=== PATIENT | male | born 1955 | race Caucasian/White ===

== ENCOUNTER → 2020-03-20 08:00 | Outpatient (BNVA) | payer BC, SELFPAY | PROVIDERS: PCP Internal Medicine; Visit Provider Physician Assistant | DX: Z76.89 Persons encountering health services in other specified circumstances (principal) ==

== ENCOUNTER 2020-03-25 07:49 | Outpatient (REF) | payer BC, SELFPAY ==
--- NOTE | 2020-03-25 | US_ITS ---
EXAMINATION: US RETROPERITONEAL LIMITED (RENAL ONLY) CLINICAL INFORMATION: Calculus of kidney COMPARISON: Renal ultrasounds 08/07/2019 and 01/22/2019. CT abdomen and pelvis 07/15/2017. X-ray abdomen KUB 12/31/2015. TECHNIQUE: Real-time imaging of the kidneys. FINDINGS: RIGHT KIDNEY: 13.1 x 5.3 x 7.0 cm (SAG x AP x TRV). The kidney is normal in size, contour, and echogenicity. Renal cortical thickness is normal. There is an anechoic cyst in the upper pole measuring 1.0 x 0.8 x 0.9 cm. There is an echogenic stone in the lower pole measuring 0.4 x 0.3 x 0.4 cm. There is no caliectasis or hydronephrosis. LEFT KIDNEY: 12.6 x 6.3 x 5.4 cm (SAG x AP x TRV). The kidney is normal in size, contour, and echogenicity. Renal cortical thickness is normal. No calculi or focal parenchymal lesions. No hydronephrosis. US/US renal BI IMPRESSION: 1. Small echogenic nonobstructive stone, lower pole right kidney. There is an anechoic cyst in the upper pole right kidney. 2. Unremarkable left kidney.
== END 2020-03-25 07:50 | disposition home or self-care (01) ==
LOC: HO.US 07:49
PROVIDERS: PCP Internal Medicine; Visit Provider Urology
DX: N20.0 Calculus of kidney (principal)
CPT/HCPCS: 76775

== ENCOUNTER 2020-05-29 11:31 | Day surgery (SDC) | payer BC, SELFPAY ==
[2020-05-23 15:10] VITALS: BMI 96.0
--- NOTE | 2020-05-28 08:39 | HO.ANESPROP2 ---
Documented by User: Morenita Ramires 05/28/20 08:47 HPI - Anesthesia Eval Consult details Narrative: 64yo M for Colonoscopy PMFSH Active Problems Active Problems: All Active Problems (Updated 05/23/20 @ 15:09 by Kathrine Maddox) HTN (hypertension) (Acute) Diabetes (Acute) Adenomatous colon polyp (Acute) Past Medical History Medical History Adenomatous colon polyp Diabetes HTN (hypertension) Hx of renal calculi Family History Family History Father CVD (cardiovascular disease) Mother Cancer Colon cancer Surgical History Surgical History H/O lithotripsy History of parotidectomy Hx of colonoscopy Hx of cystoscopy Tumor of parotid gland Social History Social History Household Members: Spouse Alcohol intake: current Alcohol intake frequency: holidays/special occasions only Smoking Status: Former smoker Smoking Quit Date: 2018 Use of substances other than those prescribed or required for medical reasons: No Advance Directives: No Advance Directives Information Provided: No Advance Directives on File: No Current occupational status: employed Current occupation: [employer] Meds Allergies Allergy/AdvReac Type Severity Reaction Status Date / Time mold Allergy Intermediate HAYFEVER Verified 01/24/20 09:03 metformin AdvReac Severe severe Verified 05/23/20 15:02 fatigue; exhaustion DUST Allergy Intermediate HAYFEVER Uncoded 01/03/20 14:39 Home Medications Medication Instructions Recorded Confirmed Last Taken Type glipizide 5 mg tablet 5 mg PO DAILY 01/25/20 05/23/20 Unknown History hydrochlorothiazide 25 mg tablet 25 mg PO DAILY 01/25/20 05/23/20 Unknown History lisinopril 40 mg tablet 40 mg PO DAILY 01/25/20 05/23/20 Unknown History sitagliptin 100 mg tablet 100 mg PO DAILY 01/25/20 05/23/20 Unknown History aspirin [Aspir-81] 81 mg PO DAILY 05/23/20 05/23/20 Unknown History Exam Exam Date and Time: May 28, 2020 0839 Height,Weight and Vital Signs: Height 5 ft 6 in Weight 270 kg Assessment and Plan Assessment Anesthesia Assessment: Chart Reviewed Documented by User: John Knox 05/29/20 12:09 PMFSH Past Medical History Medical History Adenomatous colon polyp Diabetes HTN (hypertension) Hx of renal calculi Family History Family History Father CVD (cardiovascular disease) Mother Cancer Colon cancer Surgical History Surgical History H/O lithotripsy History of parotidectomy Hx of colonoscopy Hx of cystoscopy Tumor of parotid gland Social History Social History Household Members: Spouse Alcohol intake: current Alcohol intake frequency: holidays/special occasions only Smoking Status: Former smoker Smoking Quit Date: 2018 Use of substances other than those prescribed or required for medical reasons: No Advance Directives: No Advance Directives Information Provided: No Advance Directives on File: No Current occupational status: employed Current occupation: [employer] Meds Allergies Allergy/AdvReac Type Severity Reaction Status Date / Time mold Allergy Intermediate HAYFEVER Verified 01/24/20 09:03 metformin AdvReac Severe severe Verified 05/23/20 15:02 fatigue; exhaustion DUST Allergy Intermediate HAYFEVER Uncoded 01/03/20 14:39 Home Medications Medication Instructions Recorded Confirmed Last Taken Type glipizide 5 mg tablet 5 mg PO DAILY 01/25/20 05/23/20 Unknown History hydrochlorothiazide 25 mg tablet 25 mg PO DAILY 01/25/20 05/23/20 Unknown History lisinopril 40 mg tablet 40 mg PO DAILY 01/25/20 05/23/20 Unknown History sitagliptin 100 mg tablet 100 mg PO DAILY 01/25/20 05/23/20 Unknown History aspirin [Aspir-81] 81 mg PO DAILY 05/23/20 05/23/20 Unknown History Exam Airway Mallampati Class: III TM Dist: >3cm Neck ROM: Full
[2020-05-29 12:02] VITALS: BP 151/94; PULSE 91; RESP 18; TEMP 36.8; O2SAT 97; BMI 43.6
[2020-05-29 12:03] LABS: Glucose, Whole Blood 189 mg/dL (60-115)
--- NOTE | 2020-05-29 12:15 | P.HPSUR_ITS ---
Pre-Procedural Eval Section B Chief Complaint: benign neoplasm of colon Relevant Family History (Specify if Yes): Yes Relevant Social History: None Present Medications: see Short Stay Collaborative assessment Medical History: Significant History (Adenomatous colon polyp Diabetes HTN (hypertension) Hx of renal calculi) History of Previous Operations: Relevant previous surgery/procedure and date(s) (H/O lithotripsy History of parotidectomy Hx of colonoscopy Hx of cystoscopy Tumor of parotid gland) Allergies: Allergies Allergy/AdvReac Type Severity Reaction Status Date / Time mold Allergy Intermediate HAYFEVER Verified 01/24/20 09:03 metformin AdvReac Severe severe Verified 05/23/20 15:02 fatigue; exhaustion DUST Allergy Intermediate HAYFEVER Uncoded 01/03/20 14:39 Review of Systems Sugical H&P ROS: Negative: Constitution, Cardiovascular, Respiratory, Neurologic al, Psychiatric, Hem-Onc, Allergic/Immunologic, Gastrointestinal, Genitourinary, Musculoskeletal, Integumentary, Endocrine and Eyes/Ears/Nose/Throat Exam Surgical H&P Exam: Normal: HEENT, Normal: Heart, Normal: Lungs, Normal: Extremities, Normal: Abdomen, Normal: Skin and Normal: Neurological Plan Diagnosis/Plan: Unchanged I have reviewed the history and physical and performed a pertinent physical examination on my patient. No changes have occurred unless specified.
[2020-05-29] MEDS: Lactated Ringers 1,000 ML 100 ML IVCONT (12:25)
--- NOTE | 2020-05-29 13:04 | P.OP_ITS ---
Operative Note Operative Note Date of Service: 05/29/20 Narrative: Operative Information Procedure Description: Colonoscopy COLONOSCOPY Instrument: Olympus variable stiffness pediatric scope 190L Colonoscopy Monitoring: Vital signs and clinical assessment, continuous EKG monitoring, Pulse oximetry, Carbon Dioxide monitoring and blood pressure monitoring were done throughout the procedure. Colon withdrawal time was 14 minutes. Procedure: The patient was placed in the left lateral decubitis position and pre-procedure medications were administered. After a digital rectal examination of the ano-rectum, the video colonoscope was inserted into the rectum and advanced through the colon to the cecum/TI. The colonoscope was slowly withdrawn in a retrograde panoramic fashion and the colon mucosa was carefully examined including a retroflexed view of the rectum. Findings and interventions are described below. Procedure Difficulty:easy Findings: Terminal Ileum-normal Cecum:normal Ascending Colon: x 3 sessile polyps removed, x2 removed with cold snare measured between 10-14 mm each and the third removed with forceps measured about 7 mm. One clip applied to the largest lesion defect, and retrieved polyp with net. Transverse Colon -normal Descending Colon: 7-8 mm sessile polyp removed with forceps Sigmoid Colon: moderate diverticulosis noted Rectum: Retroflexion with moderate sized internal hemorrhoids, grade I, prominent skin tag noted, small pinch biopsy taken due to slight irregularity at edge of it Anorectum - normal Colon preparation: [place] Bowel Preparation Scale Right colon; 2 Transverse colon: 3 Left colon; 3 (0 = Unprepared colon segment with mucosa not seen due to solid stool that cannot be cleared. 1 = Portion of mucosa of the colon segment seen, but other areas of the colon segment not well seen due to staining, residual stool and/or opaque liquid. 2 = Minor amount of residual staining, small fragments of stool and/or opaque liquid, but mucosa of colon segment seen well. 3 = Entire mucosa of colon segment seen well with no residual staining, small fragments of stool or opaque liquid) Impression and Post Procedure Diagnosis: polyps internal hemorrhoids diverticular disease Plan: High fiber diet leaflet Avoid straining at stool, epsom salts and sitz bath, anusol supps or cream prn Repeat Colonoscopy in 3 years or earlier if clinically indicated Above findings were reviewed with the patient and relevant handouts were provided if indicated.
--- NOTE | 2020-05-29 13:04 | PM.OP ---
Brief Operative Note Date of Service: 05/29/20 Pre-op diagnosis: hx of polyps Post-op diagnosis: same Procedure: see op note Surgeon: Valery Amor MD Anesthesia: MAC Estimated blood loss (mL): 0 Condition: stable Disposition: PACU
[2020-05-29 13:09] VITALS: BP 128/77; PULSE 81; RESP 20; TEMP 36.6; O2SAT 98
[2020-05-29 13:24] VITALS: BP 132/82; PULSE 78; RESP 20; TEMP 36.7; O2SAT 98
== END 2020-05-29 13:55 | disposition home or self-care (01) ==
PROVIDERS: PCP Internal Medicine; Visit Provider Internal Medicine Gastroenterology
PROC: 0DJD8ZZ Inspection of Lower Intestinal Tract, Via Natural or Artificial Opening Endoscopic (ICD-10-PCS; CPT 45378; principal; 2020-05-29 12:50)
DX: Z12.11 Encounter for screening for malignant neoplasm of colon (principal); D12.2 Benign neoplasm of ascending colon; D12.4 Benign neoplasm of descending colon; K57.30 Diverticulosis of large intestine without perforation or abscess without bleeding; K64.0 First degree hemorrhoids; K64.4 Residual hemorrhoidal skin tags; Z86.010 Personal history of colon polyps; I10 Essential (primary) hypertension; E11.9 Type 2 diabetes mellitus without complications; Z79.84 Long term (current) use of oral hypoglycemic drugs
CPT/HCPCS: 45380; 45385; 82947; 88305

== ENCOUNTER → 2020-08-07 08:45 | Outpatient (BNVA) | payer SELFPAY | PROVIDERS: PCP Internal Medicine; Visit Provider Physician Assistant Medical | DX: M47.892 Other spondylosis, cervical region (principal) ==

== ENCOUNTER 2020-11-10 07:44 | Outpatient (REF) | payer BC, SELFPAY ==
[2020-11-10 08:29] LABS: MANUAL DIFF FLAG NO
[2020-11-10 08:34] LABS: Basophils Absolute Auto 0.1 X10*3/uL (0.0-0.2); Basophils Percent Auto 0.8 % (0-2); Eosinophils Absolute Auto 0.3 X10*3/uL (0.0-0.4); Eosinophils Percent Auto 3.5 % (0-4); Hematocrit 44.5 % (42-52); Hemoglobin 15.7 g/dl (14.0-18.0); Imm Gran Abs Auto 0.05 X10*3/uL (0.00-0.03); Imm Gran Pct Auto 0.6 % (0.0-0.4); Lymphocytes Percent Auto 26.2 % (20-40); Mean Corpuscular HGB Conc 35.3 g/dl (31.0-36.0); Mean Corpuscular Hemoglobin 29.8 pg (27.0-33.0); Mean Corpuscular Volume 84.4 fL (80-98); Mean Platelet Volume 10.3 fL (9.4-12.4); Monocytes Absolute Auto 0.9 X10*3/uL (0.1-1.2); Monocytes Percent Auto 11.2 % (2-11); Neutrophils Absolute Auto 4.5 X10*3/uL (2.0-8.3); Neutrophils Percent Auto 57.7 % (45-73); Platelet Count 231 X10*3/uL (160-400); Red Blood Count 5.27 X10*6/uL (4.60-5.80); Red Cell Distribution Width 12.5 % (11.0-16.0); White Blood Count 7.8 X10*3/uL (4.8-10.8)
[2020-11-10 09:01] LABS: Alanine Aminotransferase 60 U/L (0-40); Alkaline Phosphatase 66 U/L (39-117); Anion Gap 14 (12-20); Aspartate Amino Transferase 50 U/L (5-37); Bilirubin Total 0.4 mg/dL (0.0-1.0); Blood Urea Nitrogen 12 mg/dL (9-16); Calcium 9.2 mg/dL (8.4-10.2); Carbon Dioxide 32 mmol/L (22-29); Chloride 97 mmol/L (96-108); Cholesterol 201 mg/dL; Estimated Glomerular Filt Rate > 60; Glucose Fasting 222 mg/dL (60-99); HDL Cholesterol 33 mg/dL; LDL Cholesterol Calculated 108 mg/dl; Sodium 140 mmol/L (135-145); Total Protein 7.1 g/dL (6.5-8.0); Triglycerides 304 mg/dL
[2020-11-10 09:03] LABS: Estimated Average Glucose 194 mg/dL; Hemoglobin A1c % 8.4 %
[2020-11-10 09:22] LABS: TSH reflex Free T4 2.26 uIU/mL (0.32-4.0)
[2020-11-10 10:35] LABS: Glucose Urine UA NEG (NEG); Leukocyte Esterase Urine NEG (NEG); Nitrite Urine NEG (NEG); PH 6.5 (5.0-8.0); Urine Blood NEG (NEG); Urine Ketones NEG (NEG); Urine Protein TRACE MG/DL (NEG-TRACE)
[2020-11-10 10:42] LABS: Appearance Urine CLEAR; Color Urine YELLOW
[2020-11-10 11:10] LABS: Creatinine Urine 268.92 mg/dL
== END 2020-11-10 07:45 | disposition home or self-care (01) ==
LOC: HO.LAB 07:44
PROVIDERS: Absent Provider Urology; PCP Internal Medicine; Visit Provider Internal Medicine
DX: Z01.83 Encounter for blood typing (principal); E66.01 Morbid (severe) obesity due to excess calories; Z68.41 Body mass index [BMI] 40.0-44.9, adult; E11.9 Type 2 diabetes mellitus without complications; E78.00 Pure hypercholesterolemia, unspecified; I10 Essential (primary) hypertension; N20.0 Calculus of kidney; G47.33 Obstructive sleep apnea (adult) (pediatric)
CPT/HCPCS: 36415; 80053; 80061; 81003; 82043; 83036; 84443; 85025; 86900; 86901

== ENCOUNTER → 2020-11-13 11:02 | Outpatient (BNVA) | payer BC, SELFPAY | PROVIDERS: PCP Internal Medicine; Visit Provider Urology ==

== ENCOUNTER 2021-07-29 07:13 | Outpatient (REF) | payer OTHER, SELFPAY ==
[2021-07-29 07:26] LABS: MANUAL DIFF FLAG NO
[2021-07-29 08:00] LABS: Basophils Absolute Auto 0.1 X10*3/uL (0.0-0.2); Basophils Percent Auto 0.8 % (0-2); Eosinophils Absolute Auto 0.5 X10*3/uL (0.0-0.4); Eosinophils Percent Auto 5.1 % (0-4); Hematocrit 44.5 % (42.0-52.0); Hemoglobin 15.6 g/dl (14.0-18.0); Imm Gran Abs Auto 0.09 X10*3/uL (0.00-0.03); Imm Gran Pct Auto 0.9 % (0.0-0.4); Lymphocytes Absolute Auto 2.4 X10*3/uL (1.2-4.9); Lymphocytes Percent Auto 23.9 % (20-40); Mean Corpuscular HGB Conc 35.1 g/dl (31.0-36.0); Mean Corpuscular Hemoglobin 30.8 pg (27.0-33.0); Mean Corpuscular Volume 87.8 fL (80.0-98.0); Mean Platelet Volume 10.3 fL (9.4-12.4); Monocytes Percent Auto 9.5 % (2-11); Neutrophils Percent Auto 59.8 % (45-73); Platelet Count 266 X10*3/uL (160-400); Red Blood Count 5.07 X10*6/uL (4.60-5.80); Red Cell Distribution Width 12.9 % (11.0-16.0); White Blood Count 10.1 X10*3/uL (4.8-10.8)
[2021-07-29 08:25] LABS: Alanine Aminotransferase 45 U/L (0-40); Alkaline Phosphatase 66 U/L (39-117); Anion Gap 15 (12-20); Aspartate Amino Transferase 37 U/L (5-37); Bilirubin Total 0.7 mg/dL (0.0-1.0); Blood Urea Nitrogen 13 mg/dL (9-16); Calcium 9.5 mg/dL (8.4-10.2); Carbon Dioxide 28 mmol/L (22-29); Chloride 99 mmol/L (96-108); Cholesterol 192 mg/dL; Estimated Glomerular Filt Rate > 60; Glucose Fasting 173 mg/dL (60-99); HDL Cholesterol 36 mg/dL; LDL Cholesterol Calculated 111 mg/dl; Potassium 3.6 mmol/L (3.3-5.1); Sodium 138 mmol/L (135-145); Total Protein 7.1 g/dL (6.5-8.0); Triglycerides 227 mg/dL
[2021-07-29 08:28] LABS: Estimated Average Glucose 154 mg/dL
[2021-07-29 08:52] LABS: TSH reflex Free T4 1.76 uIU/mL (0.32-4.0); Vitamin D 25-OH Total 11.6 ng/mL (>30)
[2021-07-29 11:36] LABS: Appearance Urine CLEAR; Color Urine YELLOW; Glucose Urine UA NEG (NEG); Leukocyte Esterase Urine NEG (NEG); Nitrite Urine NEG (NEG); PH 6.5 (5.0-8.0); Urine Blood NEG (NEG); Urine Ketones NEG (NEG); Urine Protein NEG (NEG-TRACE)
[2021-07-29 12:51] LABS: Creatinine Urine 140.45 mg/dL; Microalbum/Creatinine Ratio Ur 6.4 ug/mg cr
== END 2021-07-29 07:14 | disposition home or self-care (01) ==
LOC: HO.LAB 07:13
PROVIDERS: PCP Internal Medicine; Visit Provider Internal Medicine
DX: E11.65 Type 2 diabetes mellitus with hyperglycemia (principal); I10 Essential (primary) hypertension; E78.00 Pure hypercholesterolemia, unspecified; E55.9 Vitamin D deficiency, unspecified; N20.0 Calculus of kidney
CPT/HCPCS: 36415; 80053; 80061; 81003; 82043; 82306; 83036; 84443; 85025

== ENCOUNTER → 2021-08-06 11:17 | Outpatient (BNVA) | payer SELFPAY | PROVIDERS: PCP Internal Medicine; Visit Provider Physician Assistant | DX: Z02.79 Encounter for issue of other medical certificate (principal) ==

== ENCOUNTER 2021-12-17 06:28 | Outpatient (REF) | payer OTHER, SELFPAY ==
[2021-12-17 06:52] LABS: MANUAL DIFF FLAG NO
[2021-12-17 07:21] LABS: Estimated Average Glucose 137 mg/dL; Hemoglobin A1c % 6.4 %
[2021-12-17 07:35] LABS: Appearance Urine Clear; Color Urine Yellow; Glucose Urine UA Negative (Negative); Leukocyte Esterase Urine Negative (Negative); Nitrite Urine Negative (Negative); Urine Blood Negative (Negative); Urine Ketones Negative (Negative); Urine Protein Negative (Neg-Trace)
[2021-12-17 07:37] LABS: Basophils Absolute Auto 0.1 X10*3/uL (0.0-0.2); Basophils Percent Auto 0.8 % (0-2); Eosinophils Absolute Auto 0.5 X10*3/uL (0.0-0.4); Eosinophils Percent Auto 5.9 % (0-4); Hematocrit 45.8 % (42.0-52.0); Hemoglobin 15.8 g/dl (14.0-18.0); Imm Gran Abs Auto 0.07 X10*3/uL (0.00-0.03); Imm Gran Pct Auto 0.8 % (0.0-0.4); Lymphocytes Absolute Auto 2.9 X10*3/uL (1.2-4.9); Lymphocytes Percent Auto 32.9 % (20-40); Mean Corpuscular HGB Conc 34.5 g/dl (31.0-36.0); Mean Corpuscular Hemoglobin 30.2 pg (27.0-33.0); Mean Corpuscular Volume 87.6 fL (80.0-98.0); Mean Platelet Volume 10.3 fL (9.4-12.4); Monocytes Absolute Auto 0.9 X10*3/uL (0.1-1.2); Monocytes Percent Auto 10.5 % (2-11); Neutrophils Absolute Auto 4.3 x10*3/uL (2.0-8.3); Neutrophils Percent Auto 49.1 % (45-73); Platelet Count 239 X10*3/uL (160-400); Red Blood Count 5.23 X10*6/uL (4.60-5.80); White Blood Count 8.7 X10*3/uL (4.8-10.8)
[2021-12-17 07:47] LABS: Alanine Aminotransferase 38 U/L (0-40); Albumin Level 3.9 g/dL (3.5-5.0); Alkaline Phosphatase 64 U/L (39-117); Anion Gap 16 (12-20); Aspartate Amino Transferase 31 U/L (5-37); Bilirubin Total 0.4 mg/dL (0.0-1.0); Blood Urea Nitrogen 19 mg/dL (9-16); Calcium 8.9 mg/dL (8.4-10.2); Carbon Dioxide 29 mmol/L (22-29); Chloride 100 mmol/L (96-108); Cholesterol 222 mg/dL; Estimated Glomerular Filt Rate > 60; Glucose Fasting 154 mg/dL (60-99); HDL Cholesterol 37 mg/dL; LDL Cholesterol Calculated 132 mg/dl; Potassium 3.8 mmol/L (3.3-5.1); Sodium 141 mmol/L (135-145); Total Protein 6.9 g/dL (6.5-8.0); Triglycerides 268 mg/dL
[2021-12-17 08:08] LABS: TSH reflex Free T4 2.73 uIU/mL (0.32-4.0); Vitamin D 25-OH Total 27.5 ng/mL (>30)
[2021-12-17 08:37] LABS: Creatinine Urine 129.08 mg/dL; Microalbum/Creatinine Ratio Ur 6.1 ug/mg cr
== END 2021-12-17 06:29 | disposition home or self-care (01) ==
LOC: HO.LAB 06:28
PROVIDERS: PCP Internal Medicine; Visit Provider Internal Medicine
DX: I10 Essential (primary) hypertension (principal); E11.9 Type 2 diabetes mellitus without complications; E78.00 Pure hypercholesterolemia, unspecified; E55.9 Vitamin D deficiency, unspecified
CPT/HCPCS: 36415; 80053; 80061; 81003; 82043; 82306; 83036; 84443; 85025

== ENCOUNTER 2021-12-18 13:31 | Outpatient (REF) | payer OTHER, SELFPAY ==
--- NOTE | ~2021-12-18 | US_ITS ---
EXAMINATION: US RETROPERITONEAL LIMITED (RENAL ONLY) CLINICAL INFORMATION: Calculus kidney. COMPARISON: Renal ultrasound 03/25/2020 and 08/07/2019. CT abdomen and pelvis 07/15/2017. X-ray KUB 12/31/2015. TECHNIQUE: Real-time imaging of the kidneys. FINDINGS: RIGHT KIDNEY: 10.7 x 5.5 x 6.2 cm (SAG x AP x TRV). The kidney is normal in size, contour, and echogenicity. Renal cortical thickness is normal. There is a 5 x 4 mm stone in the lower pole. There is a 1 cm cyst in the upper pole. No hydronephrosis. LEFT KIDNEY: 12.7 x 6.2 x 5.5 cm (SAG x AP x TRV). The kidney is normal in size, contour, and echogenicity. Renal cortical thickness is normal. No calculi or focal parenchymal lesions. No hydronephrosis. US/US renal BI IMPRESSION: Right renal stone. Small right renal cyst..
== END 2021-12-18 13:32 | disposition home or self-care (01) ==
LOC: HO.US 13:31
PROVIDERS: Visit Provider Urology
DX: N20.0 Calculus of kidney (principal)
CPT/HCPCS: 76775

== ENCOUNTER 2022-05-13 07:08 | Outpatient (REF) | payer OTHER, SELFPAY ==
[2022-05-13 07:19] LABS: MANUAL DIFF FLAG NO
[2022-05-13 07:33] LABS: Basophils Absolute Auto 0.1 X10*3/uL (0.0-0.2); Basophils Percent Auto 0.8 % (0-2); Eosinophils Absolute Auto 0.5 X10*3/uL (0.0-0.4); Eosinophils Percent Auto 5.3 % (0-4); Hematocrit 47.6 % (42.0-52.0); Hemoglobin 16.4 g/dl (14.0-18.0); Imm Gran Abs Auto 0.07 X10*3/uL (0.00-0.03); Imm Gran Pct Auto 0.7 % (0.0-0.4); Lymphocytes Absolute Auto 2.7 X10*3/uL (1.2-4.9); Lymphocytes Percent Auto 27.1 % (20-40); Mean Corpuscular HGB Conc 34.5 g/dl (31.0-36.0); Mean Corpuscular Hemoglobin 29.6 pg (27.0-33.0); Mean Corpuscular Volume 85.9 fL (80.0-98.0); Mean Platelet Volume 10.2 fL (9.4-12.4); Monocytes Absolute Auto 1.1 X10*3/uL (0.1-1.2); Monocytes Percent Auto 10.4 % (2-11); Neutrophils Absolute Auto 5.6 x10*3/uL (2.0-8.3); Neutrophils Percent Auto 55.7 % (45-73); Platelet Count 261 X10*3/uL (160-400); Red Blood Count 5.54 X10*6/uL (4.60-5.80); Red Cell Distribution Width 12.6 % (11.0-16.0); White Blood Count 10.1 X10*3/uL (4.8-10.8)
[2022-05-13 07:42] LABS: Estimated Average Glucose 169 mg/dL; Hemoglobin A1c % 7.5 %
[2022-05-13 08:01] LABS: Alanine Aminotransferase 42 U/L (0-40); Alkaline Phosphatase 79 U/L (39-117); Anion Gap 15 (12-20); Aspartate Amino Transferase 40 U/L (5-37); Bilirubin Total 0.7 mg/dL (0.0-1.0); Blood Urea Nitrogen 18 mg/dL (9-16); Calcium 9.2 mg/dL (8.4-10.2); Carbon Dioxide 30 mmol/L (22-29); Chloride 99 mmol/L (96-108); Cholesterol 160 mg/dL; Estimated Glomerular Filt Rate > 60; Glucose Fasting 172 mg/dL (60-99); HDL Cholesterol 30 mg/dL; LDL Cholesterol Calculated 70 mg/dl; Potassium 3.5 mmol/L (3.3-5.1); Sodium 140 mmol/L (135-145); Total Protein 6.9 g/dL (6.5-8.0); Triglycerides 304 mg/dL
[2022-05-13 08:18] LABS: TSH reflex Free T4 1.97 uIU/mL (0.32-4.0); Vitamin D 25-OH Total 29.3 ng/mL (>30)
[2022-05-13 08:19] LABS: Appearance Urine Clear; Color Urine Yellow; Glucose Urine UA Negative (Negative); Leukocyte Esterase Urine Negative (Negative); Nitrite Urine Negative (Negative); Urine Blood Negative (Negative); Urine Ketones Negative (Negative); Urine Protein Negative (Neg-Trace)
[2022-05-13 08:34] LABS: Creatinine Urine 144.14 mg/dL; Microalbum/Creatinine Ratio Ur 7.6 ug/mg cr
== END 2022-05-13 07:09 | disposition home or self-care (01) ==
LOC: HO.LAB 07:08
PROVIDERS: PCP Internal Medicine; Visit Provider Internal Medicine
DX: E11.9 Type 2 diabetes mellitus without complications (principal); I10 Essential (primary) hypertension; E55.9 Vitamin D deficiency, unspecified; E78.00 Pure hypercholesterolemia, unspecified
CPT/HCPCS: 36415; 80053; 80061; 81003; 82043; 82306; 83036; 84443; 85025

== ENCOUNTER → 2022-07-09 09:10 | Outpatient (BNVA) | payer BC, SELFPAY | PROVIDERS: PCP Internal Medicine; Visit Provider Urology | DX: Z13.89 Encounter for screening for other disorder (principal) ==

== ENCOUNTER → 2022-07-12 08:59 | Outpatient (BNVA) | payer SELFPAY | PROVIDERS: PCP Internal Medicine; Visit Provider Physician Assistant Medical | DX: Z02.79 Encounter for issue of other medical certificate (principal) ==

== ENCOUNTER 2022-09-04 06:59 | Outpatient (REF) | payer BC, SELFPAY ==
[2022-09-04 07:45] LABS: Estimated Average Glucose 171 mg/dL; Hemoglobin A1c % 7.6 %
[2022-09-04 08:01] LABS: Alanine Aminotransferase 36 U/L (0-40); Albumin Level 3.7 g/dL (3.5-5.0); Alkaline Phosphatase 76 U/L (39-117); Anion Gap 11 (12-20); Aspartate Amino Transferase 34 U/L (5-37); Bilirubin Total 0.7 mg/dL (0.0-1.0); Blood Urea Nitrogen 12 mg/dL (9-16); Calcium 8.9 mg/dL (8.4-10.2); Carbon Dioxide 29 mmol/L (22-29); Chloride 104 mmol/L (96-108); Cholesterol 142 mg/dL; Estimated Glomerular Filt Rate > 60; Glucose Fasting 192 mg/dL (60-99); HDL Cholesterol 28 mg/dL; LDL Cholesterol Calculated 62 mg/dl; Potassium 3.4 mmol/L (3.3-5.1); Sodium 141 mmol/L (135-145); Total Protein 6.3 g/dL (6.5-8.0); Triglycerides 264 mg/dL
[2022-09-04 08:20] LABS: Appearance Urine Clear; Color Urine Yellow; Glucose Urine UA Negative (Negative); Leukocyte Esterase Urine Negative (Negative); Nitrite Urine Negative (Negative); Specific Gravity - Urine 1.025 (1.005-1.025); Urine Blood Negative (Negative); Urine Ketones Negative (Negative); Urine Protein Negative (Neg-Trace)
[2022-09-04 08:55] LABS: Creatinine Urine 218.27 mg/dL; Microalbum/Creatinine Ratio Ur 6.4 ug/mg cr
== END 2022-09-04 07:00 | disposition home or self-care (01) ==
LOC: HO.LAB 06:59
PROVIDERS: PCP Internal Medicine; Visit Provider Internal Medicine
DX: E78.00 Pure hypercholesterolemia, unspecified (principal); E11.9 Type 2 diabetes mellitus without complications; R30.0 Dysuria
CPT/HCPCS: 36415; 80053; 80061; 81003; 82043; 83036

== ENCOUNTER 2023-01-06 07:43 | Outpatient (REF) | payer MEDICARE, SELFPAY ==
--- NOTE | ~2023-01-06 | US_ITS ---
EXAMINATION: US RETROPERITONEAL LIMITED (RENAL ONLY) CLINICAL INFORMATION: Calculus of kidney. COMPARISON: Renal ultrasound 12/18/2021. CT abdomen and pelvis 07/15/2017. TECHNIQUE: Real-time imaging of the kidneys. FINDINGS: RIGHT KIDNEY: 12.4 x 6.0 x 6.1 cm (SAG x AP x TRV). The kidney is normal in size, contour, and echogenicity. Renal cortical thickness is normal. No hydronephrosis. Subcentimeter benign-appearing renal cysts, no follow-up imaging recommended. Nonobstructing lower pole renal stones measuring 7 mm, previously 8 mm and a new 4 mm nonobstructing lower pole renal stone. LEFT KIDNEY: 12.7 x 6.1 x 4.7 cm (SAG x AP x TRV). The kidney is normal in size, contour, and echogenicity. Renal cortical thickness is normal. No focal parenchymal lesions. Pelviectasis without rudi hydronephrosis. 2 mm nonobstructing left lower pole renal stone new from prior. US/US renal BI IMPRESSION: 1. Bilateral nonobstructing renal stones measuring up to 7 mm on the right and 2 mm on the left with some new from prior. 2. Left renal pelviectasis without rudi hydronephrosis.
== END 2023-01-06 07:44 | disposition home or self-care (01) ==
LOC: HO.US 07:43
PROVIDERS: PCP Internal Medicine; Visit Provider Urology
DX: N20.0 Calculus of kidney (principal)
CPT/HCPCS: 76775

== ENCOUNTER 2023-01-11 09:20 | Outpatient (AMB) | payer MEDICARE, SELFPAY ==
[2023-01-11 09:26] VITALS: BP 104/62; PULSE 98; O2SAT 99; BMI 45.1
--- NOTE | 2023-01-11 09:26 | A.OFFPC_ITS ---
Vital Signs 01/11/23 09:26 Height 5 ft 5 in Weight 271 lb BMI 45.1 BP 104/62 Blood Pressure Location Lt brachial Position Sitting Pulse 98 Pulse Source Pulse Oximeter Pulse Oximetry (%) 99 Oxygen Delivery Method Room Air Intake Visit Reasons: DM, hyperlipidemia, HTN Jd Edwards Consultant Required: No Accompanied by: Self / Same As Patient Allergies mold Allergy (Intermediate, Verified 01/11/23 09:54) HAYFEVER metformin Adverse Reaction (Severe, Verified 01/11/23 09:54) severe fatigue; exhaustion DUST Allergy (Intermediate, Uncoded 01/11/23 09:54) HAYFEVER Medication List - Last Reconciled 01/11/23 by Misha Lynne MD amlodipine 5 mg PO DAILY 90 days aspirin 81 mg PO DAILY atorvastatin 10 mg PO BEDTIME 90 days cholecalciferol (vitamin D3) 50 mcg PO DAILY 90 days clotrimazole-betamethasone 1-0.05 % 1 appl topical BID 2 weeks [CPAP DEVICE RESMED full face MASK MEDIUM As directed start 4-16 cm H2O hu midified AIR] glipizide ER 5 mg PO QAM 90 days hydrochlorothiazide 25 mg PO DAILY 90 days Januvia (sitagliptin phosphate) 100 mg PO DAILY 90 days NS lisinopril 40 mg PO DAILY 90 days orlistat (Eloy) 60 mg PO TID 30 days potassium chloride ER 20 mEq PO DAILY 90 days Tobacco use date assessed: 01/11/23 Fall risk assessment: No Falls in past year Last assessed Fall Risk: 01/11/23 Dental Screening Dental Screen Date: 01/11/23 Did you have a dental visit in the last 12 months?: No Did you have a dental problem in the last 6 months where you did not have access to dental care?: No Was dental information given to patient?: No HPI DM, hyperlipidemia, HTN HPI Details Patient comes in today for his follow up visit States that he feels okay He denies any headaches or dizziness Denies any chest pains, no SOB No nausea/vomiting, no abdominal pain No change in bowel habits noted Was not able to get his follow up labs done prior to his visit today [facility] Medical History Vitamin D deficiency Localized swelling, mass and lump, right upper limb Morbid obesity with BMI of 40.0-44.9, adult Obstructive sleep apnea Renal calculi Pure hypercholesterolemia Diabetes mellitus Benign essential hypertension Hx of renal calculi HTN (hypertension) Diabetes Adenomatous colon polyp Surgical History Hx of cystoscopy H/O lithotripsy Hx of colonoscopy (~03/15/17) 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 Family History Father CVD (cardiovascular disease) Mother Cancer Colon cancer Social History Household Members: Spouse Housing: House Alcohol intake: current Alcohol intake frequency: holidays/special occasions only Patient Tobacco Use Status: Former Tobacco user e-Cigarette/Vaping Use: Never Used Second Hand Smoke Exposure: No service: No Current occupational status: employed Current occupation: [employer] Cognitive needs: No Hearing needs: No Vision needs: No Questionnaire PHQ-9 Over the last 2 weeks, how often have you been bothered by any of the following problems? 1. Little interest or pleasure in doing things: not at all 2. Feeling down, depressed, or hopeless: not at all 3. Trouble falling or staying asleep, or sleeping too much: not at all 4. Feeling tired or having little energy: not at all 5. Poor appetite or overeating: not at all 6. Feeling bad about yourself - or that you are a failure or have let yourself or your family down: not at all 7. Trouble concentrating on things, such as reading the newspaper or watching television: not at all 8. Moving or speaking so slowly that other people could have noticed. Or the opposite - being so fidgety or restless that you have been moving around a lot more than usual: not at all 9. Thoughts that you would be better off or of hurting yourself in some way: not at all Total score: 0 Depression Screening Interpretation: Negative 84163 - PHQ-9 Billing: Yes Source: Developed by Drs. Jarad Vee, Stephany Nino, Ebenezer Ramirez and colleagues, with an educational dinh from [employer]. Thrive Questionnaire Date Thrive assessed: 01/11/23 I am a: Patient What is your living situation today?: I have a steady place to live Within the past 12 months, did the food you bought not last and you didn't have the money to get more?: Never true Within the past 12 months, did you worry whether your food would run out before you got money to buy more?: Never true Do you have trouble paying for medicines?: No Do you have trouble getting transportation to medical appointments?: No Do you have trouble paying your heating and electricity bill?: No Do you have trouble taking care of your child, family member or friend?: No Do you have trouble with day-to-day activities such as bathing, preparing meals, shopping, managing finances, etc.?: No Are you currently unemployed and looking for a job?: No Are you interested in more education?: No Please select the resources that you would like help with: None Currently or been in a relationship where the following occur: no concerns reported AUDIT C Alcohol Use Questionnaire (AUDIT-C) 1. How often do you have a drink containing alcohol?: Monthly or less 2. How many drinks containing alcohol do you have on a typical day when you are drinking?: 1 or 2 3. How often do you have six or more drinks on one occasion?: Never Total Score: 1 Score Reviewed/Action Taken: Yes JASPREET-7 AMB Questionnaire JASPREET-7 Date JASPREET - 7 assessed: 01/11/23 Feeling nervous, anxious, or on edge: 0 = Not at all Not being able to stop or control worryin = Not at all Worrying too much about different things: 0 = Not at all Trouble relaxin = Not at all Being so restless that it is hard to sit still: 0 = Not at all Becoming easily annoyed or irritable: 0 = Not at all Feeling afraid as if something awful might happen: 0 = Not at all Total JASPREET-7 score (0-4 normal; 5-9 mild; 10-14 moderate; 15-21 severe): 0 Source: Developed by Drs. Jarad Vee, Stephany Nino, Ebenezer Ramirez and colleagues, with an educational dinh from [employer]. Review of Systems Const Denies chills, Denies fatigue, Denies fever(s) and Denies headache(s) ENT Denies dysphagia, Denies dizziness, Denies otalgia, Denies headache(s), Denies neck pain, Denies odynophagia and Denies sore throat Card Denies chest pain, Denies palpitations and Denies dyspnea Resp Denies cough and Denies dyspnea GI Denies abdominal pain, Denies constipation, Denies dysphagia, Denies heartburn, Denies diarrhea, Denies nausea, Denies odynophagia and Denies vomiting Denies dysuria, Denies nocturia and Denies urinary frequency Musc Denies neck pain Neuro Denies dizziness and Denies headache(s) Endo Denies fatigue and Denies palpitations Physical exam (Primary Care) Vital Signs: Last Vital Signs Pulse 98 01/11/23 09:26 BP 104/62 01/11/23 09:26 Pulse Ox 99 01/11/23 09:26 Oxygen Delivery Method Room Air 01/11/23 09:26 BMI result Body Mass Index 45.1 Tobacco/Smoking Status: Tobacco use Status Tobacco use date assessed 01/11/23 01/11/23 09:39 Patient Tobacco Use Status Former Tobacco user 01/11/23 09:39 e-Cigarette/Vaping Use Never Used 01/11/23 09:39 PHQ-9: PHQ-9 Score PHQ-9: Total score 0 01/11/23 09:39 Depression Screening Interpretation: Negative Thrive Assessment: Date of Thrive Assessment Date Thrive assessed 01/11/23 01/11/23 09:39 Currently or been in a relationship where the following occur: no concerns reported Const General: no acute distress and alert HENMT Ears: TM's normal bilaterally and EAC's normal Throat: Yes posterior oropharynx normal and Yes tonsils normal (no TP congestion noted) Neck Neck: Yes no lymphadenopathy and Yes supple Resp Auscultation: clear to auscultation bilaterally, no rales and no wheezes Cardio Rate: regular rate Rhythm: regular rhythm Heart sounds: no murmurs GI Palpation (GI): Soft to palpation and nontender Auscultation: normal bowel sounds Extrem General: Yes no clubbing, cyanosis or edema Results AMB Hemoglobin A1c AMB Hemoglobin A1c 8.7 % Last Edit by Everett Rao on 01/11/23 09:57 Assessment and Plan Assessment & Plan (1) Diabetes mellitus: Code(s): E11.9 - Type 2 diabetes mellitus without complications Qualifiers: Diabetes mellitus type: type 2 Diabetes mellitus terminal clerk insulin use: without half-way use Diabetes mellitus complication status: with hyperglycemia Qualified Code(s): E11.65 - Type 2 diabetes mellitus with hyperglycemia Plan: In-office HgbA1c done today is at 8.7% (HgbA1c was at 7.6% a few months ago) - goal is < 7.0% Reinforced diabetic diet States that he is still on his [place] diet, which has helped him a lot in the past Continue Glipizide ER 5 mg Q AM and Januvia 100 mg QD for now but discussed that we may need to make some changes to his medications if he is not able to get his diabetes control back to goal over the next few months (2) Benign essential hypertension: Code(s): I10 - Essential (primary) hypertension Plan: Reinforced low sodium diet - goal is systolic BP of at least 130 to 140 mm or less Continue Lisinopril 40 mg QD, HCTZ 25 mg QD in AM and Amlodipine 5 mg QD (3) Pure hypercholesterolemia: Code(s): E78.00 - Pure hypercholesterolemia, unspecified Plan: Was not able to get his follow up labs done prior to his appointment today Reinforced low cholesterol diet Continue [place]-3 capsules 340 mg QD and Atorvastatin 10 mg QD Will recheck his labs and fasting lipids in 4 months for follow up - lab orders are printed out and handed to patient to help remind him to get these done in a few months BEFORE his next appointment (4) Obstructive sleep apnea: Code(s): G47.33 - Obstructive sleep apnea (adult) (pediatric) Plan: Patient continues to use his CPAP device regularly/daily when sleeping at night - states that it is helping a lot (5) Vitamin D deficiency: Code(s): E55.9 - Vitamin D deficiency, unspecified Plan: Continue Vitamin D3 2000 units QD Will recheck his Vitamin D level in 4 months for follow up (6) Renal calculi: Code(s): N20.0 - Calculus of kidney Plan: Composition of his stones in the past were mostly calcium oxalate He has been asymptomatic lately; is encouraged to continue to increase his oral fluid intake Just had a repeat renal US done a few days ago that revealed (+) bilateral nonobstructing renal stones measuring up to 7 mm on the right and 2 mm on the left with some new from prior. Left renal pelviectasis without rudi hydronephrosis Follow up with urology (Dr. Mckenzie) as scheduled (7) Morbid obesity with BMI of 40.0-44.9, adult: Code(s): E66.01 - Morbid (severe) obesity due to excess calories; Z68.41 - Body mass index [BMI] 40.0-44.9, adult Plan: Reinforced diet/exercise as tolerated/lose weight Plan Follow up in 4 months Orders: Orders Complete Blood Count Auto Diff 4 Months I10 - Essential (primary) hypertension Comprehensive [place]. Panel Fast 4 Months E78.00 - Pure hypercholesterolemia, unspecified Lipid Panel 4 Months E78.00 - Pure hypercholesterolemia, unspecified TSH reflex Free T4 4 Months E78.00 - Pure hypercholesterolemia, unspecified UA CC w/rflx Micro + Cult 4 Months R30.0 - Dysuria Hemoglobin A1c 4 Months E11.9 - Type 2 diabetes mellitus without complications Microalbumin, Random (w Creat) 4 Months E11.9 - Type 2 diabetes mellitus without complications AMB Hemoglobin A1c Today Z13.9 - Encounter for screening, unspecified Vitamin D 25-OH Total 4 Months E55.9 - Vitamin D deficiency, unspecified Coding Level of Care Code Est Pt Level 4 (47101) Diagnoses Type 2 diabetes mellitus with hyperglycemia, without long-term current use of insulin E11.65 Diabetes mellitus type: type 2 Diabetes mellitus terminal clerk insulin use: without terminal clerk use Diabetes mellitus complication status: with hyperglycemia Benign essential hypertension I10 Pure hypercholesterolemia E78.00 Obstructive sleep apnea G47.33 Vitamin D deficiency E55.9 Renal calculi N20.0 Morbid obesity with BMI of 40.0-44.9, adult E66.01; Z68.41
== END 2023-01-11 10:10 | disposition home or self-care (01) ==
PROVIDERS: Visit Provider Internal Medicine
DX: E11.65 Type 2 diabetes mellitus with hyperglycemia (principal); I10 Essential (primary) hypertension; E66.01 Morbid (severe) obesity due to excess calories; Z68.41 Body mass index [BMI] 40.0-44.9, adult
CPT/HCPCS: 83036; 99214

== ENCOUNTER 2023-01-12 08:49 | Outpatient (AMB) | payer MEDICARE, SELFPAY ==
--- NOTE | 2023-01-12 09:20 | MHC.OFFVIS ---
Intake Intake Visit Reasons: 6m/US(set) Intake Note: Patient is Present for Follow Up US Urology Medication: None Antibiotic Allergies: None Blood Thinners: Aspirin Pharmacy: [facility] Allergies mold Allergy (Intermediate, Verified 01/11/23 09:54) HAYFEVER metformin Adverse Reaction (Severe, Verified 01/11/23 09:54) severe fatigue; exhaustion DUST Allergy (Intermediate, Uncoded 01/11/23 09:54) HAYFEVER HPI HPI Comments History of Present Illness Details Mr Palmer is a very pleasant male. He is a patient of Dr Lynne. He is seen for the following urologic conditions. - nephrolithiasis Renal ultrasound 2 small stones on the right Otherwise stable Remain on potassium citrate Continue surveillance imaging Recently started podcast and YouTube channel Nephrolithiasis/Urolithiasis:? No imaging done recently Will plan on repeating in 6 months Should remain on potassium citrate Concomitant diagnosis includes diabetes ?Oxalate in sodium high ?Imaging 4 mm right stone ?Continue to follow. ? They are here for?further evaluation of nephrolithiasis ?- stone staying stable ? Urolithiasis was diagnosed?10/2015.? The patient previously had kidney stones whose composition w?calcium oxalate - monohydrate, calcium phosphate - brushite ?06/07 CaOxMono 75%.? Laboratory investigations include?pending.? 24 Hour urine evaluation?01/31 - Low Urine volume < 2.0 liters, Hypercalciuria (> 200mg), High oxalate > 30mg ?09/01 , Good Volume > 2.00 L, High Sodium (> 100mEq), High oxalate > 30mg, Hypercalciuria (> 200mg) ?07/03 , Good Volume > 2.00 L, Hypercalciuria (> 200mg), High Sodium (> 100mEq), High oxalate > 30mg, High Citrate ?02/02 , Good Volume > 2.00 L, High Citrate, High oxalate > 30mg, High Sodium (> 100mEq), Hypercalciuria (> 200mg ?08/04 , Good Volume > 2.00 L, Hypercalciuria (> 200mg) 282 ?09/04 good volume, high oxalate high sodium ? Prior treatment(s) include?01/31 , right, ureteroscopy ?09/01 , medical management, with allopurinol, , with thiazides ?07/03 indapamide, sildenafil ?06/07 USR right side ? Prior imaging includes?a CT (computed tomography) scan of the abdomen/pelvis (stone protocol) multiple right renal stones. Largest is 9 x 21 mm. Smaller right lower pole renal stones largest is 4 x 5 mm. Mild right hydronephrosis. No stone seen in the ureter. Left kidney no stone seen. ?02/01 - , a renal ultrasound - residual 5mm fragments ?07/03 , a renal ultrasound, showing radiodense stone(s), bilaterally ?08/03 , a CT (computed tomography) scan of the abdomen/pelvis (stone protocol), showing radiodense stone(s) small bilateral ?02/02 , a renal ultrasound right 5mm x3, left punctate ?08/04 , a renal ultrasound right 5mm x 3, left small ?02/03 , a renal ultrasound right multiple stones ?08/05 , a renal ultrasound, 4 mm right, nothing left - 04/06 renal ultrasound no stones seen - 01/07 renal ultrasound 4 mm right, no stone on left ? UA today shows?specific gravity within normal range suggestive of adequate hydration today.? Current therapeutic plan will be?indapamide 2.5, keep up fluids.? Risk, benefits and alternatives to therapy were discussed regarding the use and timing of prescribed medications. Pertinent side effects and interactions for medications were highlighted and adherence emphasized. 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 Family History Father CVD (cardiovascular disease) Mother Cancer Colon cancer Social History Household Members: Spouse Housing: House Alcohol intake: current Alcohol intake frequency: holidays/special occasions only Patient Tobacco Use Status: Former Tobacco user e-Cigarette/Vaping Use: Never Used Second Hand Smoke Exposure: No service: No Current occupational status: employed 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 [employer] Cognitive needs: No Hearing needs: No Vision needs: No Review of Systems Const Denies chills and Denies fever(s) Card Reports no additional complaints and Denies syncope Resp Denies cough GI Denies abdominal pain and Denies heartburn Reports as per HPI and Denies change in libido Neuro Denies syncope Psych Denies change in libido Endo Denies change in libido Physical Exam Const General: cooperative, healthy appearing, comfortable and no acute distress Orientation/consciousness: patient oriented x3 HEENT Face and sinus: Yes normal facial exam Mouth: moist mucous membranes Neck Neck: Yes normal visual inspection, Yes full ROM and Yes trachea midline Chest Chest palpation & inspection: normal inspection of the chest Resp Effort & Inspection: normal respiratory effort, able to speak in complete sentences and no respiratory distress GI Inspection: Yes normal to inspection Back/Spine/Pelvis Cervical Spine: normal cervical lordosis Thoracic/Lumbar Spine: thoracic and lumbar spine normal to inspection Skin General skin exam: no rashes or lesions noted Neuro General: patient oriented x3, gait normal, tone normal and moves all extremities Extrem General: Yes normal to inspection and Yes capillary refill normal Assessment & Plan Assessment & Plan (1) Renal calculi: Code(s): N20.0 - Calculus of kidney Plan Six month follow-up Orders: Orders Prostate Specific Antigen 6 Months N20.0 - Calculus of kidney US renal BI 6 Months N20.0 - Calculus of kidney Patient Instructions: Imaging studies, laboratory and physical exam results were discussed and reviewed in detail. No major barriers to patient understanding were identified. An opportunity to ask questions regarding the treatment plan was provided. All questions were answered. The patient expressed understanding and agreement with the above treatment plan. The patient is aware they should contact our office by phone for worsening of their current condition or the appearance of new urologic symptoms. Compliance is encouraged with any medications and followup testing that is ordered. It is a privilege to participate in the urologic care of your patient. If you have any questions or concerns regarding treatment for the above conditions, or other urologic issues, please do not hesitate to contact me. The office telephone contact is [phone]. This note is constructed using voice recognition software. While every effort has been made to ensure accuracy red leader errors may have been included. Yours sincerely, Dr Magdi Mckenzie MD, [facility] - Urology Providers of Expert, Compassionate Care for the Genitourinary System Coding Level of Care Code Est Pt Level 3 (58638) Diagnoses Renal calculi N20.0
== END 2023-01-12 10:16 | disposition home or self-care (01) ==
PROVIDERS: PCP Internal Medicine; Visit Provider Urology
DX: N20.0 Calculus of kidney (principal)
CPT/HCPCS: 99213

== ENCOUNTER → 2023-01-12 08:49 | Outpatient (BNVA) | payer BC, SELFPAY | PROVIDERS: Visit Provider Urology | DX: N20.0 Calculus of kidney (principal) | CPT/HCPCS: 99212 ==

== ENCOUNTER 2023-01-31 13:28 | Outpatient (AMB) | payer MEDICARE, SELFPAY ==
[2023-01-31 13:29] VITALS: BP 110/78; PULSE 98; O2SAT 97; BMI 44.0
--- NOTE | 2023-01-31 13:29 | A.OFFPC_ITS ---
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 Accompanied by: Self / Same As Patient Allergies mold Allergy (Intermediate, Verified 01/31/23 13:41) HAYFEVER metformin Adverse Reaction (Severe, Verified 01/31/23 13:41) severe fatigue; exhaustion DUST Allergy (Intermediate, Uncoded 01/31/23 13:41) HAYFEVER Medication List - Last Reconciled 01/31/23 by Misha Lynne MD amlodipine 5 mg PO DAILY 90 days aspirin 81 mg PO DAILY atorvastatin 10 mg PO BEDTIME 90 days cholecalciferol (vitamin D3) 50 mcg PO DAILY 90 days clotrimazole-betamethasone 1-0.05 % 1 appl topical BID 2 weeks [CPAP DEVICE RESMED full face MASK MEDIUM As directed start 4-16 cm H2O humid ified AIR] glipizide ER 5 mg PO QAM 90 days hydrochlorothiazide 25 mg PO DAILY 90 days Januvia (sitagliptin phosphate) 100 mg PO DAILY 90 days NS lisinopril 40 mg PO DAILY 90 days orlistat (Eloy) 60 mg PO TID 30 days potassium chloride ER 20 mEq PO DAILY 90 days Tobacco use date assessed: 01/31/23 Fall risk assessment: No Falls in past year Last assessed Fall Risk: 01/31/23 Dental Screening Dental Screen Date: 01/31/23 Did you have a dental visit in the last 12 months?: Yes Did you have a dental problem in the last 6 months where you did not have access to dental care?: No Was dental information given to patient?: Patient has dentist HPI right knee pain HPI Details Patient comes in complaining of increased right knee pain lately, primarily over the anteromedial side of the knee States that he has been moving a lot of stuffs in and out of his car lately but does not recall any particular incident wherein he could have hurt his knee States that he's had knee problems for years as 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) and often hears/feels a lot of clicking in his knees but states that they have never hurt as much as his right knee is now States that he has also noticed some swelling in his right knee lately No other acute complaints or symptoms are noted [facility] Medical History Vitamin D deficiency Localized swelling, mass and lump, right upper limb Morbid obesity with BMI of 40.0-44.9, adult Obstructive sleep apnea Renal calculi Pure hypercholesterolemia Diabetes mellitus Benign essential hypertension Hx of renal calculi HTN (hypertension) Diabetes Adenomatous colon polyp Surgical History Hx of cystoscopy H/O lithotripsy Hx of colonoscopy (~03/15/17) 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 1. Little interest or pleasure in doing things: not at all 2. Feeling down, depressed, or hopeless: not at all 3. Trouble falling or staying asleep, or sleeping too much: not at all 4. Feeling tired or having little energy: not at all 5. Poor appetite or overeating: not at all 6. Feeling bad about yourself - or that you are a failure or have let yourself or your family down: not at all 7. Trouble concentrating on things, such as reading the newspaper or watching television: not at all 8. Moving or speaking so slowly that other people could have noticed. Or the opposite - being so fidgety or restless that you have been moving around a lot more than usual: not at all 9. Thoughts that you would be better off or of hurting yourself in some way: not at all Total score: 0 Depression Screening Interpretation: Negative Depression Screening Done: Yes 30197 - PHQ-9 Billing: Yes Source: Developed by Drs. Jarad Vee, Stephany Nino, Ebenezer Ramirez and colleagues, with an educational dinh from [employer]. Thrive Questionnaire Date Thrive assessed: 01/31/23 I am a: Patient What is your living situation today?: I have a steady place to live Within the past 12 months, did the food you bought not last and you didn't have the money to get more?: Never true Within the past 12 months, did you worry whether your food would run out before you got money to buy more?: Never true Do you have trouble paying for medicines?: No Do you have trouble getting transportation to medical appointments?: No Do you have trouble paying your heating and electricity bill?: No Do you have trouble taking care of your child, family member or friend?: No Do you have trouble with day-to-day activities such as bathing, preparing meals, shopping, managing finances, etc.?: No Are you currently unemployed and looking for a job?: No Are you interested in more education?: No Please select the resources that you would like help with: None Currently or been in a relationship where the following occur: no concerns reported AUDIT C Alcohol Use Questionnaire (AUDIT-C) 1. How often do you have a drink containing alcohol?: Monthly or less 2. How many drinks containing alcohol do you have on a typical day when you are drinking?: 1 or 2 3. How often do you have six or more drinks on one occasion?: Never Total Score: 1 Score Reviewed/Action Taken: Yes JASPREET-7 AMB Questionnaire JASPREET-7 Date JASPREET - 7 assessed: 01/31/23 Feeling nervous, anxious, or on edge: 0 = Not at all Not being able to stop or control worryin = Not at all Worrying too much about different things: 0 = Not at all Trouble relaxin = Not at all Being so restless that it is hard to sit still: 0 = Not at all Becoming easily annoyed or irritable: 0 = Not at all Feeling afraid as if something awful might happen: 0 = Not at all Total JASPREET-7 score (0-4 normal; 5-9 mild; 10-14 moderate; 15-21 severe): 0 Source: Developed by Drs. Jarad Vee, Stephany Nino, Ebenezer Ramirez and colleagues, with an educational dinh from [email or web address]. Review of Systems Const Denies fatigue, Denies fever(s) and Denies headache(s) ENT Denies dysphagia, Denies dizziness, Denies headache(s), Denies neck pain, Denies odynophagia and Denies sore throat Card Denies chest pain, Denies palpitations and Denies dyspnea Resp Denies cough and Denies dyspnea GI Denies abdominal pain, Denies constipation, Denies dysphagia, Denies diarrhea, Denies nausea, Denies odynophagia and Denies vomiting Denies dysuria, Denies nocturia and Denies urinary frequency Musc Reports arthralgias (over the right knee lately, mostly over the anteromedial area), Reports joint swelling (mild, in the right knee) and Denies neck pain Neuro Denies dizziness and Denies headache(s) Endo Denies fatigue and Denies palpitations Physical exam (Primary Care) Vital Signs: Last Vital Signs Pulse 98 01/31/23 13:29 BP 110/78 01/31/23 13:29 Pulse Ox 97 01/31/23 13:29 Oxygen Delivery Method Room Air 01/31/23 13:29 BMI result Body Mass Index 44.0 Tobacco/Smoking Status: Tobacco use Status Tobacco use date assessed 01/31/23 01/31/23 13:34 Patient Tobacco Use Status Former Tobacco user 01/31/23 13:34 e-Cigarette/Vaping Use Never Used 01/31/23 13:34 PHQ-9: PHQ-9 Score PHQ-9: Total score 0 01/31/23 13:46 Depression Screening Interpretation: Negative Thrive Assessment: Date of Thrive Assessment Date Thrive assessed 01/31/23 01/31/23 13:34 Currently or been in a relationship where the following occur: no concerns reported Const General: no acute distress and alert Neck Neck: Yes no lymphadenopathy and Yes supple Resp Auscultation: clear to auscultation bilaterally, no rales and no wheezes Cardio Rate: regular rate Rhythm: regular rhythm Heart sounds: no murmurs GI Palpation (GI): Soft to palpation and nontender Extrem General: Yes no clubbing, cyanosis or edema Right lower extremity: knee Details: tenderness Location: of the medial joint line and swelling (mild) Assessment and Plan Assessment & Plan (1) Right knee pain: Code(s): M25.561 - Pain in right knee Qualifiers: Chronicity: unspecified Qualified Code(s): M25.561 - Pain in right knee Plan: Will send patient for right knee x-rays CHUNG for further evaluation Advised that further recommendations will depend on how his knee x-rays come out and that there is a possibility that we may need to refer him to orthopedics (2) Knee clicking: Code(s): R29.898 - Other symptoms and signs involving the musculoskeletal system Plan: Will also send him for left knee x-rays for further evaluation Plan Follow up as scheduled in April 2023 and PRN Orders: Orders XR knee RT 4V 01/31/23 M25.561 - Pain in right knee XR knee LT 4V 01/31/23 M25.562 - Pain in left knee Coding Level of Care Code Est Pt Level 3 (33829) Diagnoses Right knee pain, unspecified chronicity M25.561 Chronicity: unspecified Knee clicking R29.898
== END 2023-01-31 13:49 | disposition home or self-care (01) ==
PROVIDERS: PCP Internal Medicine; Visit Provider Internal Medicine
DX: M25.561 Pain in right knee (principal); R29.898 Other symptoms and signs involving the musculoskeletal system
CPT/HCPCS: 99213

== ENCOUNTER 2023-01-31 13:53 | Outpatient (REF) | payer MEDICARE, SELFPAY ==
--- NOTE | ~2023-01-31 | XR_ITS ---
EXAMINATION: XR KNEE, LEFT CLINICAL INFORMATION: Left knee pain COMPARISON: None available. TECHNIQUE: Four views of the left knee. FINDINGS: There is no evidence of fracture or dislocation. There is minimal spurring consistent lateral tibial plateau. There is narrowing and subluxation of the patella laterally. No evidence of joint effusion XR/XR knee LT 4V IMPRESSION: Changes of osteoarthritis in the patellofemoral compartment and lateral tibial plateau.
--- NOTE | ~2023-01-31 | XR_ITS ---
EXAMINATION: XR KNEE, RIGHT CLINICAL INFORMATION: Right knee pain COMPARISON: None available. TECHNIQUE: Four views of the right knee. FINDINGS: There is no evidence of fracture, dislocation. There is no narrowing of the joint spaces except of mild narrowing of the lateral compartment of patellofemoral joint. There is minimal marginal spurring seen in the lateral tibial plateau and lateral femoral condyle as well as patella. There is patellar enthesopathy. There is no joint effusion. XR/XR knee RT 4V IMPRESSION: Mild changes of degenerative osteoarthritis
== END 2023-01-31 13:54 | disposition home or self-care (01) ==
LOC: HO.XRAY 13:53
PROVIDERS: PCP Internal Medicine; Visit Provider Internal Medicine
DX: M25.561 Pain in right knee (principal); M25.562 Pain in left knee
CPT/HCPCS: 73564

== ENCOUNTER 2023-02-09 08:26 | Outpatient (AMB) | payer MEDICARE, SELFPAY ==
--- NOTE | 2023-02-09 08:36 | MHC.OFFVIS ---
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 The patient states that he injured his right knee several years ago. 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 He had acute onset of pain. Patient also has intermittent discomfort in his left knee. He states that his left knee pain is tolerable to him at this time. He describes his right knee pain as sharp in nature. Most of the pain is along the medial aspect of his knee. He has had injections in the past which gave him minimal relief. He has also done physical therapy for 12 weeks over the last 6 months which aggravated his pain. He has tried Tylenol and anti-inflammatory medicines which gave him minimal relief. The patient states that his right knee will give out several times per day. Allergies mold Allergy (Intermediate, Verified 02/09/23 08:45) HAYFEVER metformin Adverse Reaction (Severe, Verified 02/09/23 08:45) severe fatigue; exhaustion DUST Allergy (Intermediate, Uncoded 01/31/23 13:41) HAYFEVER Medication List - Last Reconciled 02/09/23 by Cas Francois MD amlodipine 5 mg PO DAILY 90 days aspirin 81 mg PO DAILY atorvastatin 10 mg PO BEDTIME 90 days cholecalciferol (vitamin D3) 50 mcg PO DAILY 90 days clotrimazole-betamethasone 1-0.05 % 1 appl topical BID 2 weeks [CPAP DEVICE RESMED full face MASK MEDIUM As directed start 4-16 cm H2O humidified AIR] glipizide ER 5 mg PO QAM 90 days hydrochlorothiazide 25 mg PO DAILY 90 days Januvia (sitagliptin phosphate) 100 mg PO DAILY 90 days NS lisinopril 40 mg PO DAILY 90 days orlistat (Eloy) 60 mg PO TID 30 days potassium chloride ER 20 mEq PO DAILY 90 days [facility] Medical History Vitamin D deficiency Localized swelling, mass and lump, right upper limb Morbid obesity with BMI of 40.0-44.9, adult Obstructive sleep apnea Renal calculi Pure hypercholesterolemia Diabetes mellitus Benign essential hypertension Hx of renal calculi HTN (hypertension) Diabetes Adenomatous colon polyp Surgical History Hx of cystoscopy H/O lithotripsy Hx of colonoscopy (~03/15/17) 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 Family History Father CVD (cardiovascular disease) Mother Cancer Colon cancer Social History Household Members: Spouse Housing: House Alcohol intake: current Alcohol intake frequency: holidays/special occasions only Patient Tobacco Use Status: Former Tobacco user e-Cigarette/Vaping Use: Never Used Second Hand Smoke Exposure: No service: No Current occupational status: employed 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 [employer] Cognitive needs: No Hearing needs: No Vision needs: No Physical Exam Const Other: Well-nourished well-developed very friendly male awake alert and oriented x3 in no acute distress Extrem Other: Bilateral lower extremity examination shows good capillary refill, no skin lesions noted, normal sensation light touch Right knee examination shows a minimal effusion, minimal crepitus with range of motion, tenderness along his medial joint line, positive Massiel's test, no instability Results Reviewed Results Reviewed: X-rays of the patient's right knee show mild diffuse joint space narrowing, no acute bony abnormalities Assessment & Plan Assessment & Plan (1) Right knee pain: Code(s): M25.561 - Pain in right knee Qualifiers: Chronicity: unspecified Qualified Code(s): M25.561 - Pain in right knee Plan Mr. Palmer presents with right knee pain and mechanical symptoms most likely due to a tear of his medial meniscus. Thus, I will send the patient for an MRI of his right knee for further evaluation. I will see him back once the MRI is completed to discuss the findings and treatment options. He will continue with his activity modifications in the meantime. Feel free to call me at any time should questions regarding his orthopedic management arise. Thank you very much for asking me to see this very friendly gentleman. I spent 22 minutes in reviewing the patient's records and imaging studies, seeing the patient and documenting in the medical record. Orders: Orders MR knee RT wo con Today M23.305 - Other meniscus derangements, unspecified medial meniscus, unspecified knee Coding Level of Care Code New Pt Level 2 (52923) Diagnoses Right knee pain, unspecified chronicity M25.561 Chronicity: unspecified
== END 2023-02-09 09:00 | disposition home or self-care (01) ==
PROVIDERS: PCP Internal Medicine; Visit Provider Orthopaedic Surgery
DX: M25.561 Pain in right knee (principal)
CPT/HCPCS: 99202

== ENCOUNTER → 2023-02-09 08:26 | Outpatient (BNVA) | payer MEDICARE, SELFPAY | PROVIDERS: PCP Internal Medicine; Visit Provider Orthopaedic Surgery | DX: M25.561 Pain in right knee (principal) | CPT/HCPCS: 99202 ==

== ENCOUNTER 2023-02-21 18:58 | Outpatient (REF) | payer MEDICARE, SELFPAY ==
--- NOTE | ~2023-02-21 | MR_ITS ---
EXAMINATION: MR KNEE WITHOUT CONTRAST, RIGHT CLINICAL INFORMATION: Right knee pain with minimal swelling. Evaluate for a meniscal tear. COMPARISON: Right knee radiographs dated 01/31/2023. TECHNIQUE: MRI of the knee without contrast was performed using routine sequences on a high-field scanner. FINDINGS: MENISCI: Medial Meniscus: Complex tearing of the posterior meniscal body with a near-complete radial component measuring up to 1.5 cm in AP dimension. There is a superiorly displaced meniscal flap adjacent to the meniscal body measuring up to 0.9 cm in craniocaudal dimension. Complex tearing extends along the inner margin and tibial articular surface of the posterior horn and root. Lateral Meniscus: Intact. LIGAMENTS: Cruciate: Intact. Collateral: Intact. EXTENSOR MECHANISM: Superior patellar enthesophytes. Intact quadriceps and patellar tendons. ARTICULAR CARTILAGE/BONE: Patellofemoral Compartment: Patellar median ridge and superior lateral patellar facet articular cartilage thinning with areas of full-thickness fissuring and mild subchondral cystic change. Central and medial trochlear signal heterogeneity and surface irregularity. Tiny marginal osteophytes. Medial Compartment: Weightbearing articular cartilage thinning with areas of full-thickness loss at the medial femoral condyle and medial tibial plateau where there is mild underlying subchondral marrow edema. Marginal osteophytes. Lateral Compartment: Intact articular cartilage. JOINT FLUID AND BURSAE: Moderate joint effusion and trace Stacy's cyst. MR/MR knee RT wo con IMPRESSION: 1. Complex tearing of the posterior medial meniscal body with a near-complete radial component as well as a superiorly displaced meniscal flap. Complex tearing extends along the inner margin and tibial articular surface of the posterior horn and root. 2. Moderate medial as well as mild patellofemoral compartment osteoarthritis. Moderate joint effusion and trace Stacy's cyst.
== END 2023-02-21 18:59 | disposition home or self-care (01) ==
LOC: HO.MRI 18:58
PROVIDERS: PCP Internal Medicine; Visit Provider Orthopaedic Surgery
DX: M23.303 Other meniscus derangements, unspecified medial meniscus, right knee (principal)
CPT/HCPCS: 73721

== ENCOUNTER 2023-02-23 10:23 | Outpatient (AMB) | payer MEDICARE, SELFPAY ==
--- NOTE | 2023-02-23 08:33 | A.OFFVIS_ITS ---
Intake Vital Signs 02/23/23 10:30 Height 5 ft 5 in Weight 264 lb BMI 43.9 Intake Visit Reasons: OV-B/L Knee injection Intake Note: Vincent is a 67 year old male who presents with complaints of progressively worsening right knee pain and giving way. Patient describes his pain as sharp in nature. His pain has gotten worse over the last year in spite of continued non operative treatments. He did injure his knee approximately 1 year ago. He twisted his knee and had acute onset of pain. He has tried Tylenol and anti- inflammatory medicines which gave him minimal relief. He has also done physical therapy exercises which aggravated his pain. Allergies mold Allergy (Intermediate, Verified 02/23/23 10:35) HAYFEVER metformin Adverse Reaction (Severe, Verified 02/23/23 10:35) severe fatigue; exhaustion DUST Allergy (Intermediate, Uncoded 01/31/23 13:41) HAYFEVER PFSH Medical History Vitamin D deficiency Localized swelling, mass and lump, right upper limb Morbid obesity with BMI of 40.0-44.9, adult Obstructive sleep apnea Renal calculi Pure hypercholesterolemia Diabetes mellitus Benign essential hypertension Hx of renal calculi HTN (hypertension) Diabetes Adenomatous colon polyp Surgical History Hx of cystoscopy H/O lithotripsy Hx of colonoscopy (~03/15/17) 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 Family History Father CVD (cardiovascular disease) Mother Cancer Colon cancer Social History Household Members: Spouse Housing: House Alcohol intake: current Alcohol intake frequency: holidays/special occasions only Patient Tobacco Use Status: Former Tobacco user e-Cigarette/Vaping Use: Never Used Second Hand Smoke Exposure: No service: No Current occupational status: employed Current occupation: [employer] Cognitive needs: No Hearing needs: No Vision needs: No Physical Exam Vital Signs: BMI result Body Mass Index 43.9 Const Other: Well-nourished well-developed very friendly male awake alert and oriented x3 in no acute distress Extrem Other: Bilateral lower extremity examination shows good capillary refill, no skin lesions noted, normal sensation light touch Right knee examination shows a minimal effusion, minimal crepitus with range of motion, tenderness along his medial joint line, positive Massiel's test, no instability Results Reviewed Results Reviewed: 02/23/23 10:29 Lidocaine HCl 2 % MPF [Xylocaine 2 % MPF] 5 ml .ROUTE .STK-MED ONE Triamcinolone Acetonide [Kenalog-40] 40 mg .ROUTE .STK-MED ONE MRI of the patient's right knee shows mild diffuse joint space narrowing as well as a tear of his medial meniscus, no acute bony abnormalities Assessment & Plan Assessment & Plan (1) Right knee pain: Code(s): M25.561 - Pain in right knee Qualifiers: Chronicity: unspecified Qualified Code(s): M25.561 - Pain in right knee Plan: Mr. Palmer presents with right knee pain and mechanical symptoms due to early degenerative joint disease as well as a tear of his medial meniscus. I had a lengthy discussion with the patient regarding the treatment options. She wishes to hold off on surgery for as long as possible. I agree with his plan. The risks and benefits of a right knee cortisone injection were discussed at length with the patient. The patient wished to proceed. He tolerated the injection well. He will continue with his activity modifications. He will follow up with me on an as-needed basis should his symptoms not plateau at an unacceptable level over the next few months. Feel free to call me at any time should questions regarding his orthopedic management arise. I spent 22 minutes in reviewing the patient's records and imaging studies, seeing the patient and documenting in the medical record. Orders: Orders AMB Joint Injection/Aspiration 02/23/23 M25.561 - Pain in right knee Coding Level of Care Code Est Pt Level 2 (18765) Diagnoses Right knee pain, unspecified chronicity M25.561 Chronicity: unspecified
[2023-02-23 10:30] VITALS: BMI 43.9
== END 2023-02-23 11:14 | disposition home or self-care (01) ==
PROVIDERS: PCP Internal Medicine; Visit Provider Orthopaedic Surgery
DX: M25.561 Pain in right knee (principal)
CPT/HCPCS: 20610; 99212

== ENCOUNTER → 2023-02-23 10:23 | Outpatient (BNVA) | payer MEDICARE, SELFPAY | PROVIDERS: PCP Internal Medicine; Visit Provider Orthopaedic Surgery | DX: M25.561 Pain in right knee (principal) | CPT/HCPCS: 20610; 99212; J3301 ==

== ENCOUNTER 2023-03-17 07:46 | Outpatient (AMB) | payer MEDICARE, SELFPAY ==
[2023-03-17 07:52] VITALS: BP 118/80; PULSE 92; O2SAT 98; BMI 43.9
--- NOTE | 2023-03-17 07:52 | A.OFFPC_ITS ---
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 Accompanied by: Self / Same As Patient Allergies mold Allergy (Intermediate, Verified 03/17/23 07:57) HAYFEVER metformin Adverse Reaction (Severe, Verified 03/17/23 07:57) severe fatigue; exhaustion DUST Allergy (Intermediate, Uncoded 01/31/23 13:41) HAYFEVER Tobacco use date assessed: 01/31/23 Fall risk assessment: No Falls in past year Last assessed Fall Risk: 03/17/23 Dental Screening Dental Screen Date: 03/17/23 Did you have a dental visit in the last 12 months?: No Did you have a dental problem in the last 6 months where you did not have access to dental care?: No Was dental information given to patient?: Patient has dentist HPI HPI Comments History of Present Illness Details 67-year-old male past medical history si gnificant for hypertension, type 2 diabetes mellitus, hypercholesteremia, ELIZABET and bilateral osteoarthritis of knees. Patient of Dr. Lynne presents today for preop appointment for right knee replacement under general anesthesia. Patient has upcoming surgery scheduled for 04/08/[address] Francois. Patient denies any previous complications to being under general anesthesia. Denies CP, palpitations, sob and syncope. Pre-op labs and EKG ordered. 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 Family History Father CVD (cardiovascular disease) Mother Cancer Colon cancer Social History Household Members: Spouse Housing: House Alcohol intake: current Alcohol intake frequency: holidays/special occasions only Patient Tobacco Use Status: Former Tobacco user e-Cigarette/Vaping Use: Never Used Second Hand Smoke Exposure: No service: No Current occupational status: employed 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 Jarad Vee, Stephany Nino, Ebenezer aRmirez and colleagues, with an educational dinh from [employer]. Review of Systems Const Denies chills, Denies fatigue, Denies fever(s) and Denies poor appetite Eyes Denies no additional complaints ENT Reports Normal hearing present Card Denies chest pain, Denies syncope, Denies rapid heart rate and Denies dyspnea Resp Denies cough and Denies dyspnea GI Denies change in stool character, Denies constipation, Denies diarrhea, Denies nausea and Denies vomiting Denies dysuria, Denies urinary frequency and Denies urinary urgency Neuro Reports Normal hearing present, Denies confusion and Denies syncope Psych Denies confusion Endo Denies fatigue Physical exam (Primary Care) Vital Signs: Last Vital Signs Pulse 92 03/17/23 07:52 BP 118/80 03/17/23 07:52 Pulse Ox 98 03/17/23 07:52 Oxygen Delivery Method Room Air 03/17/23 07:52 BMI result Body Mass Index 43.9 Tobacco/Smoking Status: Tobacco use Status Tobacco use date assessed 01/31/23 03/17/23 07:59 Patient Tobacco Use Status Former Tobacco user 03/17/23 07:59 e-Cigarette/Vaping Use Never Used 03/17/23 07:59 Thrive Assessment: Date of Thrive Assessment Date Thrive assessed 01/31/23 03/17/23 07:59 Const General: No confusion Orientation/consciousness: No confusion HENMT Head: Yes normocephalic and Yes atraumatic Eyes Conjunctivae: conjunctivae normal Chest Chest palpation & inspection: normal inspection of the chest Resp Effort & Inspection: normal respiratory effort Auscultation: clear to auscultation bilaterally, no crackles, no rhonchi and no wheezes Cardio Rate: regular rate Rhythm: regular rhythm Heart sounds: S1 normal heart sound present and S2 normal heart sound present GI Inspection: Yes normal to inspection General: Yes no CVA tenderness Back/Spine/Pelvis Back: no CVA tenderness Neuro General: No confusion Cranial nerves: Yes Normal hearing present Extrem General: No edema Assessment and Plan Assessment & Plan (1) HTN (hypertension): Code(s): I10 - Essential (primary) hypertension Plan: Continue on amlodipine, hydrochlorothiazide and lisinopril. Blood pressure below goal in office today. 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 Remember that fruits are good but they also have sugar. (3) Preop examination: Code(s): Z01.818 - Encounter for other preprocedural examination Plan: Preop labs and EKG ordered. Once preop labs and EKG reviewed addendum will be made to this note with patient able to proceed with scheduled right knee arthroscopy Patient advised to hold aspirin 7 days prior to procedure. Patient advised to hold glipizide and Januvia morning of procedure. Plan Keep scheduled follow-up with PCP or follow-up sooner if needed. Orders: Orders Comprehensive Met. Panel Today Z01.812 - Encounter for preprocedural laboratory examination Complete Blood Count Auto Diff Today Z01.812 - Encounter for preprocedural laboratory examination TSH reflex Free T4 Today Z13.29 - Encounter for screening for other suspected endocrine disorder Prothrombin Time INR Today Z01.812 - Encounter for preprocedural laboratory examination ECG 12 lead EKG Today Z01.818 - Encounter for other preprocedural examination Coding Level of Care Code Est Pt Level 3 (27441) Diagnoses HTN (hypertension) I10 Type 2 diabetes mellitus with hyperglycemia, without long-term current use of insulin E11.65 Diabetes mellitus type: type 2 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
== END 2023-03-17 09:48 | disposition home or self-care (01) ==
PROVIDERS: PCP Internal Medicine; Visit Provider Nurse Practitioner Family
DX: I10 Essential (primary) hypertension (principal); E11.65 Type 2 diabetes mellitus with hyperglycemia; Z01.818 Encounter for other preprocedural examination
CPT/HCPCS: 99213

== ENCOUNTER 2023-03-21 07:25 | Outpatient (REF) | payer MEDICARE, SELFPAY ==
[2023-03-21 07:42] LABS: MANUAL DIFF FLAG NO
[2023-03-21 08:36] LABS: Basophils Absolute Auto 0.1 X10*3/uL (0.0-0.2); Basophils Percent Auto 0.8 % (0-2); Eosinophils Absolute Auto 0.5 X10*3/uL (0.0-0.4); Hematocrit 48.2 % (42.0-52.0); Hemoglobin 16.5 g/dl (14.0-18.0); Imm Gran Abs Auto 0.06 X10*3/uL (0.00-0.03); Imm Gran Pct Auto 0.6 % (0.0-0.4); Lymphocytes Absolute Auto 2.8 X10*3/uL (1.2-4.9); Lymphocytes Percent Auto 29.1 % (20-40); Mean Corpuscular HGB Conc 34.2 g/dl (31.0-36.0); Mean Corpuscular Hemoglobin 29.7 pg (27.0-33.0); Mean Corpuscular Volume 86.8 fL (80.0-98.0); Mean Platelet Volume 10.3 fL (9.4-12.4); Monocytes Percent Auto 10.9 % (2-11); Neutrophils Absolute Auto 5.1 x10*3/uL (2.0-8.3); Neutrophils Percent Auto 53.6 % (45-73); Platelet Count 304 X10*3/uL (160-400); Red Blood Count 5.55 X10*6/uL (4.60-5.80); Red Cell Distribution Width 12.6 % (11.0-16.0); White Blood Count 9.6 X10*3/uL (4.8-10.8)
[2023-03-21 08:39] LABS: Prothrombin Time 11.8 SEC (11.1-13.3)
[2023-03-21 09:17] LABS: Alanine Aminotransferase 39 U/L (0-40); Albumin Level 3.9 g/dL (3.5-5.0); Alkaline Phosphatase 78 U/L (39-117); Anion Gap 14 (12-20); Aspartate Amino Transferase 32 U/L (5-37); Bilirubin Total 0.5 mg/dL (0.0-1.0); Blood Urea Nitrogen 13 mg/dL (9-16); Calcium 9.3 mg/dL (8.4-10.2); Carbon Dioxide 28 mmol/L (22-29); Chloride 101 mmol/L (96-108); Estimated Glomerular Filt Rate > 60; Glucose Random 196 mg/dL (60-115); Potassium 3.9 mmol/L (3.3-5.1); Sodium 139 mmol/L (135-145); Total Protein 7.1 g/dL (6.5-8.0)
[2023-03-21 09:25] LABS: TSH reflex Free T4 2.52 uIU/mL (0.32-4.0)
--- NOTE | 2023-03-21 13:16 | ECG_ITS ---
Test Reason : pre op Blood Pressure : / mmHG Vent. Rate : 101 BPM Atrial Rate : 101 BPM P-R Int : 180 ms QRS Dur : 084 ms QT Int : 352 ms P-R-T Axes : 025 029 035 degrees QTc Int : 456 ms Sinus tachycardia Otherwise normal ECG When compared with ECG of 07-MAY-2004 16:37, Premature atrial complexes are no longer Present Referred By: Olimpia Willis Electronically Signed By:ANDREW ALLEN
== END 2023-03-21 07:26 | disposition home or self-care (01) ==
LOC: HO.LAB 07:25
PROVIDERS: PCP Internal Medicine; Visit Provider Nurse Practitioner Family
DX: Z01.818 Encounter for other preprocedural examination (principal); Z01.812 Encounter for preprocedural laboratory examination; Z13.29 Encounter for screening for other suspected endocrine disorder
CPT/HCPCS: 36415; 80053; 84443; 85025; 85610; 93005

== ENCOUNTER → 2023-03-21 13:16 | Outpatient (BNV) | payer MEDICARE, SELFPAY | PROVIDERS: PCP Internal Medicine; Visit Provider Internal Medicine | DX: R00.0 Tachycardia, unspecified (principal) | CPT/HCPCS: 93010 ==

== ENCOUNTER 2023-03-29 08:55 | Outpatient (AMB) | payer MEDICARE, SELFPAY ==
--- NOTE | 2023-03-29 09:31 | MHC.OFFVIS ---
Intake Intake Visit Reasons: Pre-Rt Knee Intake Note: Vincent is a 67 year old male who presents with complaints of progressively worsening right knee pain and giving way. Patient describes his pain as sharp in nature. His pain has gotten worse over the last year in spite of continued non operative treatments. He did injure his knee approximately 1 year ago. He twisted his knee and had acute onset of pain. He has tried Tylenol and anti-inflammatory medicines which gave him minimal relief. He has also done physical therapy exercises which aggravated his pain. He has had multiple injections. The most recent injection gave him only temporary relief. The patient states that his right knee will give out several times per day. Allergies mold Allergy (Intermediate, Verified 03/17/23 07:57) HAYFEVER metformin Adverse Reaction (Severe, Verified 03/17/23 07:57) severe fatigue; exhaustion DUST Allergy (Intermediate, Uncoded 01/31/23 13:41) HAYFEVER PFSH Medical History (Updated 03/28/23 @ 10:28 by Brandy Cohen RN) Warthin's tumor Vitamin D deficiency Localized swelling, mass and lump, right upper limb Morbid obesity with BMI of 40.0-44.9, adult Obstructive sleep apnea Renal calculi Pure hypercholesterolemia Benign essential hypertension Hx of renal calculi HTN (hypertension) Diabetes Adenomatous colon polyp Surgical History (Updated 03/28/23 @ 10:26 by Brandy Cohen RN) Hx of cystoscopy Hx of cystoscopy H/O lithotripsy Hx of colonoscopy (~03/15/17) History of parotidectomy Family History Father CVD (cardiovascular disease) Mother Cancer Colon cancer Social History Household Members: Spouse Housing: House Alcohol intake: current Alcohol intake frequency: holidays/special occasions only Patient Tobacco Use Status: Former Tobacco user e-Cigarette/Vaping Use: Never Used Second Hand Smoke Exposure: No service: No Current occupational status: employed Current occupation: [employer] Cognitive needs: No Hearing needs: No Vision needs: No Physical Exam Const Other: Well-nourished well-developed very friendly male awake alert and oriented x3 in no acute distress Lungs - clear to auscultation bilaterally with symmetric expansion Cardiovascular exam - regular rate and rhythm Abdominal exam - soft nontender nondistended Extrem Other: Right knee examination shows a minimal effusion, minimal crepitus with range of motion, tenderness along his medial joint line, positive Massiel's test, no instability Results Reviewed Results Reviewed: Standing full weight-bearing x-rays of the patient's right knee show mild grade 1 diffuse joint space narrowing, no acute bony abnormalities MRI of the patient's right knee shows mild diffuse degenerative changes as well as a tear of the medial meniscus Assessment & Plan Assessment & Plan (1) Right knee pain: Code(s): M25.561 - Pain in right knee Qualifiers: Chronicity: unspecified Qualified Code(s): M25.561 - Pain in right knee Plan Mr. Palmer presents with right knee pain and mechanical symptoms due to a tear of his medial meniscus. I had a lengthy discussion with the patient regarding the treatment options. At this point he has failed continued non operative treatments. The risks and benefits of right knee arthroscopic surgery were discussed at length with the patient. The patient wishes to proceed with surgery. He does understand that he may not get 100% relief of his symptoms depending on the severity of his degenerative changes. Surgery will most likely involve right knee diagnostic arthroscopy with arthroscopic partial medial meniscectomy. The patient was given a prescription for Percocet at his preoperative appointment. He will follow-up as instructed. Feel free to call me at any time should questions regarding his orthopedic management arise. I spent 22 minutes in reviewing the patient's records and imaging studies, seeing the patient and documenting in the medical record. Medications: New oxycodone-acetaminophen 5-325 mg (Percocet) Partial Fill upon patient request. 1 tab PO Q6H PRN 20 tabs 0RF pain Coding Level of Care Code Est Pt Level 2 (39950) Diagnoses Right knee pain, unspecified chronicity M25.561 Chronicity: unspecified
== END 2023-03-29 09:41 | disposition home or self-care (01) ==
PROVIDERS: PCP Internal Medicine; Visit Provider Orthopaedic Surgery
DX: M25.561 Pain in right knee (principal)
CPT/HCPCS: 99212

== ENCOUNTER → 2023-03-29 08:55 | Outpatient (BNVA) | payer MEDICARE, SELFPAY | PROVIDERS: PCP Internal Medicine; Visit Provider Orthopaedic Surgery | DX: M25.561 Pain in right knee (principal) | CPT/HCPCS: 99212 ==

== ENCOUNTER 2023-04-08 09:30 | Day surgery (SDC) | payer MEDICARE, SELFPAY ==
[2023-03-29 12:14] VITALS: BP 111/70; PULSE 86; RESP 20; O2SAT 98; BMI 43.9
--- NOTE | 2023-03-29 12:27 | HO.ANESPROP2 ---
Documented by User: Morenita Ramires NP 03/29/23 12:34 HPI - Anesthesia Eval Consult details Narrative: 67yo M for Knee Arthroscopy, partial medial meniscectomy, possible lateral meniscectomy Medically optimized No recent illness No CP/SOB within limits of pain, able to do stairs ELIZABET. CPAP QHS. DM. Does not check BS at home PMFSH Active Problems Active Problems: All Active Problems (Updated 03/29/23 @ 12:08 by Brandy Cohen RN) Bilateral primary osteoarthritis of knee (Acute) Knee clicking (Acute) Left knee pain (Acute) Right knee pain (Acute) Rash (Acute) Dystrophic nail (Acute) Annual physical exam (Acute) Diabetes mellitus (Acute) Vitamin D deficiency (Acute) Localized swelling, mass and lump, right upper limb (Acute) Morbid obesity with BMI of 40.0-44.9, adult (Acute) Obstructive sleep apnea (Acute) Renal calculi (Acute) Pure hypercholesterolemia (Acute) Benign essential hypertension (Acute) HTN (hypertension) (Acute) Diabetes (Acute) Adenomatous colon polyp (Acute) Past Medical History Medical History (Updated 03/29/23 @ 12:08 by Brandy Cohen RN) Arthritis Warthin's tumor Vitamin D deficiency Localized swelling, mass and lump, right upper limb Morbid obesity with BMI of 40.0-44.9, adult Obstructive sleep apnea Renal calculi Pure hypercholesterolemia Benign essential hypertension Hx of renal calculi HTN (hypertension) Diabetes Adenomatous colon polyp Family History Family History Father CVD (cardiovascular disease) Mother Cancer Colon cancer Family history of problems with anesthesia: No Surgical History Surgical History (Updated 03/29/23 @ 12:09 by Brandy Cohen RN) Hx of appendectomy Hx of cystoscopy Hx of cystoscopy H/O lithotripsy Hx of colonoscopy (~03/15/17) History of parotidectomy History of Problems with Anesthesia: No Social History Social History Household Members: Spouse Housing: House Are you a primary intensive care anaesthetist to a significant other at home: No Do you presently have visiting nurse or other home services: No Alcohol intake: current Alcohol intake frequency: holidays/special occasions only Comment: uses cane as needed with current knee issue Patient Tobacco Use Status: Former Tobacco user Quit Date: age 62 Tobacco use type: Cigarette Years Smoked: 30 e-Cigarette/Vaping Use: Never Used Second Hand Smoke Exposure: No service: No Current occupational status: employed Current occupation: [employer] Cognitive needs: No Hearing needs: No Vision needs: No Meds Allergies Allergy/AdvReac Type Severity Reaction Status Date / Time mold Allergy Intermediate HAYFEVER Verified 03/17/23 07:57 metformin AdvReac Severe severe Verified 03/17/23 07:57 fatigue; exhaustion DUST Allergy Intermediate HAYFEVER Uncoded 01/31/23 13:41 Home Medications Medication Instructions Recorded Confirmed Last Taken Type aspirin 81 mg tablet,delayed 81 mg PO DAILY 05/23/20 03/29/23 05/29/20 History release Exam Height,Weight and Vital Signs: Height 5 ft 5 in Weight 119.748 kg Last Vital Signs Pulse 86 03/29/23 12:14 Resp 20 03/29/23 12:14 BP 111/70 03/29/23 12:14 Pulse Ox 98 03/29/23 12:14 O2 Del Method Room Air 03/29/23 12:14 Pertinent Lab Results Pertinent Lab Results: Laboratory Tests 03/21/23 07:40 WBC 9.6 Hgb 16.5 Hct 48.2 Plt Count 304 Sodium 139 Potassium 3.9 Chloride 101 Carbon Dioxide 28 BUN 13 Creatinine 1.00 Narrative Narrative: EKG 03/2023 Vent. Rate : 101 BPM Atrial Rate : 101 BPM P-R Int : 180 ms QRS Dur : 084 ms QT Int : 352 ms P-R-T Axes : 025 029 035 degrees QTc Int : 456 ms Sinus tachycardia Otherwise normal ECG When compared with ECG of 07-MAY-2004 16:37, Premature atrial complexes are no longer Present Airway Mallampati Class: III TM Dist: >3cm Neck ROM: Full Loose/Missing/Broken Teeth: Yes (missing molars) Heart: RRR Lungs: CTAB Assessment and Plan Assessment Anesthesia Assessment: Anesthesia Plan Discussed and PAT Visit Final Anesthetic Review Family History of Problems with Anesthesia: No History of Problems with Anesthesia: No Documented by User: Emmanuel Madrid MD 04/08/23 08:20 [facility] Past Medical History Medical History (Updated 03/29/23 @ 12:08 by Brandy Cohen, LORE) Arthritis Warthin's tumor Vitamin D deficiency Localized swelling, mass and lump, right upper limb Morbid obesity with BMI of 40.0-44.9, adult Obstructive sleep apnea Renal calculi Pure hypercholesterolemia Benign essential hypertension Hx of renal calculi HTN (hypertension) Diabetes Adenomatous colon polyp Family History Family History Father CVD (cardiovascular disease) Mother Cancer Colon cancer Surgical History Surgical History (Updated 03/29/23 @ 12:09 by Brandy Cohen RN) Hx of appendectomy Hx of cystoscopy Hx of cystoscopy H/O lithotripsy Hx of colonoscopy (~03/15/17) History of parotidectomy Social History Social History Household Members: Spouse Housing: House Are you a primary intensive care anaesthetist to a significant other at home: No Do you presently have visiting nurse or other home services: No Alcohol intake: current Alcohol intake frequency: holidays/special occasions only Comment: uses cane as needed with current knee issue Patient Tobacco Use Status: Former Tobacco user Quit Date: age 62 Tobacco use type: Cigarette Years Smoked: 30 e-Cigarette/Vaping Use: Never Used Second Hand Smoke Exposure: No service: No Current occupational status: employed Current occupation: [employer] Cognitive needs: No Hearing needs: No Vision needs: No Meds Allergies Allergy/AdvReac Type Severity Reaction Status Date / Time mold Allergy Intermediate HAYFEVER Verified 03/17/23 07:57 metformin AdvReac Severe severe Verified 03/17/23 07:57 fatigue; exhaustion DUST Allergy Intermediate HAYFEVER Uncoded 01/31/23 13:41 Home Medications Medication Instructions Recorded Confirmed Last Taken Type aspirin 81 mg tablet,delayed 81 mg PO DAILY 05/23/20 03/29/23 05/29/20 History release Assessment and Plan Final Anesthetic Review NPO: Yes ASA Class: III Final Preanesthetic Review: No Changes in Pt Med Stat, Meds/Allgs Chart Reviewed, Consent Obtained/Reviewed and Anes Risks/Benef Reviewed Patient Risk: Intermediate Procedure Risk: Intermediate Anesthetic Plan Anesthetic Plan: GA and Agree w/ Assess. and Plan Disposition: Standard PACU
[2023-04-08] VITALS (7 sets, daily range): BP systolic 103–142; BP diastolic 57–82; PULSE 72–97; RESP 16; TEMP 36–36.9; O2SAT 92–97; BMI 44.6
[2023-04-08 10:20] LABS: Glucose, Whole Blood 211 mg/dL (60-115)
[2023-04-08] MEDS: Lactated Ringers 1,000 ML 100 ML IVCONT (10:25)
--- NOTE | 2023-04-08 12:49 | P.BOP_ITS ---
Brief Operative Note Date of Service: 04/08/23 Pre-op diagnosis: Right knee medial meniscus tear Post-op diagnosis: same Procedure: Right knee diagnostic arthroscopy with right knee arthroscopic partial medial meniscectomy Implants: none Surgeon: Cas Francois MD Anesthesia: GLMA Was an Intelligent Systems Engineer used for this Procedure?: No Estimated blood loss (mL): 10 Pathology: none sent Condition: stable Disposition: PACU
--- NOTE | 2023-04-08 12:57 | W.PM.OPN ---
Operative Note Operative Note Date of Service: 04/08/23 Narrative: After the patient was identified as Vincent Palmer Jr. and his right knee was initialed by myself they were brought to the operating room where general anesthesia was induced by the anesthesiologist in routine fashion. The patient was given 2 g of IV Ancef for infection prophylaxis. A formal time-out was completed. The patient's right lower extremity was prepped and draped in sterile fashion. Marcaine with epinephrine was injected into the planned incision sites as well as their right knee joint. A # 11 scalpel blade was used to make an anterolateral portal 1 cm proximal to the joint line and 1 cm lateral to the patellar tendon. Blunt trocar technique was used into the suprapatellar pouch with the knee in extension. Diagnostic arthroscopy showed multiple bands of thickened plica which would be excised at the end of the procedure. There were no loose bodies or abnormalities found in either the medial or lateral gutters. There were diffuse grade 2 degenerative changes of the undersurface of the patella as well as grade 1 degenerative changes of the trochlear groove. The patient's knee was flexed to 45 degrees and a valgus force was placed upon it. The medial compartment was entered. An anteromedial portal was made 1 cm proximal to the joint line and 1 cm medial to the patellar tendon. Probing of the medial meniscus showed a radial tear of the posterior horn. A partial medial meniscectomy was performed using the arthroscopic shaver. Following the partial meniscectomy the remainder of the meniscus tissue was stable. There were diffuse grades 2 and 3 degenerative changes of the medial femoral condyle as well as diffuse grade 2 degenerative changes of the medial tibial plateau. The articular surface of the medial femoral condyle was made smooth using the arthroscopic shaver. The articular surface of the medial tibial plateau was already smooth so no chondroplasty was indicated. The patient's knee was then placed into a neutral position. There was no injury to the anterior cruciate ligament. The patient's knee was then placed into the figure of 4 position and the lateral compartment was entered. There were minimal degenerative changes of the lateral femoral condyle and lateral tibial plateau. There was no evidence of lateral meniscus tearing. The patient's knee was once again brought into extension and the suprapatellar pouch was entered. The arthroscopic shaver and the ArthroCare Wand were used to excise the thickened bands of plica. The undersurface of the patella was then made smooth using the arthroscopic shaver. The articular surface of the trochlear groove was already smooth so no chondroplasty was indicated. The knee joint was irrigated and then drained. All arthroscopic instruments were removed. The 2 portals were closed with 3-0 nylon interrupted suture. The knee joint was injected with Marcaine. Dry sterile dressing and Robby bandages were placed over the patient's knee. The patient was woken and expand the operating room. They were transferred to the recovery room in stable condition.
[2023-04-08] MEDS: cefTRIAXone sodium 1 GM in 0.9 % Sodium Chloride 50 ML IV (13:04)
[2023-04-08] MEDS: oxyCODONE HCl Immed Release 5 MG TABLET PO (13:27)
== END 2023-04-08 14:00 | disposition home or self-care (01) ==
PROVIDERS: PCP Internal Medicine; Visit Provider Orthopaedic Surgery
PROC: (CPT 29870; principal; 2023-04-08 11:00)
DX: S83.241A Other tear of medial meniscus, current injury, right knee, initial encounter (principal); X50.1XXA Overexertion from prolonged static or awkward postures, initial encounter; Y93.9 Activity, unspecified; Y92.9 Unspecified place or not applicable; Y99.8 Other external cause status; M17.11 Unilateral primary osteoarthritis, right knee; M67.51 Plica syndrome, right knee; G47.33 Obstructive sleep apnea (adult) (pediatric); I10 Essential (primary) hypertension; E78.00 Pure hypercholesterolemia, unspecified; E55.9 Vitamin D deficiency, unspecified; E11.65 Type 2 diabetes mellitus with hyperglycemia; E66.01 Morbid (severe) obesity due to excess calories; Z68.41 Body mass index [BMI] 40.0-44.9, adult; Z79.84 Long term (current) use of oral hypoglycemic drugs; Z99.89 Dependence on other enabling machines and devices; Z88.8 Allergy status to other drugs, medicaments and biological substances; Z98.890 Other specified postprocedural states; Z87.891 Personal history of nicotine dependence; Z79.82 Long term (current) use of aspirin
CPT/HCPCS: 29881; 82947; J0131; J0171; J0690; J0696; J1100; J1885; J2405; J2704; J2795; J3010

== ENCOUNTER → 2023-04-08 09:30 | Outpatient (BNV) | payer MEDICARE, SELFPAY | PROVIDERS: PCP Internal Medicine; Visit Provider Orthopaedic Surgery | DX: S83.241A Other tear of medial meniscus, current injury, right knee, initial encounter (principal) | CPT/HCPCS: 29881 ==

== ENCOUNTER 2023-04-25 08:39 | Outpatient (AMB) | payer MEDICARE, SELFPAY ==
--- NOTE | 2023-04-25 08:48 | MHC.OFFVIS ---
Intake Intake Visit Reasons: PO-Rt Knee 04/08/23 Intake Note: Vincent is a 67 year old male who presents today for a post op appointment s/p right knee 04/08/23 Patient reports he is doing better than before, no pain. Allergies mold Allergy (Intermediate, Verified 04/25/23 08:52) HAYFEVER metformin Adverse Reaction (Severe, Verified 04/25/23 08:52) severe fatigue; exhaustion DUST Allergy (Intermediate, Uncoded 01/31/23 13:41) HAYFEVER HPI PO-Rt Knee 04/08/23 HPI Details 67-year-old male who returns to the office today for post-op right knee , 04/08/[address] Francois. He states he has no pain and has improvement in his knee since the last visit. He is doing well overall and has no other concerns today. [facility] Medical History (Updated 03/29/23 @ 12:08 by Brandy Cohen RN) Arthritis Warthin's tumor Vitamin D deficiency Localized swelling, mass and lump, right upper limb Morbid obesity with BMI of 40.0-44.9, adult Obstructive sleep apnea Renal calculi Pure hypercholesterolemia Benign essential hypertension Hx of renal calculi HTN (hypertension) Diabetes Adenomatous colon polyp Surgical History (Updated 04/25/23 @ 09:17 by Sebastián De Jesus) Hx of appendectomy Hx of cystoscopy Hx of cystoscopy H/O lithotripsy Hx of colonoscopy (~03/15/17) History of parotidectomy Family History Father CVD (cardiovascular disease) Mother Cancer Colon cancer Social History Household Members: Spouse Housing: House Are you a primary career technology teacher to a significant other at home: No Do you presently have visiting nurse or other home services: No Alcohol intake: current Alcohol intake frequency: holidays/special occasions only Comment: uses cane as needed with current knee issue Patient Tobacco Use Status: Former Tobacco user Quit Date: age 62 Tobacco use type: Cigarette Years Smoked: 30 e-Cigarette/Vaping Use: Never Used Second Hand Smoke Exposure: No service: No Current occupational status: employed 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 no erythema or drain rom 0-95 degrees Calf supple, nontender. NVI. Results Reviewed Results Reviewed: Date of Service: 04/08/23 Pre-op diagnosis: Right knee medial meniscus tear Post-op diagnosis: same Procedure: Right knee diagnostic arthroscopy with right knee arthroscopic partial medial meniscectomy Implants: none Surgeon: Cas Francois MD Assessment & Plan Assessment & Plan (1) S/P right knee arthroscopy: Code(s): Z98.890 - Other specified postprocedural states Plan Sutures removed today, steri strips applied. He will continue with activities as tolerated. I did explain he should avoid deep bending, kneeling, bending and pivoting motions for the next 6 weeks. I would like to see him back in [address] Francois, sooner if needed. Patient Instructions: Scribed for Chantelle Blood PA-C, by Sebastián De Jesus neuropsychology medical consultant, on 04/2023 at 8:45 AM EST. I, Chantelle Blood PA-C, have personally reviewed and agree with the information entered by the scribe. Coding Level of Care Code Global (41074) Diagnoses S/P right knee arthroscopy Z98.890
== END 2023-04-25 09:08 | disposition home or self-care (01) ==
PROVIDERS: PCP Internal Medicine; Visit Provider Physician Assistant
DX: Z98.890 Other specified postprocedural states (principal)
CPT/HCPCS: 99024

== ENCOUNTER → 2023-04-25 08:39 | Outpatient (BNVA) | payer MEDICARE, OTHER, SELFPAY | PROVIDERS: PCP Internal Medicine; Visit Provider Physician Assistant | DX: Z98.890 Other specified postprocedural states (principal) | CPT/HCPCS: 99212 ==

== ENCOUNTER 2023-05-12 09:50 | Outpatient (AMB) | payer MEDICARE, OTHER, SELFPAY ==
[2023-05-12 09:53] VITALS: BP 118/78; PULSE 98; O2SAT 97; BMI 44.0
--- NOTE | 2023-05-12 09:53 | MHC.PC.OV ---
Vital Signs 05/12/23 09:53 Height 5 ft 5 in Weight 264 lb 8 oz BMI 44.0 BP 118/78 Blood Pressure Location Lt brachial Position Sitting Pulse 98 Pulse Source Pulse Oximeter Pulse Oximetry (%) 97 Oxygen Delivery Method Room Air Intake Visit Reasons: DM, hyperlipidemia, HTN Supervisor Sign Shop Required: No Accompanied by: Self / Same As Patient Allergies mold Allergy (Intermediate, Verified 05/12/23 10:35) HAYFEVER metformin Adverse Reaction (Severe, Verified 05/12/23 10:35) severe fatigue; exhaustion DUST Allergy (Intermediate, Uncoded 05/12/23 10:35) HAYFEVER Medication List - Last Reconciled 05/12/23 by Misha Lynne MD amlodipine 5 mg PO DAILY 90 days aspirin 81 mg PO DAILY atorvastatin 10 mg PO BEDTIME 90 days clotrimazole-betamethasone 1-0.05 % 1 appl topical BID 2 weeks [CPAP DEVICE RESMED full face MASK MEDIUM As directed start 4-16 cm H2O humidified AIR] glipizide ER 5 mg PO QAM 90 days hydrochlorothiazide 25 mg PO DAILY 90 days Januvia (sitagliptin phosphate) 100 mg PO DAILY 90 days NS lisinopril 40 mg PO DAILY 90 days oxycodone-acetaminophen 5-325 mg (Percocet) 1 tab PO Q6H PRN potassium chloride ER 20 mEq PO DAILY 90 days Tobacco use date assessed: 05/12/23 Fall risk assessment: No Falls in past year Last assessed Fall Risk: 05/12/23 Dental Screening Dental Screen Date: 05/12/23 Did you have a dental visit in the last 12 months?: Yes Did you have a dental problem in the last 6 months where you did not have access to dental care?: No Was dental information given to patient?: Patient has dentist HPI DM, hyperlipidemia, HTN HPI Details Patient comes in today for his follow up visit He had right knee arthroscopic surgery with Dr. Francois last month - states that his knee symptoms have improved significantly since his procedure States that he currently feels okay and is ready to get back to being active again now that his knee issues have been taken care of He denies any headaches or dizziness Denies any chest pains, no SOB No nausea/vomiting, no abdominal pain No change in bowel habits noted He had some labs done last month for his preop exam but did not get his other follow up labs done prior to his appt today [facility] Medical History Arthritis Warthin's tumor Vitamin D deficiency Localized swelling, mass and lump, right upper limb Morbid obesity with BMI of 40.0-44.9, adult Obstructive sleep apnea Renal calculi Pure hypercholesterolemia Benign essential hypertension Hx of renal calculi HTN (hypertension) Diabetes Adenomatous colon polyp Surgical History (Updated 05/12/23 @ 10:39 by Misha Lynne MD) S/P right knee arthroscopy (~04/08/23) Hx of appendectomy Hx of cystoscopy Hx of cystoscopy H/O lithotripsy Hx of colonoscopy (~03/15/17) History of parotidectomy Family History Father CVD (cardiovascular disease) Mother Cancer Colon cancer Social History Household Members: Spouse Housing: House Are you a primary memory care program director to a significant other at home: No Do you presently have visiting nurse or other home services: No Alcohol intake: current Alcohol intake frequency: holidays/special occasions only Comment: uses cane as needed with current knee issue Patient Tobacco Use Status: Former Tobacco user Quit Date: age 62 Tobacco use type: Cigarette Years Smoked: 30 e-Cigarette/Vaping Use: Never Used Second Hand Smoke Exposure: No service: No Current occupational status: employed 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 1. Little interest or pleasure in doing things: not at all 2. Feeling down, depressed, or hopeless: not at all 3. Trouble falling or staying asleep, or sleeping too much: not at all 4. Feeling tired or having little energy: not at all 5. Poor appetite or overeating: not at all 6. Feeling bad about yourself - or that you are a failure or have let yourself or your family down: not at all 7. Trouble concentrating on things, such as reading the newspaper or watching television: not at all 8. Moving or speaking so slowly that other people could have noticed. Or the opposite - being so fidgety or restless that you have been moving around a lot more than usual: not at all 9. Thoughts that you would be better off or of hurting yourself in some way: not at all Total score: 0 Depression Screening Interpretation: Negative Depression Screening Done: Yes 10845 - PHQ-9 Billing: Yes Source: Developed by Drs. Jarad Vee, Stephany Nino, Ebenezer Ramirez and colleagues, with an educational dinh from [employer]. Thrive Questionnaire Date Thrive assessed: 05/12/23 I am a: Patient What is your living situation today?: I have a steady place to live Within the past 12 months, did the food you bought not last and you didn't have the money to get more?: Never true Within the past 12 months, did you worry whether your food would run out before you got money to buy more?: Never true Do you have trouble paying for medicines?: No Do you have trouble getting transportation to medical appointments?: No Do you have trouble paying your heating and electricity bill?: No Do you have trouble taking care of your child, family member or friend?: No Do you have trouble with day-to-day activities such as bathing, preparing meals, shopping, managing finances, etc.?: No Are you currently unemployed and looking for a job?: No Are you interested in more education?: No Please select the resources that you would like help with: None Currently or been in a relationship where the following occur: no concerns reported THRIVE Score: 0 AUDIT C Alcohol Use Questionnaire (AUDIT-C) 1. How often do you have a drink containing alcohol?: Monthly or less 2. How many drinks containing alcohol do you have on a typical day when you are drinking?: 1 or 2 3. How often do you have six or more drinks on one occasion?: Never Total Score: 1 Score Reviewed/Action Taken: Yes JASPREET-7 AMB Questionnaire JASPREET-7 Date JASPREET - 7 assessed: 05/12/23 Feeling nervous, anxious, or on edge: 0 = Not at all Not being able to stop or control worryin = Not at all Worrying too much about different things: 0 = Not at all Trouble relaxin = Not at all Being so restless that it is hard to sit still: 0 = Not at all Becoming easily annoyed or irritable: 0 = Not at all Feeling afraid as if something awful might happen: 0 = Not at all Total JASPREET-7 score (0-4 normal; 5-9 mild; 10-14 moderate; 15-21 severe): 0 Source: Developed by Drs. Jarad Vee, Stephany Nino, Ebenezer Ramirez and colleagues, with an educational dinh from [employer]. Review of Systems Const Denies chills, Denies fatigue, Denies fever(s) and Denies headache(s) ENT Denies dysphagia, Denies dizziness, Denies otalgia, Denies headache(s), Denies neck pain, Denies odynophagia and Denies sore throat Card Denies chest pain, Denies palpitations and Denies dyspnea Resp Denies cough and Denies dyspnea GI Denies abdominal pain, Denies constipation, Denies dysphagia, Denies diarrhea, Denies nausea, Denies odynophagia and Denies vomiting Denies dysuria, Denies nocturia and Denies urinary frequency Musc Denies back pain, Denies arthralgias (states that his right knee feels a lot better after his surgery) and Denies neck pain Skin/Breast Denies rash Neuro Denies dizziness and Denies headache(s) Endo Denies fatigue and Denies palpitations Physical exam (Primary Care) Vital Signs: Last Vital Signs Pulse 98 05/12/23 09:53 BP 118/78 05/12/23 09:53 Pulse Ox 97 05/12/23 09:53 Oxygen Delivery Method Room Air 05/12/23 09:53 BMI result Body Mass Index 44.0 Tobacco/Smoking Status: Tobacco use Status Tobacco use date assessed 05/12/23 05/12/23 09:56 Patient Tobacco Use Status Former Tobacco user 05/12/23 09:56 Tobacco use type Cigarette 05/12/23 09:56 e-Cigarette/Vaping Use Never Used 05/12/23 09:56 PHQ-9: PHQ-9 Score PHQ-9: Total score 0 05/12/23 10:15 Depression Screening Interpretation: Negative Thrive Assessment: Date of Thrive Assessment Date Thrive assessed 05/12/23 05/12/23 09:56 Currently or been in a relationship where the following occur: no concerns reported Const General: no acute distress and alert HENMT Ears: TM's normal bilaterally and EAC's normal Throat: Yes posterior oropharynx normal and Yes tonsils normal Neck Neck: Yes no lymphadenopathy and Yes supple Thyroid: Thyroid normal Resp Auscultation: clear to auscultation bilaterally, no rales and no wheezes Cardio Rate: regular rate Rhythm: regular rhythm Heart sounds: no murmurs GI Palpation (GI): Soft to palpation and nontender Auscultation: normal bowel sounds General: Yes no CVA tenderness Back/Spine/Pelvis Back: no CVA tenderness Skin Rashes: no rashes Extrem General: Yes no clubbing, cyanosis or edema Results AMB Hemoglobin A1c AMB Hemoglobin A1c 9.0 % Last Edit by Everett Rao on 05/12/23 10:16 Results Reviewed Results Reviewed: Laboratory Last Values Hgb A1c (Clinic) 9.0 % (4.0-6.0) H 05/12/23 10:15 Laboratory Tests 03/21/23 03/21/23 05/12/23 07:40 07:40 10:15 WBC 9.6 Hgb 16.5 Hct 48.2 Plt Count 304 Sodium 139 Potassium 3.9 Creatinine 1.00 Estimated GFR > 60 Random Glucose 196 H Hgb A1c (Clinic) 9.0 H Calcium 9.3 AST 32 ALT 39 TSH 2.52 Assessment and Plan Assessment & Plan (1) Diabetes mellitus: Code(s): E11.9 - Type 2 diabetes mellitus without complications Qualifiers: Diabetes mellitus type: type 2 Diabetes mellitus prison insulin use: without superintendent container terminal use Diabetes mellitus complication status: with hyperglycemia Qualified Code(s): E11.65 - Type 2 diabetes mellitus with hyperglycemia Plan: In-office HgbA1c done today is at 9.0% (was at 8.7% a few months ago) - goal is < 7.0% Reinforced diabetic diet States that he is still on his [place] diet, which has helped him a lot in the past Continue Glipizide ER 5 mg Q AM and Januvia 100 mg QD for now but again discussed that we may need to make some changes to his medications if he is not able to get his diabetes control back to goal over the next few months (2) Pure hypercholesterolemia: Code(s): E78.00 - Pure hypercholesterolemia, unspecified Plan: He again was not able to get his follow up labs done prior to his appointment today; states that he had some labs done last month and mistakenly assumed that they were sufficient for his visit today - advised that he has not had his fasting lipids rechecked since August 2022 Reinforced low cholesterol diet Continue [place]-3 capsules 340 mg QD and Atorvastatin 10 mg QD Will recheck his labs and fasting lipids in 4 months for follow up - lab orders are updated and again printed out and handed to patient to help remind him to get these done in a few months BEFORE his next appointment (3) Benign essential hypertension: Code(s): I10 - Essential (primary) hypertension Plan: Reinforced low sodium diet - goal is systolic BP of at least 130 to 140 mm or less Continue Lisinopril 40 mg QD, HCTZ 25 mg QD in AM and Amlodipine 5 mg QD (4) Obstructive sleep apnea: Comment: uses CPAP nightly Code(s): G47.33 - Obstructive sleep apnea (adult) (pediatric) Plan: Patient continues to use his CPAP device regularly/daily when sleeping at night - states that it is helping a lot (5) Vitamin D deficiency: Code(s): E55.9 - Vitamin D deficiency, unspecified Plan: Continue Vitamin D3 2000 units QD Will recheck his Vitamin D level in 4 months for follow up (6) Renal calculi: Code(s): N20.0 - Calculus of kidney Plan: Composition of his stones in the past were mostly calcium oxalate He has been asymptomatic lately; is encouraged to continue to increase his oral fluid intake Just had a repeat renal US done a few days ago that revealed (+) bilateral nonobstructing renal stones measuring up to 7 mm on the right and 2 mm on the left with some new from prior. Left renal pelviectasis without rudi hydronephrosis Follow up with urology (Dr. Mckenzie) as scheduled (7) Morbid obesity with BMI of 40.0-44.9, adult: Code(s): E66.01 - Morbid (severe) obesity due to excess calories; Z68.41 - Body mass index [BMI] 40.0-44.9, adult Plan: Reinforced diet/exercise as tolerated/lose weight Plan Follow up in 4 months Orders: Orders AMB Hemoglobin A1c Today Z13.9 - Encounter for screening, unspecified Coding Level of Care Code Est Pt Level 4 (83024) Diagnoses Type 2 diabetes mellitus with hyperglycemia, without long-term current use of insulin E11.65 Diabetes mellitus type: type 2 Diabetes mellitus prison insulin use: without prison use Diabetes mellitus complication status: with hyperglycemia Pure hypercholesterolemia E78.00 Benign essential hypertension I10 Obstructive sleep apnea G47.33 Vitamin D deficiency E55.9 Renal calculi N20.0 Morbid obesity with BMI of 40.0-44.9, adult E66.01; Z68.41
== END 2023-05-12 10:49 | disposition home or self-care (01) ==
PROVIDERS: PCP Internal Medicine; Visit Provider Internal Medicine
DX: E11.65 Type 2 diabetes mellitus with hyperglycemia (principal); E66.01 Morbid (severe) obesity due to excess calories; Z68.41 Body mass index [BMI] 40.0-44.9, adult; E78.00 Pure hypercholesterolemia, unspecified; I10 Essential (primary) hypertension; G47.33 Obstructive sleep apnea (adult) (pediatric); E55.9 Vitamin D deficiency, unspecified; N20.0 Calculus of kidney
CPT/HCPCS: 83036; 99214

== ENCOUNTER 2023-05-24 09:11 | Outpatient (AMB) | payer MEDICARE, SELFPAY ==
[2023-05-24 09:14] VITALS: BMI 43.9
--- NOTE | 2023-05-24 09:14 | MHC.OFFVIS ---
Intake Vital Signs 05/24/23 09:14 Height 5 ft 5 in Weight 264 lb BMI 43.9 Intake Visit Reasons: PO-Rt Knee 04/08/23 Intake Note: Vincent is a 67 year old male who presents for his post operative appointment S/P Right knee on 04/08/2023 Patient reports he is doing well and has no concerns. He denies any fevers or chills. He denies any locking or giving way. Allergies mold Allergy (Intermediate, Verified 05/24/23 09:22) HAYFEVER metformin Adverse Reaction (Severe, Verified 05/24/23 09:22) severe fatigue; exhaustion DUST Allergy (Intermediate, Uncoded 05/12/23 10:35) HAYFEVER Medication List - Last Reconciled 05/24/23 by Cas Francois MD amlodipine 5 mg PO DAILY 90 days aspirin 81 mg PO DAILY atorvastatin 10 mg PO BEDTIME 90 days clotrimazole-betamethasone 1-0.05 % 1 appl topical BID 2 weeks [CPAP DEVICE RESMED full face MASK MEDIUM As directed start 4-16 cm H2O humidified AIR] glipizide ER 5 mg PO QAM 90 days hydrochlorothiazide 25 mg PO DAILY 90 days Januvia (sitagliptin phosphate) 100 mg PO DAILY 90 days NS lisinopril 40 mg PO DAILY 90 days oxycodone-acetaminophen 5-325 mg (Percocet) 1 tab PO Q6H PRN potassium chloride ER 20 mEq PO DAILY 90 days PFSH Medical History Arthritis Warthin's tumor Vitamin D deficiency Localized swelling, mass and lump, right upper limb Morbid obesity with BMI of 40.0-44.9, adult Obstructive sleep apnea Renal calculi Pure hypercholesterolemia Benign essential hypertension Hx of renal calculi HTN (hypertension) Diabetes Adenomatous colon polyp Surgical History S/P right knee arthroscopy (~04/08/23) Hx of appendectomy Hx of cystoscopy Hx of cystoscopy H/O lithotripsy Hx of colonoscopy (~03/15/17) History of parotidectomy Family History Father CVD (cardiovascular disease) Mother Cancer Colon cancer Social History Household Members: Spouse Housing: House Are you a primary critical care transport nurse to a significant other at home: No Do you presently have visiting nurse or other home services: No Alcohol intake: current Alcohol intake frequency: holidays/special occasions only Comment: uses cane as needed with current knee issue Patient Tobacco Use Status: Former Tobacco user Quit Date: age 62 Tobacco use type: Cigarette Years Smoked: 30 e-Cigarette/Vaping Use: Never Used Second Hand Smoke Exposure: No service: No Current occupational status: employed Current occupation: [employer] Cognitive needs: No Hearing needs: No Vision needs: No Physical Exam Vital Signs: BMI result Body Mass Index 43.9 Const Other: Well-nourished well-developed very friendly male awake alert and oriented x3 in no acute distress Extrem Other: Right knee examination shows that the surgical incisions are well healed, no erythema, minimal discomfort with range of motion, minimal crepitus with range of motion, no instability Assessment & Plan Assessment & Plan (1) Right knee pain: Code(s): M25.561 - Pain in right knee Qualifiers: Chronicity: unspecified Qualified Code(s): M25.561 - Pain in right knee Plan Mr. Palmer continues to do well after undergoing right knee arthroscopic surgery on 04/08/2023. He will continue with his home exercise program. Does know to take antibiotics before any dental work. He will follow up with me on an as-needed basis should his symptoms worsen in any way. Feel free to call me at any time should questions regarding his orthopedic management arise. Coding Level of Care Code Global (15957) Diagnoses Right knee pain, unspecified chronicity M25.561 Chronicity: unspecified
== END 2023-05-24 09:45 | disposition home or self-care (01) ==
PROVIDERS: PCP Internal Medicine; Visit Provider Orthopaedic Surgery
DX: M25.561 Pain in right knee (principal)
CPT/HCPCS: 99024

== ENCOUNTER → 2023-05-24 09:11 | Outpatient (BNVA) | payer MEDICARE, OTHER, SELFPAY | PROVIDERS: PCP Internal Medicine; Visit Provider Orthopaedic Surgery | DX: Z47.89 Encounter for other orthopedic aftercare (principal); M25.561 Pain in right knee | CPT/HCPCS: 99212 ==

== ENCOUNTER 2023-06-22 07:52 | Outpatient (REF) | payer MEDICARE, OTHER, SELFPAY ==
--- NOTE | ~2023-06-22 | US_ITS ---
EXAMINATION: US RETROPERITONEAL LIMITED (RENAL ONLY) CLINICAL INFORMATION: Calculus of kidney. COMPARISON: Renal ultrasound 01/06/2023 TECHNIQUE: Real-time imaging of the kidneys. FINDINGS: RIGHT KIDNEY: 12.6 x 6.1 x 6.1 cm (SAG x AP x TRV). The kidney is normal in size, contour, and echogenicity. Renal cortical thickness is normal. No hydronephrosis. Benign-appearing renal cysts measuring up to 0.7 cm. No follow-up imaging is recommended. 4 nonobstructing stones increased in number, previously 2, from prior measuring up to 7 mm, previously 7 mm. LEFT KIDNEY: 12.3 x 6.0 x 4.6 cm (SAG x AP x TRV). The kidney is normal in size, contour, and echogenicity. Renal cortical thickness is normal. No focal parenchymal lesions or hydronephrosis. 2 mm nonobstructing left midpole renal stone from prior and punctate nonobstructing lower pole renal stone similar to prior. US/US renal BI IMPRESSION: Bilateral nonobstructing stones increased in number with respect to prior measuring up to 7 mm in the right lower pole.
== END 2023-06-22 07:53 | disposition home or self-care (01) ==
LOC: HO.US 07:52
PROVIDERS: PCP Internal Medicine; Visit Provider Urology
DX: N20.0 Calculus of kidney (principal)
CPT/HCPCS: 76775

== ENCOUNTER 2023-07-07 09:40 | Outpatient (AMB) | payer MEDICARE, OTHER, SELFPAY ==
--- NOTE | 2023-07-07 09:51 | MHC.OFFVIS ---
Intake Visit Reasons: 6m follow up/US/PSA Intake Note: Patient presents today for a follow-up on PSA Meds- None Allergies to Antibiotic- No Known Allergies Blood Thinner- Aspirin Post Void Residual: 0ml Patient Symptoms: None Literacy Education Professor Required: No Accompanied by: Self / Same As Patient Allergies mold Allergy (Intermediate, Verified 07/07/23 10:04) HAYFEVER metformin Adverse Reaction (Severe, Verified 07/07/23 10:04) severe fatigue; exhaustion DUST Allergy (Intermediate, Uncoded 07/07/23 10:04) HAYFEVER HPI Comments Details: Mr Palmer is a very pleasant male. He is a patient of Dr Lynne. He is seen for the following urologic conditions. - nephrolithiasis Renal ultrasound Three small stones on right side 6 mm Would intervene with ureteroscopy if symptomatic Recently started podcast and YouTube channel Six-month follow-up with imaging Nephrolithiasis/Urolithiasis:? No imaging done recently Will plan on repeating in 6 months Should remain on potassium citrate Concomitant diagnosis includes diabetes ? They are here for?further evaluation of nephrolithiasis ?- stone staying stable ? Urolithiasis was diagnosed?10/2015.? The patient previously had kidney stones whose composition w?calcium oxalate - monohydrate, calcium phosphate - brushite ?06/07 CaOxMono 75%.? Laboratory investigations include?pending.? 24 Hour urine evaluation?01/31 - Low Urine volume < 2.0 liters, Hypercalciuria (> 200mg), High oxalate > 30mg ?09/01 , Good Volume > 2.00 L, High Sodium (> 100mEq), High oxalate > 30mg, Hypercalciuria (> 200mg) ?07/03 , Good Volume > 2.00 L, Hypercalciuria (> 200mg), High Sodium (> 100mEq), High oxalate > 30mg, High Citrate ?02/02 , Good Volume > 2.00 L, High Citrate, High oxalate > 30mg, High Sodium (> 100mEq), Hypercalciuria (> 200mg ?08/04 , Good Volume > 2.00 L, Hypercalciuria (> 200mg) 282 ?09/04 good volume, high oxalate high sodium ? Prior treatment(s) include?01/31 , right, ureteroscopy ?09/01 , medical management, with allopurinol, , with thiazides ?07/03 indapamide, sildenafil ?06/07 [facility] right side ? Prior imaging includes?a CT (computed tomography) scan of the abdomen/pelvis (stone protocol) multiple right renal stones. Largest is 9 x 21 mm. Smaller right lower pole renal stones largest is 4 x 5 mm. Mild right hydronephrosis. No stone seen in the ureter. Left kidney no stone seen. ?02/01 - , a renal ultrasound - residual 5mm fragments ?07/03 , a renal ultrasound, showing radiodense stone(s), bilaterally ?08/03 , a CT (computed tomography) scan of the abdomen/pelvis (stone protocol), showing radiodense stone(s) small bilateral ?02/02 , a renal ultrasound right 5mm x3, left punctate ?08/04 , a renal ultrasound right 5mm x 3, left small ?02/03 , a renal ultrasound right multiple stones ?08/05 , a renal ultrasound, 4 mm right, nothing left - 04/06 renal ultrasound no stones seen - 01/07 renal ultrasound 4 mm right, no stone on left - 07/09 renal ultrasound 7 mm stone side ? UA today shows?specific gravity within normal range suggestive of adequate hydration today.? Current therapeutic plan will be?indapamide 2.5, keep up fluids.? Risk, benefits and alternatives to therapy were discussed regarding the use and timing of prescribed medications. Pertinent side effects and interactions for medications were highlighted and adherence emphasized. [facility] Medical History Arthritis Warthin's tumor Vitamin D deficiency Localized swelling, mass and lump, right upper limb Morbid obesity with BMI of 40.0-44.9, adult Obstructive sleep apnea Renal calculi Pure hypercholesterolemia Benign essential hypertension Hx of renal calculi HTN (hypertension) Diabetes Adenomatous colon polyp Surgical History S/P right knee arthroscopy (~04/08/23) Hx of appendectomy Hx of cystoscopy Hx of cystoscopy H/O lithotripsy Hx of colonoscopy (~03/15/17) History of parotidectomy Family History Father CVD (cardiovascular disease) Mother Cancer Colon cancer Social History Household Members: Spouse Housing: House Are you a primary attending ambulatory care to a significant other at home: No Do you presently have visiting nurse or other home services: No Alcohol intake: current Alcohol intake frequency: holidays/special occasions only Comment: uses cane as needed with current knee issue Patient Tobacco Use Status: Former Tobacco user Quit Date: age 62 Tobacco use type: Cigarette Years Smoked: 30 e-Cigarette/Vaping Use: Never Used Second Hand Smoke Exposure: No service: No Current occupational status: employed Current occupation: [employer] Cognitive needs: No Hearing needs: No Vision needs: No Review of Systems Const All systems reviewed & are unremarkable except as noted in HPI and below Reports no additional complaints Resp Reports no additional complaints GI Reports no additional complaints Reports as per HPI Musc Reports no additional complaints Physical Exam Telemedicine evaluation Appropriate responses Regular breathing rate and rhythm HEENT Head: Yes normal to inspection Ears: hearing grossly normal bilaterally Eyes General: appearance normal, both eyes and all related structures Neck Neck: Yes normal visual inspection Chest Chest palpation & inspection: normal inspection of the chest Resp Effort & Inspection: normal respiratory effort and able to speak in complete sentences Telehealth Telehealth Location of provider rendering services: practice address Location of patient: address on file Patient Identification confirmed using: Name, : Yes Telehealth method: voice only Patient verbally consented to treatment: Yes Patient verbally consented to billing insurance company: Yes Patient informed of any privacy concerns related to visit: Yes Assessment & Plan Assessment & Plan (1) Renal calculi: Code(s): N20.0 - Calculus of kidney Category: Medical Plan Six-month follow-up Orders: Orders AMB Post Void Residual by ultrasound 07/07/23 R33.9 - Retention of urine, unspecified US renal BI 6 Months N20.0 - Calculus of kidney Patient Instructions: Imaging studies, laboratory and physical exam results were discussed and reviewed in detail. No major barriers to patient understanding were identified. An opportunity to ask questions regarding the treatment plan was provided. All questions were answered. The patient expressed understanding and agreement with the above treatment plan. The patient is aware they should contact our office by phone for worsening of their current condition or the appearance of new urologic symptoms. Compliance is encouraged with any medications and followup testing that is ordered. It is a privilege to participate in the urologic care of your patient. If you have any questions or concerns regarding treatment for the above conditions, or other urologic issues, please do not hesitate to contact me. The office telephone contact is [phone]. This note is constructed using voice recognition software. While every effort has been made to ensure accuracy high voltage electrician errors may have been included. Yours sincerely, Dr Magdi Mckenzie MD, [facility] - Urology Providers of Expert, Compassionate Care for the Genitourinary System
== END 2023-07-07 10:53 | disposition home or self-care (01) ==
PROVIDERS: PCP Internal Medicine; Visit Provider Urology
DX: N20.0 Calculus of kidney (principal)
CPT/HCPCS: 99213

== ENCOUNTER → 2023-07-07 09:40 | Outpatient (BNVA) | payer MEDICARE, OTHER, SELFPAY | PROVIDERS: PCP Internal Medicine; Visit Provider Urology | DX: N20.0 Calculus of kidney (principal) | CPT/HCPCS: 99212 ==

== ENCOUNTER → 2023-07-12 12:45 | Outpatient (BNVA) | payer SELFPAY | PROVIDERS: PCP Internal Medicine; Visit Provider Physician Assistant Medical | DX: Z02.79 Encounter for issue of other medical certificate (principal) ==

== ENCOUNTER 2023-09-05 06:22 | Outpatient (REF) | payer MEDICARE, OTHER, SELFPAY ==
[2023-09-05 06:42] LABS: MANUAL DIFF FLAG NO
[2023-09-05 07:43] LABS: Basophils Absolute Auto 0.1 X10*3/uL (0.0-0.2); Basophils Percent Auto 1.5 % (0-2); Eosinophils Absolute Auto 0.4 X10*3/uL (0.0-0.4); Eosinophils Percent Auto 6.6 % (0-4); Hematocrit 46.2 % (42.0-52.0); Imm Gran Abs Auto 0.04 X10*3/uL (0.00-0.03); Imm Gran Pct Auto 0.7 % (0.0-0.4); Lymphocytes Absolute Auto 2.2 X10*3/uL (1.2-4.9); Lymphocytes Percent Auto 36.9 % (20-40); Mean Corpuscular HGB Conc 34.6 g/dl (31.0-36.0); Mean Corpuscular Hemoglobin 29.9 pg (27.0-33.0); Mean Corpuscular Volume 86.2 fL (80.0-98.0); Mean Platelet Volume 10.3 fL (9.4-12.4); Monocytes Percent Auto 16.2 % (2-11); Neutrophils Absolute Auto 2.3 x10*3/uL (2.0-8.3); Neutrophils Percent Auto 38.1 % (45-73); Platelet Count 267 X10*3/uL (160-400); Red Blood Count 5.36 X10*6/uL (4.60-5.80); Red Cell Distribution Width 12.8 % (11.0-16.0); White Blood Count 5.9 X10*3/uL (4.8-10.8)
[2023-09-05 07:51] LABS: Estimated Average Glucose 177 mg/dL; Hemoglobin A1c % 7.8 % (<6.0); Total Hemoglobin (HGBA1C) 3719.3815 umol/L
[2023-09-05 08:16] LABS: Creatinine Urine 352.16 mg/dL
[2023-09-05 08:29] LABS: Alanine Aminotransferase 39 U/L (0-40); Albumin Level 3.9 g/dL (3.5-5.0); Alkaline Phosphatase 85 U/L (39-117); Anion Gap 18 (12-20); Aspartate Amino Transferase 26 U/L (5-37); Bilirubin Total 0.3 mg/dL (0.0-1.0); Blood Urea Nitrogen 15 mg/dL (9-16); Carbon Dioxide 24 mmol/L (22-29); Chloride 103 mmol/L (96-108); Cholesterol 123 mg/dL (<200); Estimated Glomerular Filt Rate > 60; Glucose Fasting 193 mg/dL (60-99); HDL Cholesterol 31 mg/dL (>40); LDL Cholesterol Calculated 66 mg/dL (<100); Potassium 3.5 mmol/L (3.3-5.1); Sodium 141 mmol/L (135-145); Total Protein 6.9 g/dL (6.5-8.0); Triglycerides 133 mg/dL (<150)
[2023-09-05 08:33] LABS: TSH reflex Free T4 2.14 uIU/mL (0.32-4.0); Vitamin D 25-OH Total 37.2 ng/mL (>30)
[2023-09-05 08:34] LABS: Appearance Urine Cloudy; Color Urine Dark Yellow; Glucose Urine UA Negative (Negative); Leukocyte Esterase Urine Negative (Negative); Nitrite Urine Negative (Negative); Specific Gravity - Urine >= 1.030 (1.005-1.025); Urine Blood Negative (Negative); Urine Ketones Trace mg/dL (Negative); Urine Protein Negative (Neg-Trace)
[2023-09-05 08:35] LABS: Prostate Specific Antigen 1.24 ng/mL (<0.05-4.0)
[2023-09-05 08:48] LABS: Folate 5.9 ng/mL (> or = 4.0); Vitamin B12 643 pg/mL (200-900)
== END 2023-09-05 06:23 | disposition home or self-care (01) ==
LOC: HO.LAB 06:22
PROVIDERS: Urology; PCP Internal Medicine; Visit Provider Internal Medicine
DX: I10 Essential (primary) hypertension (principal); E78.00 Pure hypercholesterolemia, unspecified; E11.9 Type 2 diabetes mellitus without complications; R30.0 Dysuria; E55.9 Vitamin D deficiency, unspecified; N20.0 Calculus of kidney; E53.8 Deficiency of other specified B group vitamins; Z12.5 Encounter for screening for malignant neoplasm of prostate
CPT/HCPCS: 36415; 80053; 80061; 81003; 82043; 82306; 82570; 82607; 82746; 83036; 84153; 84443; 85025

== ENCOUNTER 2023-09-20 08:45 | Outpatient (AMB) | payer MEDICARE, OTHER, SELFPAY ==
[2023-09-20 08:46] VITALS: BP 110/76; PULSE 100; O2SAT 97; BMI 43.6
--- NOTE | 2023-09-20 08:46 | MHC.PC.OV ---
Vital Signs 09/20/23 08:46 Height 5 ft 5 in Weight 262 lb BMI 43.6 BP 110/76 Blood Pressure Location Lt brachial Position Sitting Pulse 100 Pulse Source Pulse Oximeter Pulse Oximetry (%) 97 Oxygen Delivery Method Room Air Intake Visit Reasons: DM, hyperlipidemia, HTN, OA Bottle Feeder: Not Required per policy Allergies mold Allergy (Intermediate, Verified 09/20/23 11:19) HAYFEVER metformin Adverse Reaction (Severe, Verified 09/20/23 11:19) severe fatigue; exhaustion DUST Allergy (Intermediate, Uncoded 09/20/23 11:19) HAYFEVER Medication List - Last Reconciled 09/20/23 by Misha Lynne MD amlodipine 5 mg PO DAILY 90 days aspirin 81 mg PO DAILY atorvastatin 10 mg PO BEDTIME 90 days clotrimazole-betamethasone 1-0.05 % 1 appl topical BID 2 weeks [CPAP DEVICE RESMED full face MASK MEDIUM As directed start 4-16 cm H2O humidified AIR] glipizide ER 5 mg PO QAM 90 days hydrochlorothiazide 25 mg PO DAILY 90 days Januvia (sitagliptin phosphate) 100 mg PO DAILY 90 days NS lisinopril 40 mg PO DAILY 90 days oxycodone-acetaminophen 5-325 mg (Percocet) 1 tab PO Q6H PRN potassium chloride ER 20 mEq PO DAILY 90 days Tobacco use date assessed: 05/12/23 Fall risk assessment: No Falls in past year Last assessed Fall Risk: 09/20/23 Dental Screening Dental Screen Date: 05/12/23 HPI DM, hyperlipidemia, HTN, OA HPI Details Patient comes in today for his follow up visit States that he feels okay He denies any headaches or dizziness Denies any chest pains, no SOB No nausea/vomiting, no abdominal pain No change in bowel habits noted Had his follow up labs done a couple of weeks ago - to discuss his results [facility] Medical History Arthritis Warthin's tumor Vitamin D deficiency Localized swelling, mass and lump, right upper limb Morbid obesity with BMI of 40.0-44.9, adult Obstructive sleep apnea Renal calculi Pure hypercholesterolemia Benign essential hypertension Hx of renal calculi HTN (hypertension) Diabetes Adenomatous colon polyp Surgical History S/P right knee arthroscopy (~04/08/23) Hx of appendectomy Hx of cystoscopy Hx of cystoscopy H/O lithotripsy Hx of colonoscopy (~03/15/17) History of parotidectomy Family History Father CVD (cardiovascular disease) Mother Cancer Colon cancer Social History Household Members: Spouse Housing: House Are you a primary college and career counselor to a significant other at home: No Do you presently have visiting nurse or other home services: No Alcohol intake: current Alcohol intake frequency: holidays/special occasions only Comment: uses cane as needed with current knee issue Patient Tobacco Use Status: Former Tobacco user Tobacco use type: Cigarette Years Smoked: 30 e-Cigarette/Vaping Use: Never Used Second Hand Smoke Exposure: No service: No Current occupational status: employed 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 Jarad Vee, Stephany Nino, Ebenezer Ramirez and colleagues, with an educational dinh from [employer]. Review of Systems Const Denies chills, Denies fatigue, Denies fever(s) and Denies headache(s) ENT Denies dysphagia, Denies dizziness, Denies otalgia, Denies headache(s), Denies neck pain, Denies odynophagia and Denies sore throat Card Denies chest pain, Denies palpitations and Denies dyspnea Resp Denies cough and Denies dyspnea GI Denies abdominal pain, Denies constipation, Denies dysphagia, Denies diarrhea, Denies nausea, Denies odynophagia and Denies vomiting Denies dysuria, Denies nocturia and Denies urinary frequency Musc Denies back pain, Denies arthralgias (right knee symptoms have improved a lot with surgery) and Denies neck pain Skin/Breast Denies rash Neuro Denies dizziness and Denies headache(s) Endo Denies fatigue and Denies palpitations Physical exam (Primary Care) Vital Signs: Last Vital Signs Pulse 100 09/20/23 08:46 BP 110/76 09/20/23 08:46 Pulse Ox 97 09/20/23 08:46 Oxygen Delivery Method Room Air 09/20/23 08:46 BMI result Body Mass Index 43.6 Tobacco/Smoking Status: Tobacco use Status Tobacco use date assessed 05/12/23 09/20/23 08:48 Patient Tobacco Use Status Former Tobacco user 09/20/23 08:48 Tobacco use type Cigarette 09/20/23 08:48 e-Cigarette/Vaping Use Never Used 09/20/23 08:48 Thrive Assessment: Date of Thrive Assessment Date Thrive assessed 05/12/23 09/20/23 08:48 Const General: no acute distress and alert HENMT Ears: TM's normal bilaterally and EAC's normal Throat: Yes posterior oropharynx normal and Yes tonsils normal Neck Neck: Yes no lymphadenopathy and Yes supple Thyroid: Thyroid normal Resp Auscultation: clear to auscultation bilaterally, no rales and no wheezes Cardio Rate: regular rate Rhythm: regular rhythm Heart sounds: no murmurs GI Palpation (GI): Soft to palpation and nontender Auscultation: normal bowel sounds General: Yes no CVA tenderness Back/Spine/Pelvis Back: no CVA tenderness Skin Rashes: no rashes Extrem General: Yes no clubbing, cyanosis or edema Results Reviewed Results Reviewed: Laboratory Tests 09/05/23 09/05/23 06:40 07:23 WBC 5.9 Hgb 16.0 Hct 46.2 Plt Count 267 Sodium 141 Potassium 3.5 Creatinine 1.02 Estimated GFR > 60 Fasting Glucose 193 H Hemoglobin A1c % 7.8 H Calcium 9.0 AST 26 ALT 39 Triglycerides 133 Cholesterol 123 LDL Cholesterol, Calc 66 HDL Cholesterol 31 L Prostate Specific Ag 1.24 Vitamin B12 643 25-OH Vitamin D Total 37.2 TSH 2.14 Ur Specific [place] >= 1.030 H Urine Protein Negative Urine Glucose (UA) Negative Urine Blood Negative Urine Nitrite Negative Ur Leukocyte Esterase Negative Microalb/Creat Ratio 7.0 Assessment and Plan Assessment & Plan (1) Diabetes mellitus: Code(s): E11.9 - Type 2 diabetes mellitus without complications Qualifiers: Diabetes mellitus complication status: with hyperglycemia 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 insulin use: without fpc use Diabetes mellitus type: type 2 Qualified Code(s): E11.65 - Type 2 diabetes mellitus with hyperglycemia Plan: His HgbA1c has improved to 7.8% on his labs done a couple of weeks ago (in-office HgbA1c was at 9.0% a few months ago) - goal is < 7.0% Reinforced diabetic diet - he is still on his Tov[place] diet, which has helped him a lot Continue Glipizide ER 5 mg Q AM and Januvia 100 mg QD (2) Pure hypercholesterolemia: Code(s): E78.00 - Pure hypercholesterolemia, unspecified Plan: Results of his labs done a couple of weeks ago reviewed and discussed with patient Reinforced low cholesterol diet Continue Hostetter-3 capsules 340 mg QD and Atorvastatin 10 mg QD Will recheck his labs and fasting lipids in 4 months for follow up (3) Benign essential hypertension: Code(s): I10 - Essential (primary) hypertension Plan: Reinforced low sodium diet - goal is systolic BP of at least 130 to 140 mm or less Continue Lisinopril 40 mg QD, HCTZ 25 mg QD in AM and Amlodipine 5 mg QD (4) Obstructive sleep apnea: Comment: uses CPAP nightly Code(s): G47.33 - Obstructive sleep apnea (adult) (pediatric) Plan: Patient continues to use his CPAP device regularly/daily when sleeping at night - feels that it is helping him a lot (5) Vitamin D deficiency: Code(s): E55.9 - Vitamin D deficiency, unspecified Plan: Continue Vitamin D3 2000 units QD Will recheck his Vitamin D level in 4 months for follow up (6) Renal calculi: Code(s): N20.0 - Calculus of kidney Plan: Composition of his stones in the past were mostly calcium oxalate He has been asymptomatic lately; is again encouraged to continue to increase his oral fluid intake He had a repeat renal US done a few months ago that revealed (+) bilateral nonobstructing renal stones measuring up to 7 mm on the right and 2 mm on the left with some new from prior. Left renal pelviectasis without rudi hydronephrosis Follow up with urology (Dr. Mckenzie) as scheduled (7) Morbid obesity with BMI of 40.0-44.9, adult: Code(s): E66.01 - Morbid (severe) obesity due to excess calories; Z68.41 - Body mass index [BMI] 40.0-44.9, adult Plan: Reinforced diet/exercise as tolerated/lose weight Plan Follow up in 4 months Orders: Orders Microalbumin, Random (w Creat) 4 Months E11.9 - Type 2 diabetes mellitus without complications Complete Blood Count Auto Diff 4 Months D64.9 - Anemia, unspecified Hemoglobin A1c 4 Months E11.9 - Type 2 diabetes mellitus without complications Lipid Panel 4 Months E78.00 - Pure hypercholesterolemia, unspecified Comprehensive Prosperity. 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
== END 2023-09-20 09:45 | disposition home or self-care (01) ==
PROVIDERS: PCP Internal Medicine; Visit Provider Internal Medicine
DX: E11.65 Type 2 diabetes mellitus with hyperglycemia (principal); E66.01 Morbid (severe) obesity due to excess calories; Z68.41 Body mass index [BMI] 40.0-44.9, adult; E78.00 Pure hypercholesterolemia, unspecified; I10 Essential (primary) hypertension; G47.33 Obstructive sleep apnea (adult) (pediatric); E55.9 Vitamin D deficiency, unspecified; N20.0 Calculus of kidney
CPT/HCPCS: 99214; G2211

== ENCOUNTER 2023-12-29 06:42 | Outpatient (REF) | payer MEDICARE, OTHER, SELFPAY ==
--- NOTE | ~2023-12-29 | US_ITS ---
EXAMINATION: US RETROPERITONEAL LIMITED (RENAL ONLY) CLINICAL INFORMATION: Calculus of kidney. COMPARISON: Renal ultrasound 06/22/2023 TECHNIQUE: Real-time imaging of the kidneys. FINDINGS: RIGHT KIDNEY: 11.7 x 5.7 x 5.8 cm (SAG x AP x TRV). The kidney is normal in size, contour, and echogenicity. Renal cortical thickness is normal. No hydronephrosis. Subcentimeter benign-appearing renal cyst, no follow-up imaging recommended. 5 mm nonobstructing upper pole renal stone, previously 4 mm, 5 mm nonobstructing mid pole renal stone previously 4 mm, 8 mm nonobstructing lower pole renal stone, previously 7 mm, 5 mm nonobstructing upper pole renal stone not previously seen. A fourth previously seen lower pole renal stone was not identified on today's exam. LEFT KIDNEY: 12.5 x 6.0 x 4.1 cm (SAG x AP x TRV). The kidney is normal in size, contour, and echogenicity. Renal cortical thickness is normal. No hydronephrosis. Likely benign renal cyst measuring 1.1 cm. No follow up imaging is recommended. 4 mm nonobstructing upper pole renal stone new from prior and 3 mm nonobstructing lower pole renal stone, previously 2 mm. US/US renal BI IMPRESSION: Bilateral nonobstructing stones measuring up to 8 mm on the right, as detailed above.. Electronically signed by: Kacy Villafana MD 01/09/2024 05:36 PM EDT
[2023-12-29 06:56] LABS: MANUAL DIFF FLAG NO
[2023-12-29 07:21] LABS: Basophils Percent Auto 0.7 % (0-2); Eosinophils Absolute Auto 0.4 X10*3/uL (0.0-0.4); Eosinophils Percent Auto 6.6 % (0-4); Hematocrit 45.5 % (42.0-52.0); Hemoglobin 15.9 g/dl (14.0-18.0); Imm Gran Abs Auto 0.06 X10*3/uL (0.00-0.03); Lymphocytes Percent Auto 34.4 % (20-40); Mean Corpuscular HGB Conc 34.9 g/dl (31.0-36.0); Mean Corpuscular Hemoglobin 29.8 pg (27.0-33.0); Mean Corpuscular Volume 85.2 fL (80.0-98.0); Mean Platelet Volume 9.9 fL (9.4-12.4); Monocytes Absolute Auto 0.8 X10*3/uL (0.1-1.2); Monocytes Percent Auto 14.3 % (2-11); Neutrophils Absolute Auto 2.5 x10*3/uL (2.0-8.3); Platelet Count 271 X10*3/uL (160-400); Red Blood Count 5.34 X10*6/uL (4.60-5.80); Red Cell Distribution Width 12.6 % (11.0-16.0); White Blood Count 5.9 X10*3/uL (4.8-10.8)
[2023-12-29 07:31] LABS: Estimated Average Glucose 171 mg/dL; Hemoglobin A1c % 7.6 % (<6.0)
[2023-12-29 08:02] LABS: Alanine Aminotransferase 43 U/L (0-40); Albumin Level 3.9 g/dL (3.5-5.0); Alkaline Phosphatase 91 U/L (39-117); Anion Gap 14 (12-20); Aspartate Amino Transferase 33 U/L (5-37); Bilirubin Total 0.5 mg/dL (0.0-1.0); Blood Urea Nitrogen 14 mg/dL (9-16); Calcium 9.4 mg/dL (8.4-10.2); Carbon Dioxide 26 mmol/L (22-29); Chloride 103 mmol/L (96-108); Cholesterol 122 mg/dL (<200); Estimated Glomerular Filt Rate > 60; Glucose Fasting 192 mg/dL (60-99); HDL Cholesterol 29 mg/dL (>40); LDL Cholesterol Calculated 58 mg/dL (<100); Potassium 3.8 mmol/L (3.3-5.1); Sodium 139 mmol/L (135-145); Total Protein 6.9 g/dL (6.5-8.0); Triglycerides 176 mg/dL (<150)
[2023-12-29 08:12] LABS: Vitamin D 25-OH Total 32.8 ng/mL (>30)
[2023-12-29 09:23] LABS: Appearance Urine Clear; Color Urine Dark Yellow; Glucose Urine UA Negative (Negative); Leukocyte Esterase Urine Negative (Negative); Nitrite Urine Negative (Negative); Specific Gravity - Urine 1.025 (1.005-1.025); Urine Blood Negative (Negative); Urine Ketones Negative (Negative); Urine Protein Negative (Neg-Trace)
[2023-12-29 10:51] LABS: Creatinine Urine 264.06 mg/dL; Microalbum/Creatinine Ratio Ur 6.4 ug/mg cr (<30)
== END 2023-12-29 06:43 | disposition home or self-care (01) ==
LOC: HO.US 06:42
PROVIDERS: Absent Provider Internal Medicine; PCP Internal Medicine; Visit Provider Urology
DX: N20.0 Calculus of kidney (principal); E78.00 Pure hypercholesterolemia, unspecified; R30.0 Dysuria; E11.9 Type 2 diabetes mellitus without complications; E55.9 Vitamin D deficiency, unspecified; I10 Essential (primary) hypertension
CPT/HCPCS: 36415; 76775; 80053; 80061; 81003; 82043; 82306; 82570; 83036; 84443; 85025

== ENCOUNTER 2024-01-10 08:45 | Outpatient (AMB) | payer MEDICARE, OTHER, SELFPAY ==
--- NOTE | 2024-01-10 08:42 | A.OFFVIS_ITS ---
Intake Visit Reasons: 6M Follow Up-Ultrasound(set) Intake Note: Patient presents today for a 6m follow-up/ultrasound Meds- None Allergies to Antibiotic- No Known Allergies Blood Thinner- Aspirin Performance Makeup Artist Required: No Accompanied by: Self / Same As Patient Allergies mold Allergy (Intermediate, Verified 01/10/24 08:43) HAYFEVER metformin Adverse Reaction (Severe, Verified 01/10/24 08:43) severe fatigue; exhaustion DUST Allergy (Intermediate, Uncoded 01/10/24 08:43) HAYFEVER Medication List - Last Reconciled 01/10/24 by Magdi Mckenzie MD amlodipine 5 mg PO DAILY 90 days aspirin 81 mg PO DAILY atorvastatin 10 mg PO BEDTIME 90 days clotrimazole-betamethasone 1-0.05 % 1 appl topical BID 2 weeks [CPAP DEVICE RESMED full face MASK MEDIUM As directed start 4-16 cm H2O humidified AIR] glipizide ER 5 mg PO QAM 90 days hydrochlorothiazide 25 mg PO DAILY 90 days Januvia (sitagliptin phosphate) 100 mg PO DAILY 90 days NS lisinopril 40 mg PO DAILY 90 days oxycodone-acetaminophen 5-325 mg (Percocet) 1 tab PO Q6H PRN potassium chloride ER 20 mEq PO DAILY 90 days HPI Comments Details: Mr Palmer is a very pleasant male. He is a patient of Dr Lynne. He is seen for the following urologic conditions. - nephrolithiasis Telemedicine Evaluation 15 min Consultation Doximity Lissy Video Renal ultrasound Continued with 3 small stones on the right up to 6 mm and 2 stones on the left Remains asymptomatic Continue potassium citrate Six-month follow-up with imaging Nephrolithiasis/Urolithiasis:? No imaging done recently Will plan on repeating in 6 months Should remain on potassium citrate Concomitant diagnosis includes diabetes ? They are here for?further evaluation of nephrolithiasis ?- stone staying stable ? Urolithiasis was diagnosed?10/2015.? The patient previously had kidney stones whose composition w?calcium oxalate - monohydrate, calcium phosphate - brushite ?06/07 CaOxMono 75%.? Laboratory investigations include?pending.? 24 Hour urine evaluation?01/31 - Low Urine volume < 2.0 liters, Hypercalciuria (> 200mg), High oxalate > 30mg ?09/01 , Good Volume > 2.00 L, High Sodium (> 100mEq), High oxalate > 30mg, Hypercalciuria (> 200mg) ?07/03 , Good Volume > 2.00 L, Hypercalciuria (> 200mg), High Sodium (> 100mEq), High oxalate > 30mg, High Citrate ?02/02 , Good Volume > 2.00 L, High Citrate, High oxalate > 30mg, High Sodium (> 100mEq), Hypercalciuria (> 200mg ?08/04 , Good Volume > 2.00 L, Hypercalciuria (> 200mg) 282 ?09/04 good volume, high oxalate high sodium ? Prior treatment(s) include?01/31 , right, ureteroscopy ?09/01 , medical management, with allopurinol, , with thiazides ?07/03 indapamide, sildenafil ?06/07 USR right side ? Prior imaging includes?a CT (computed tomography) scan of the abdomen/pelvis (stone protocol) multiple right renal stones. Largest is 9 x 21 mm. Smaller right lower pole renal stones largest is 4 x 5 mm. Mild right hydronephrosis. No stone seen in the ureter. Left kidney no stone seen. ?02/01 - , a renal ultrasound - residual 5mm fragments ?07/03 , a renal ultrasound, showing radiodense stone(s), bilaterally ?08/03 , a CT (computed tomography) scan of the abdomen/pelvis (stone protocol), showing radiodense stone(s) small bilateral ?02/02 , a renal ultrasound right 5mm x3, left punctate ?08/04 , a renal ultrasound right 5mm x 3, left small ?02/03 , a renal ultrasound right multiple stones ?08/05 , a renal ultrasound, 4 mm right, nothing left - 04/06 renal ultrasound no stones seen - 01/07 renal ultrasound 4 mm right, no stone on left - 07/09 renal ultrasound 7 mm stone side - 01/09 renal ultrasound multiple small stones right side, 2 small stones left side ? UA today shows?specific gravity within normal range suggestive of adequate hydration today.? Current therapeutic plan will be?indapamide 2.5, keep up fluids.? Risk, benefits and alternatives to therapy were discussed regarding the use and timing of prescribed medications. Pertinent side effects and interactions for medications were highlighted and adherence emphasized. [facility] Medical History Arthritis Warthin's tumor Vitamin D deficiency Localized swelling, mass and lump, right upper limb Morbid obesity with BMI of 40.0-44.9, adult Obstructive sleep apnea Renal calculi Pure hypercholesterolemia Benign essential hypertension Hx of renal calculi HTN (hypertension) Diabetes Adenomatous colon polyp Surgical History S/P right knee arthroscopy (~04/08/23) Hx of appendectomy Hx of cystoscopy Hx of cystoscopy H/O lithotripsy Hx of colonoscopy (~03/15/17) History of parotidectomy Family History Father CVD (cardiovascular disease) Mother Cancer Colon cancer Social History Household Members: Spouse Housing: House Are you a primary student career development specialist to a significant other at home: No Do you presently have visiting nurse or other home services: No Alcohol intake: current Alcohol intake frequency: holidays/special occasions on ly Comment: uses cane as needed with current knee issue Patient Tobacco Use Status: Former Tobacco user Tobacco use type: Cigarette Years Smoked: 30 e-Cigarette/Vaping Use: Never Used Second Hand Smoke Exposure: No service: No Current occupational status: employed 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 [employer] Cognitive needs: No Hearing needs: No Vision needs: No Review of Systems Const All systems reviewed & are unremarkable except as noted in HPI and below Reports no additional complaints Resp Reports no additional complaints GI Reports no additional complaints Reports as per HPI Musc Reports no additional complaints Physical Exam Telemedicine evaluation Appropriate responses Regular breathing rate and rhythm HEENT Head: Yes normal to inspection Ears: hearing grossly normal bilaterally Eyes General: appearance normal, both eyes and all related structures Neck Neck: Yes normal visual inspection Chest Chest palpation & inspection: normal inspection of the chest Resp Effort & Inspection: normal respiratory effort and able to speak in complete sentences Telehealth Telehealth Location of provider rendering services: practice address Location of patient: address on file Patient Identification confirmed using: Name, : Yes Telehealth method: voice only Patient verbally consented to treatment: Yes Patient verbally consented to billing insurance company: Yes Patient informed of any privacy concerns related to visit: Yes Assessment & Plan Assessment & Plan (1) Renal calculi: Code(s): N20.0 - Calculus of kidney Category: Medical Plan 6m f/u KUB Orders: Orders XR KUB 6 Months N20.0 - Calculus of kidney Patient Instructions: Imaging studies, laboratory and physical exam results were discussed and reviewed in detail. No major barriers to patient understanding were identified. An opportunity to ask questions regarding the treatment plan was provided. All questions were answered. The patient expressed understanding and agreement with the above treatment plan. The patient is aware they should contact our office by phone for worsening of their current condition or the appearance of new urologic symptoms. Compliance is encouraged with any medications and followup testing that is ordered. It is a privilege to participate in the urologic care of your patient. If you have any questions or concerns regarding treatment for the above conditions, or other urologic issues, please do not hesitate to contact me. The office telephone contact is [phone]. This note is constructed using voice recognition software. While every effort has been made to ensure accuracy syrup maker cook errors may have been included. Yours sincerely, Dr Magdi Mckenzie MD, [facility] - Urology Providers of Expert, Compassionate Care for the Genitourinary System Coding Level of Care Code Tele Est Pt Level 3 (29173) Diagnoses Renal calculi N20.0
== END 2024-01-10 09:33 | disposition home or self-care (01) ==
LOC: HO.HUSH 08:45
PROVIDERS: PCP Internal Medicine; Visit Provider Urology
DX: N20.0 Calculus of kidney (principal)
CPT/HCPCS: 99213

== ENCOUNTER → 2024-01-10 08:45 | Outpatient (BNVA) | payer MEDICARE, OTHER, SELFPAY | PROVIDERS: PCP Internal Medicine; Visit Provider Urology ==

== ENCOUNTER 2024-01-20 09:13 | Outpatient (AMB) | payer MEDICARE, OTHER, SELFPAY ==
--- NOTE | 2024-01-20 09:17 | A.OFFPC_ITS ---
Vital Signs 01/20/24 09:18 Height 5 ft 5 in Weight 259 lb BMI 43.1 BP 120/70 Blood Pressure Location Lt brachial Position Sitting Pulse 99 Pulse Source Pulse Oximeter Pulse Oximetry (%) 96 Oxygen Delivery Method Room Air Intake Visit Reasons: DM, hyperlipidemia, HTN Intake Note: Patient is here to follow up on DM, HLD, HTN. Pt decline flu shot today. Composition Roll Maker And Cutter Required: No Cloth Winder: Not Required per policy Accompanied by: Self / Same As Patient Allergies mold Allergy (Intermediate, Verified 01/20/24 09:32) HAYFEVER metformin Adverse Reaction (Severe, Verified 01/20/24 09:32) severe fatigue; exhaustion DUST Allergy (Intermediate, Uncoded 01/20/24 09:32) HAYFEVER Medication List - Last Reconciled 01/20/24 by Misha Lynne MD amlodipine 5 mg PO DAILY 90 days aspirin 81 mg PO DAILY atorvastatin 10 mg PO BEDTIME 90 days clotrimazole-betamethasone 1-0.05 % 1 appl topical BID 2 weeks [CPAP DEVICE RESMED full face MASK MEDIUM As directed start 4-16 cm H2O humidified AIR] glipizide ER 5 mg PO QAM 90 days hydrochlorothiazide 25 mg PO DAILY 90 days Januvia (sitagliptin phosphate) 100 mg PO DAILY 90 days NS lisinopril 40 mg PO DAILY 90 days oxycodone-acetaminophen 5-325 mg (Percocet) 1 tab PO Q6H PRN potassium chloride ER 20 mEq PO DAILY 90 days Tobacco use date assessed: 01/20/24 Fall risk assessment: No Falls in past year Last assessed Fall Risk: 01/20/24 Dental Screening Dental Screen Date: 05/12/23 HPI DM, hyperlipidemia, HTN HPI Details Patient comes in today for his follow up visit States that he feels okay except for increasing right knee pain lately He denies any headaches or dizziness Denies any chest pains, no SOB No nausea/vomiting, no abdominal pain No change in bowel habits noted Had his follow up labs done last month - to discuss his results [facility] Medical History Arthritis Warthin's tumor Vitamin D deficiency Localized swelling, mass and lump, right upper limb Morbid obesity with BMI of 40.0-44.9, adult Obstructive sleep apnea Renal calculi Pure hypercholesterolemia Benign essential hypertension Hx of renal calculi HTN (hypertension) Diabetes Adenomatous colon polyp Surgical History S/P right knee arthroscopy (~04/08/23) Hx of appendectomy Hx of cystoscopy Hx of cystoscopy H/O lithotripsy Hx of colonoscopy (~03/15/17) History of parotidectomy Family History Father CVD (cardiovascular disease) Mother Cancer Colon cancer Social History Household Members: Spouse Housing: House Are you a primary care transition manager to a significant other at home: No Do you presently have visiting nurse or other home services: No Alcohol intake: current Alcohol intake frequency: holidays/special occasions only Comment: uses cane as needed with current knee issue Patient Tobacco Use Status: Former Tobacco user Tobacco use type: Cigarette Years Smoked: 30 e-Cigarette/Vaping Use: Never Used Second Hand Smoke Exposure: No service: No Current occupational status: employed Current occupation: [employer] Cognitive needs: No Hearing needs: No Vision needs: No Questionnaire Thrive Questionnaire Date Thrive assessed: 05/12/23 Are you currently unemployed and looking for a job?: Yes JASPREET-7 AMB Questionnaire JASPREET-7 Date JASPREET - 7 assessed: 05/12/23 Source: Developed by Drs. Jarad Vee, Stephany Nino, Ebenezer Ramirez and colleagues, with an educational dinh from [employer]. Review of Systems Const Denies chills, Denies fatigue, Denies fever(s) and Denies headache(s) ENT Denies dysphagia, Denies dizziness, Denies otalgia, Denies headache(s), Denies neck pain, Denies odynophagia and Denies sore throat Card Denies chest pain, Denies palpitations and Denies dyspnea Resp Denies cough and Denies dyspnea GI Denies abdominal pain, Denies constipation, Denies dysphagia, Denies diarrhea, Denies nausea, Denies odynophagia and Denies vomiting Denies dysuria, Denies nocturia and Denies urinary frequency Musc Denies back pain, Reports arthralgias (right knee pain increasing again lately) and Denies neck pain Skin/Breast Denies rash Neuro Denies dizziness and Denies headache(s) Endo Denies fatigue and Denies palpitations Physical exam (Primary Care) Vital Signs: Last Vital Signs Pulse 99 01/20/24 09:18 BP 120/70 01/20/24 09:18 Pulse Ox 96 01/20/24 09:18 Oxygen Delivery Method Room Air 01/20/24 09:18 BMI result Body Mass Index 43.1 Tobacco/Smoking Status: Tobacco use Status Tobacco use date assessed 01/20/24 01/20/24 09:23 Patient Tobacco Use Status Former Tobacco user 01/20/24 09:23 Tobacco use type Cigarette 01/20/24 09:23 e-Cigarette/Vaping Use Never Used 01/20/24 09:23 Thrive Assessment: Date of Thrive Assessment Date Thrive assessed 05/12/23 01/20/24 09:23 Const General: no acute distress and alert HENMT Ears: TM's normal bilaterally and EAC's normal Throat: Yes posterior oropharynx normal and Yes tonsils normal Neck Neck: Yes no lymphadenopathy and Yes supple Thyroid: Thyroid normal Resp Auscultation: clear to auscultation bilaterally, no rales and no wheezes Cardio Rate: regular rate Rhythm: regular rhythm Heart sounds: no murmurs GI Palpation (GI): Soft to palpation and nontender Auscultation: normal bowel sounds General: Yes no CVA tenderness Back/Spine/Pelvis Back: no CVA tenderness Skin Rashes: no rashes Extrem General: Yes no clubbing, cyanosis or edema Right lower extremity: knee Details: tenderness Location: of the medial joint line; no swelling Results Reviewed Results Reviewed: Laboratory Tests 12/29/23 12/29/23 06:53 06:55 WBC 5.9 Hgb 15.9 Hct 45.5 Plt Count 271 Sodium 139 Potassium 3.8 Creatinine 0.99 Estimated GFR > 60 Fasting Glucose 192 H Hemoglobin A1c % 7.6 H Calcium 9.4 AST 33 ALT 43 H Triglycerides 176 H Cholesterol 122 LDL Cholesterol, Calc 58 HDL Cholesterol 29 L 25-OH Vitamin D Total 32.8 TSH 1.90 Ur Specific Cisco 1.025 Urine Protein Negative Urine Glucose (UA) Negative Urine Blood Negative Urine Nitrite Negative Ur Leukocyte Esterase Negative Microalb/Creat Ratio 6.4 Coding Level of Care Code Est Pt Level 4 (93604) Diagnoses Type 2 diabetes mellitus with hyperglycemia, without long-term current use of insulin E11.65 Diabetes mellitus type: type 2 Diabetes mellitus assisted insulin use: without assisted use Diabetes mellitus complication status: with hyperglycemia Benign essential hypertension I10 Pure hypercholesterolemia E78.00 Obstructive sleep apnea G47.33 Vitamin D deficiency E55.9 Renal calculi N20.0 Bilateral primary osteoarthritis of knee M17.0 Morbid obesity with BMI of 40.0-44.9, adult E66.01; Z68.41 Assessment & Plan Assessment & Plan (1) Diabetes mellitus: Code(s): E11.9 - Type 2 diabetes mellitus without complications Category: Medical Qualifiers: Diabetes mellitus type: type 2 Diabetes mellitus assisted insulin use: without intermediate school teacher use Diabetes mellitus complication status: with hyperglycemia Qualified Code(s): E11.65 - Type 2 diabetes mellitus with hyperglycemia Plan: His HgbA1c has improved again slightly to 7.6% on his labs done last month (HgbA1c was previously at 7.8% a few months ago) - goal is < 7.0% Reinforced diabetic diet - he is still on his [place] diet, which has helped him a lot Continue Glipizide ER 5 mg Q AM and Januvia 100 mg QD (2) Benign essential hypertension: Code(s): I10 - Essential (primary) hypertension Category: Medical Plan: Reinforced low sodium diet - goal is systolic BP of at least 130 to 140 mm or less Continue Lisinopril 40 mg QD, HCTZ 25 mg QD in AM and Amlodipine 5 mg QD (3) Pure hypercholesterolemia: Code(s): E78.00 - Pure hypercholesterolemia, unspecified Category: Medical Plan: Results of his labs done last month reviewed and discussed with patient Reinforced low cholesterol diet Continue [place]-3 capsules 340 mg QD and Atorvastatin 10 mg QD Will recheck his labs and fasting lipids in 4 months for follow up (4) Obstructive sleep apnea: Comment: uses CPAP nightly Code(s): G47.33 - Obstructive sleep apnea (adult) (pediatric) Category: Medical Plan: Patient continues to use his CPAP device regularly/daily when sleeping at night - feels that it is still helping him a lot (5) Vitamin D deficiency: Code(s): E55.9 - Vitamin D deficiency, unspecified Category: Medical Plan: Corrected - continue Vitamin D3 2000 units QD (6) Renal calculi: Code(s): N20.0 - Calculus of kidney Category: Medical Plan: The composition of his kidney stones in the past were mostly calcium oxalate He has been asymptomatic lately; is again encouraged to continue to increase his oral fluid intake He had a repeat renal US done a few months ago that revealed (+) bilateral nonobstructing renal stones measuring up to 7 mm on the right and 2 mm on the left with some new from prior. Left renal pelviectasis without rudi hydronephrosis Follow up with urology (Dr. Mckenzie) as scheduled (7) Bilateral primary osteoarthritis of knee: Code(s): M17.0 - Bilateral primary osteoarthritis of knee Category: Medical Plan: MRI of the right knee done last year (02/2023) revealed (+) complex tearing of the posterior medial meniscal body with a near-complete radial component as well as a superiorly displaced meniscal flap. Complex tearing extends along the inner margin and tibial articular surface of the posterior horn and root. There is also moderate medial as well as mild patellofemoral compartment osteoarthritis and moderate joint effusion and trace Stacy's cyst Patient underwent right knee arthroscopic surgery with Dr. Francois last year in March 2023 with (+) relief of symptoms but states that his knee has been bothering him a lot again recently and he plans to check back with orthopedics again about this CHUNG (8) Morbid obesity with BMI of 40.0-44.9, adult: Code(s): E66.01 - Morbid (severe) obesity due to excess calories; Z68.41 - Body mass index [BMI] 40.0-44.9, adult Category: Medical Plan: Reinforced diet/exercise as tolerated/lose weight Plan Follow up in 4 months Orders: Orders Hemoglobin A1c 4 Months E11.9 - Type 2 diabetes mellitus without complications Complete Blood Count Auto Diff 4 Months D64.9 - Anemia, unspecified Comprehensive [place]. Panel Fast 4 Months E78.00 - Pure hypercholesterolemia, unspecified Lipid Panel 4 Months E78.00 - Pure hypercholesterolemia, unspecified Vitamin D 25-OH Total 4 Months E55.9 - Vitamin D deficiency, unspecified Vitamin B12 and Folate 4 Months E53.8 - Deficiency of other specified B group vitamins UA CC w/rflx Micro + Cult 4 Months R30.0 - Dysuria
[2024-01-20 09:18] VITALS: BP 120/70; PULSE 99; O2SAT 96; BMI 43.1
== END 2024-01-20 09:44 | disposition home or self-care (01) ==
PROVIDERS: PCP Internal Medicine; Visit Provider Internal Medicine
DX: E11.65 Type 2 diabetes mellitus with hyperglycemia (principal); E66.813 Obesity, class 3; Z68.41 Body mass index [BMI] 40.0-44.9, adult; I10 Essential (primary) hypertension; E78.00 Pure hypercholesterolemia, unspecified; G47.33 Obstructive sleep apnea (adult) (pediatric); E55.9 Vitamin D deficiency, unspecified; N20.0 Calculus of kidney; M17.0 Bilateral primary osteoarthritis of knee

== ENCOUNTER → 2024-01-20 09:13 | Outpatient (BNVA) | payer MEDICARE, OTHER, SELFPAY | PROVIDERS: PCP Internal Medicine; Visit Provider Internal Medicine | DX: E11.65 Type 2 diabetes mellitus with hyperglycemia (principal); I10 Essential (primary) hypertension; E78.00 Pure hypercholesterolemia, unspecified; E55.9 Vitamin D deficiency, unspecified; N20.0 Calculus of kidney; M17.0 Bilateral primary osteoarthritis of knee; E66.01 Morbid (severe) obesity due to excess calories; Z67.41 Type O blood, Rh negative; Z71.3 Dietary counseling and surveillance | CPT/HCPCS: 99212 ==

== ENCOUNTER 2024-02-21 11:16 | Outpatient (AMB) | payer MEDICARE, OTHER, SELFPAY ==
--- NOTE | 2024-02-21 11:26 | MHC.OFFVIS ---
Vital Signs 02/21/24 11:30 Height 5 ft 5 in Weight 259 lb BMI 43.1 Intake Visit Reasons: Recurrent right knee pain and giving way Intake Note: Vincent is a 67 year old male who presents with complaints of progressively worsening recurrent right knee pain and giving way. The patient did undergo right knee arthroscopic surgery on 04/08/2023. The patient states that initially he got very good relief from the surgery. The patient states that approximately 6 months ago his 130 lb. jiang dog ran into his right knee. He twisted his knee and had acute onset of pain along the medial aspect of his knee. Since that time his pain and mechanical symptoms have gotten progressively worse in spite of continued non operative treatments. He has failed the last 6 weeks of conservative treatment. He has done physical therapy which aggravated his pain. He has had injections in the past which gave him no relief. He has also tried Tylenol and anti-inflammatory medicines which gave him minimal relief. Allergies mold Allergy (Intermediate, Verified 02/21/24 11:30) HAYFEVER metformin Adverse Reaction (Severe, Verified 02/21/24 11:30) severe fatigue; exhaustion DUST Allergy (Intermediate, Uncoded 02/21/24 11:30) HAYFEVER Medication List - Last Reconciled 02/21/24 by Cas Francois MD amlodipine 5 mg PO DAILY 90 days aspirin 81 mg PO DAILY atorvastatin 10 mg PO BEDTIME 90 days clotrimazole-betamethasone 1-0.05 % 1 appl topical BID 2 weeks [CPAP DEVICE RESMED full face MASK MEDIUM As directed start 4-16 cm H2O humidified AIR] glipizide ER 5 mg PO QAM 90 days hydrochlorothiazide 25 mg PO DAILY 90 days Januvia (sitagliptin phosphate) 100 mg PO DAILY 90 days NS lisinopril 40 mg PO DAILY 90 days oxycodone-acetaminophen 5-325 mg (Percocet) 1 tab PO Q6H PRN potassium chloride ER 20 mEq PO DAILY 90 days PFSH Medical History Arthritis Warthin's tumor Vitamin D deficiency Localized swelling, mass and lump, right upper limb Morbid obesity with BMI of 40.0-44.9, adult Obstructive sleep apnea Renal calculi Pure hypercholesterolemia Benign essential hypertension Hx of renal calculi HTN (hypertension) Diabetes Adenomatous colon polyp Surgical History S/P right knee arthroscopy (~04/08/23) Hx of appendectomy Hx of cystoscopy Hx of cystoscopy H/O lithotripsy Hx of colonoscopy (~03/15/17) History of parotidectomy Family History Father CVD (cardiovascular disease) Mother Cancer Colon cancer Social History Household Members: Spouse Housing: House Are you a primary long term care administrator to a significant other at home: No Do you presently have visiting nurse or other home services: No Alcohol intake: current Alcohol intake frequency: holidays/special occasions only Comment: uses cane as needed with current knee issue Patient Tobacco Use Status: Former Tobacco user Tobacco use type: Cigarette Years Smoked: 30 e-Cigarette/Vaping Use: Never Used Second Hand Smoke Exposure: No service: No Current occupational status: employed 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 [employer] Cognitive needs: No Hearing needs: No Vision needs: No Physical Exam Vital Signs: BMI result Body Mass Index 43.1 Const Other: Well-nourished well-developed very friendly male awake alert and oriented x3 in no acute distress Extrem Other: Bilateral lower extremity examination shows good capillary refill, no skin lesions noted, normal sensation light touch Right knee examination shows that the surgical incisions are well healed, no erythema, mild crepitus with range of motion, tenderness along his medial joint line, positive Massiel's test, no instability Results Reviewed Results Reviewed: X-rays of the patient's right knee taken previously show mild diffuse joint space narrowing, no acute bony abnormalities Assessment & Plan Assessment & Plan (1) Tear of medial meniscus of right knee: Code(s): S83.241A - Other tear of medial meniscus, current injury, right knee, initial encounter Category: Medical Plan Mr. Palmer presents with recurrent right knee pain and mechanical symptoms most likely due to a recurrent medial meniscus tear. Thus, I will send the patient for an MRI of his right knee for further evaluation. I will see him back once the MRI is completed to discuss the findings and treatment options. Feel free to call me at any time should questions regarding his orthopedic management arise. I spent 20 minutes in reviewing the patient's records and imaging studies, seeing the patient and documenting in the medical record. Orders: Orders MR knee RT wo con Today S83.241A - Other tear of medial meniscus, current injury, right knee, initial encounter Coding Level of Care Code Est Pt Level 3 (26184) Complex EM visit Add On G2211 Diagnoses Tear of medial meniscus of right knee S83.241A
[2024-02-21 11:30] VITALS: BMI 43.1
== END 2024-02-21 11:49 | disposition home or self-care (01) ==
LOC: HO.HOS 11:16
PROVIDERS: PCP Internal Medicine; Visit Provider Orthopaedic Surgery
DX: S83.241A Other tear of medial meniscus, current injury, right knee, initial encounter (principal)
CPT/HCPCS: 99213; G2211

== ENCOUNTER → 2024-02-21 11:16 | Outpatient (BNVA) | payer MEDICARE, OTHER, SELFPAY | PROVIDERS: PCP Internal Medicine; Visit Provider Orthopaedic Surgery | DX: S83.241A Other tear of medial meniscus, current injury, right knee, initial encounter (principal); W54.1XXA Struck by dog, initial encounter; Y93.9 Activity, unspecified; Y92.9 Unspecified place or not applicable; Y99.9 Unspecified external cause status | CPT/HCPCS: 99212 ==

== ENCOUNTER 2024-03-08 11:31 | Outpatient (REF) | payer MEDICARE, OTHER, SELFPAY ==
--- NOTE | ~2024-03-08 | MR_ITS ---
EXAMINATION: MR KNEE WITHOUT CONTRAST, RIGHT CLINICAL INFORMATION: Right knee pain. Evaluate for a meniscal tear. COMPARISON: Right knee MRI dated 02/21/2023. TECHNIQUE: MRI of the knee without contrast was performed using routine sequences on a high-field scanner. FINDINGS: MENISCI: Medial Meniscus: Complex tearing of the meniscal body with a superiorly displaced meniscal flap, measuring up to 0.7 cm in craniocaudal dimension, similar when compared to the prior examination. Tearing extends along the inner margin of the posterior horn, where there is an oblique inner margin component to the tear. Overall, the tear appears similar when compared to the prior MRI. Lateral Meniscus: Inner margin fraying of the meniscal body as well as fraying of the anterior and posterior roots, new when compared to the prior examination. LIGAMENTS: Cruciate: Intact Collateral: Edema adjacent to the medial collateral ligament which may be related to the meniscal tear or indicate a grade 1 sprain. Intact fibular collateral ligament. EXTENSOR MECHANISM: Superior patellar enthesophytes. Intact quadriceps and patellar tendons. ARTICULAR CARTILAGE/BONE: Patellofemoral Compartment: Patellar median ridge articular cartilage fissuring and delamination measuring up to 1.0 cm in minimal dimension, with mild subchondral cystic change. Superior lateral patellar facet full-thickness articular cartilage loss with subchondral cystic change. Medial trochlea signal heterogeneity. Findings are progressed when compared to the prior examination. Medial Compartment: Full-thickness weight-bearing articular cartilage loss with bony remodeling, subchondral cystic change, marrow edema, and marginal osteophytes. Findings are progressed when compared to the prior examination. Lateral Compartment: Articular cartilage signal heterogeneity with small marginal osteophytes, slightly progressed. JOINT FLUID AND BURSAE: Moderate joint effusion and trace Stacy's cyst. MR/MR knee RT wo con IMPRESSION: 1. Complex tearing of the medial meniscal body with a superiorly displaced meniscal flap, similar when compared to the prior examination. Tearing extends along the inner margin of the posterior horn, where there is an oblique inner margin component. Overall, the tear appears similar when compared to the prior examination. 2. Inner margin fraying of the lateral meniscal body as well as fraying of the anterior and posterior roots, new when compared to the prior examination. 3. Edema adjacent to the medial collateral ligament, which may be related to the meniscal tear or indicate a grade 1 sprain. 4. Severe medial as well as [id number] patellofemoral and mild lateral compartment osteoarthritis, progressed when compared to the prior examination. Moderate joint effusion and trace Stacy's cyst. Electronically signed by: Ector Rod MD 03/24/2024 09:01 PM [facility]
== END 2024-03-08 11:32 | disposition home or self-care (01) ==
LOC: HO.MRI 11:31
PROVIDERS: PCP Internal Medicine; Visit Provider Orthopaedic Surgery
DX: S83.241A Other tear of medial meniscus, current injury, right knee, initial encounter (principal)
CPT/HCPCS: 73721

== ENCOUNTER 2024-04-09 07:44 | Outpatient (AMB) | payer MEDICARE, OTHER, SELFPAY ==
[2024-04-09 07:50] VITALS: BMI 43.1
--- NOTE | 2024-04-09 07:50 | MHC.OFFVIS ---
Vital Signs 04/09/24 07:50 Height 5 ft 5 in Weight 259 lb BMI 43.1 Intake Visit Reasons: Right knee pain and giving way Intake Note: Vincent is a 67 year old male who presents with complaints of progressively worsening recurrent right knee pain and giving way. The patient did undergo right knee arthroscopic surgery on 04/08/2023. The patient states that initially he got very good relief from the surgery. The patient states that approximately 6 months ago his 130 lb. jiang dog ran into his right knee. He twisted his knee and had acute onset of pain along the medial aspect of his knee. Since that time his pain and mechanical symptoms have gotten progressively worse in spite of continued non operative treatments. He has failed the last 6 weeks of conservative treatment. He has done physical therapy which aggravated his pain. He has had injections in the past which gave him no relief. He has also tried Tylenol and anti-inflammatory medicines which gave him minimal relief. Allergies mold Allergy (Intermediate, Verified 04/09/24 07:50) HAYFEVER metformin Adverse Reaction (Severe, Verified 04/09/24 07:50) severe fatigue; exhaustion DUST Allergy (Intermediate, Uncoded 04/09/24 07:50) HAYFEVER Medication List - Last Reconciled 04/10/24 by Cas Francois MD amlodipine 5 mg PO DAILY 90 days aspirin 81 mg PO DAILY atorvastatin 10 mg PO BEDTIME 90 days clotrimazole-betamethasone 1-0.05 % 1 appl topical BID 2 weeks [CPAP DEVICE RESMED full face MASK MEDIUM As directed start 4-16 cm H2O humidified AIR] glipizide ER 5 mg PO QAM 90 days hydrochlorothiazide 25 mg PO DAILY 90 days Januvia (sitagliptin phosphate) 100 mg PO DAILY 90 days NS lisinopril 40 mg PO DAILY 90 days potassium chloride ER 20 mEq PO DAILY 90 days [facility] Medical History Arthritis Warthin's tumor Vitamin D deficiency Localized swelling, mass and lump, right upper limb Morbid obesity with BMI of 40.0-44.9, adult Obstructive sleep apnea Renal calculi Pure hypercholesterolemia Benign essential hypertension Hx of renal calculi HTN (hypertension) Diabetes Adenomatous colon polyp Surgical History S/P right knee arthroscopy (~12/22/23) Hx of appendectomy Hx of cystoscopy Hx of cystoscopy H/O lithotripsy Hx of colonoscopy (~03/15/17) History of parotidectomy Family History Father CVD (cardiovascular disease) Mother Cancer Colon cancer Social History Household Members: Spouse Housing: House Are you a primary personal care aide to a significant other at home: No Do you presently have visiting nurse or other home services: No Alcohol intake: current Alcohol intake frequency: holidays/special occasions only Comment: uses cane as needed with current knee issue Patient Tobacco Use Status: Former Tobacco user Tobacco use type: Cigarette Years Smoked: 30 e-Cigarette/Vaping Use: Never Used Second Hand Smoke Exposure: No service: No Current occupational status: employed 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 [employer] Cognitive needs: No Hearing needs: No Vision needs: No Physical Exam Vital Signs: BMI result Body Mass Index 43.1 Const Other: Well-nourished well-developed very friendly male awake alert and oriented x3 in no acute distress Extrem Other: Bilateral lower extremity examination shows good capillary refill, no skin lesions noted, normal sensation light touch Right knee examination shows a minimal effusion, mild crepitus with range of motion, tenderness along his medial joint line, positive Massiel's test, no instability Results Reviewed Results Reviewed: Standing full weight-bearing x-rays of the patient's right knee show mild diffuse joint space narrowing, no acute bony abnormalities MRI of the patient's right knee shows mild diffuse degenerative changes as well as a recurrent tear of the medial meniscus Assessment & Plan Assessment & Plan (1) Tear of medial meniscus of right knee: Code(s): S83.241A - Other tear of medial meniscus, current injury, right knee, initial encounter Category: Medical Plan Mr. Palmer presents with recurrent right knee pain and mechanical symptoms due to a recurrent medial meniscus tear. I had a lengthy discussion with the patient regarding the treatment options. At this point the patient has failed continued non operative treatments. The risks and benefits of right knee arthroscopic surgery were discussed at length with the patient. The patient wishes to proceed with surgery. Surgery will most likely involve right knee arthroscopic partial medial meniscectomy. The patient does understand that he may not get 100% relief of his symptoms depending on the severity of his degenerative changes. He will be scheduled for next available date. He will follow-up as instructed. Feel free to call me at any time should questions regarding his orthopedic management arise. I spent 21 minutes in reviewing the patient's records and imaging studies, seeing the patient and documenting in the medical record. Coding Level of Care Code Est Pt Level 3 (44003) Complex EM visit Add On G2211 Diagnoses Tear of medial meniscus of right knee S83.241A
== END 2024-04-09 08:25 | disposition home or self-care (01) ==
PROVIDERS: PCP Internal Medicine; Visit Provider Orthopaedic Surgery
DX: S83.241A Other tear of medial meniscus, current injury, right knee, initial encounter (principal)
CPT/HCPCS: 99214; G2211

== ENCOUNTER → 2024-04-09 07:44 | Outpatient (BNVA) | payer MEDICARE, OTHER, SELFPAY | PROVIDERS: PCP Internal Medicine; Visit Provider Orthopaedic Surgery | DX: S83.241D Other tear of medial meniscus, current injury, right knee, subsequent encounter (principal) | CPT/HCPCS: 99212 ==

== ENCOUNTER 2024-05-11 10:29 | Day surgery (SDC) | payer MEDICARE, OTHER, SELFPAY ==
[2024-05-09 11:38] VITALS: BMI 43.1
[2024-05-11] VITALS (7 sets, daily range): BP systolic 108–124; BP diastolic 63–78; PULSE 72–88; RESP 12–16; TEMP 36.1–36.8; O2SAT 95–97; BMI 44.1
[2024-05-11] MEDS: Lactated Ringers 1,000 ML 100 ML IVCONT (11:10)
--- NOTE | 2024-05-11 11:10 | HO.ANESPROP2 ---
Documented by User: Morenita Ramires NP 05/09/24 13:30 HPI - Anesthesia Eval Consult details Narrative: 68yo M for right Knee Arthroscopy,with partial medial meniscectomy s/p same 03/2023 with GA-LMA 5 PMFSH Active Problems Active Problems: All Active Problems Tear of medial meniscus of right knee (Acute) S/P right knee arthroscopy (Acute ~04/08/23) Bilateral primary osteoarthritis of knee (Acute) Knee clicking (Acute) Left knee pain (Acute) Right knee pain (Acute) Rash (Acute) Dystrophic nail (Acute) Annual physical exam (Acute) Diabetes mellitus (Acute) Vitamin D deficiency (Acute) Localized swelling, mass and lump, right upper limb (Acute) Morbid obesity with BMI of 40.0-44.9, adult (Acute) Obstructive sleep apnea (Acute) Renal calculi (Acute) Pure hypercholesterolemia (Acute) Benign essential hypertension (Acute) HTN (hypertension) (Acute) Diabetes (Acute) Adenomatous colon polyp (Acute) Past Medical History Medical History Arthritis Warthin's tumor Vitamin D deficiency Localized swelling, mass and lump, right upper limb Morbid obesity with BMI of 40.0-44.9, adult Obstructive sleep apnea Renal calculi Pure hypercholesterolemia Benign essential hypertension Hx of renal calculi HTN (hypertension) Diabetes Adenomatous colon polyp Family History Family History Father CVD (cardiovascular disease) Mother Cancer Colon cancer Family history of problems with anesthesia: No Surgical History Surgical History S/P right knee arthroscopy (~04/08/23) Hx of appendectomy Hx of cystoscopy Hx of cystoscopy H/O lithotripsy Hx of colonoscopy (~03/15/17) History of parotidectomy History of Problems with Anesthesia: No Social History Social History Household Members: Spouse Housing: House Are you a primary date night caregiver to a significant other at home: No Do you presently have visiting nurse or other home services: No Alcohol intake: current Alcohol intake frequency: holidays/special occasions only Comment: uses cane as needed with current knee issue Patient Tobacco Use Status: Former Tobacco user Tobacco use type: Cigarette Years Smoked: 30 e-Cigarette/Vaping Use: Never Used Second Hand Smoke Exposure: No Advance Directives: No Advance Directives Information Provided: Yes service: No Current occupational status: employed 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 [employer] Cognitive needs: No Hearing needs: No Vision needs: No Meds Allergies Allergy/AdvReac Type Severity Reaction Status Date / Time mold Allergy Intermediate HAYFEVER Verified 05/11/24 10:53 metformin AdvReac Severe severe Verified 05/11/24 10:53 fatigue; exhaustion DUST Allergy Intermediate HAYFEVER Uncoded 04/09/24 07:50 Active Medications: Current Medications Cefazolin Sodium/Dextrose (Ancef) 2 gm in 50 mls @ 100 mls/hr IV PREOP ONE Stop: 05/11/24 05:32 Home Medications ?Medication ?Instructions ?Recorded ?Confirmed ?Last Taken ?Type aspirin 81 mg tablet,delayed 81 mg PO DAILY 05/23/20 05/11/24 04/18/24 History release Exam Height,Weight and Vital Signs: Height 5 ft 5 in Weight 117.48 kg Pertinent Lab Results Pertinent Lab Results: Laboratory Tests 12/29/23 06:55 WBC 5.9 Hgb 15.9 Hct 45.5 Plt Count 271 Sodium 139 Potassium 3.8 Chloride 103 Carbon Dioxide 26 BUN 14 Creatinine 0.99 Narrative Narrative: EKG 03/2023 Vent. Rate : 101 BPM Atrial Rate : 101 BPM P-R Int : 180 ms QRS Dur : 084 ms QT Int : 352 ms P-R-T Axes : 025 029 035 degrees QTc Int : 456 ms Sinus tachycardia Otherwise normal ECG When compared with ECG of 07-MAY-2004 16:37, Premature atrial complexes are no longer Present Assessment and Plan Assessment Anesthesia Assessment: Chart Reviewed Final Anesthetic Review Family History of Problems with Anesthesia: No History of Problems with Anesthesia: No Documented by User: Phoebe Perry DO 05/11/24 11:21 [facility] Past Medical History Medical History Arthritis Warthin's tumor Vitamin D deficiency Localized swelling, mass and lump, right upper limb Morbid obesity with BMI of 40.0-44.9, adult Obstructive sleep apnea Renal calculi Pure hypercholesterolemia Benign essential hypertension Hx of renal calculi HTN (hypertension) Diabetes Adenomatous colon polyp Family History Family History Father CVD (cardiovascular disease) Mother Cancer Colon cancer Family history of problems with anesthesia: No Surgical History Surgical History S/P right knee arthroscopy (~04/08/23) Hx of appendectomy Hx of cystoscopy Hx of cystoscopy H/O lithotripsy Hx of colonoscopy (~03/15/17) History of parotidectomy History of Problems with Anesthesia: No Social History Social History Household Members: Spouse Housing: House Are you a primary date night caregiver to a significant other at home: No Do you presently have visiting nurse or other home services: No Alcohol intake: current Alcohol intake frequency: holidays/special occasions only Comment: uses cane as needed with current knee issue Patient Tobacco Use Status: Former Tobacco user Tobacco use type: Cigarette Years Smoked: 30 e-Cigarette/Vaping Use: Never Used Second Hand Smoke Exposure: No Advance Directives: No Advance Directives Information Provided: Yes service: No Current occupational status: employed 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 [employer] Cognitive needs: No Hearing needs: No Vision needs: No Meds Allergies Allergy/AdvReac Type Severity Reaction Status Date / Time mold Allergy Intermediate HAYFEVER Verified 05/11/24 10:53 metformin AdvReac Severe severe Verified 05/11/24 10:53 fatigue; exhaustion DUST Allergy Intermediate HAYFEVER Uncoded 04/09/24 07:50 Home Medications ?Medication ?Instructions ?Recorded ?Confirmed ?Last Taken ?Type aspirin 81 mg tablet,delayed 81 mg PO DAILY 05/23/20 05/11/24 04/18/24 History release Exam Exam Date and Time: 05/11/24 1110 Height,Weight and Vital Signs: Height 5 ft 5 in Weight 117.48 kg Vital Signs Temperature 98.3 F 05/11/24 11:15 Pulse Rate 88 05/11/24 11:15 Respiratory Rate 14 05/11/24 11:15 Blood Pressure 117/73 05/11/24 11:15 Pulse Oximetry 95 05/11/24 11:15 Oxygen Delivery Method Room Air 05/11/24 11:15 Temperature 98.3 F 05/11/24 11:15 Pulse Rate 88 05/11/24 11:15 Respiratory Rate 14 05/11/24 11:15 Blood Pressure 117/73 05/11/24 11:15 Pulse Oximetry 95 05/11/24 11:15 Oxygen Delivery Method Room Air 05/11/24 11:15 Airway Mallampati Class: III TM Dist: >3cm Neck ROM: Full Loose/Missing/Broken Teeth: Yes (missing molars, but no loose or broken teeth) Heart: S1S2 Lungs: CTAB Assessment and Plan Assessment Anesthesia Assessment: Anesthesia Plan Discussed and Chart Reviewed Final Anesthetic Review Family History of Problems with Anesthesia: No History of Problems with Anesthesia: No NPO: Yes ASA Class: III Final Preanesthetic Review: No Changes in Pt Med Stat, Meds/Allgs Chart Reviewed, Consent Obtained/Reviewed and Anes Risks/Benef Reviewed Patient Risk: Intermediate Procedure Risk: Intermediate Anesthetic Plan Anesthetic Plan: GA and Agree w/ Assess. and Plan Disposition: Standard PACU
[2024-05-11 11:34] LABS: Glucose, Whole Blood 240 mg/dL (60-115)
--- NOTE | 2024-05-11 11:54 | PC.NURSE ---
Dr. Francois assessed reddened area to patient right knee and stated ok to proceed, no interventions. Closed area, approx. size of 3 half dollars - all directly below knee cap.
--- NOTE | 2024-05-11 12:56 | P.BOP_ITS ---
Brief Operative Note Date of Service: 05/11/24 Pre-op diagnosis: Right knee medial meniscus tear, right knee degenerative joint disease Post-op diagnosis: same Procedure: Right knee arthroscopic partial medial meniscectomy, right knee arthroscopic chondroplasty of the undersurface of the patella as well as the medial femoral condyle Implants: none Surgeon: Cas Francois MD Anesthesia: GLMA Was an Applications Packager used for this Procedure?: No Estimated blood loss (mL): 10 Pathology: none sent Condition: stable Disposition: PACU
--- NOTE | 2024-05-11 12:57 | W.PM.OPN ---
Operative Note Operative Note Date of Service: 05/11/24 Narrative: After the patient was identified as Vincent Palmer Jr and his right knee was initialed by myself they were brought to the operating room where general anesthesia was induced by the anesthesiologist in routine fashion. The patient was given 2 g of IV Ancef for infection prophylaxis. A formal time-out was completed. The patient's right lower extremity was prepped and draped in sterile fashion. Marcaine with epinephrine was injected into the planned incision sites as well as their right knee joint. A # 11 scalpel blade was used to make an anterolateral portal 1 cm proximal to the joint line and 1 cm lateral to the patellar tendon. Blunt trocar technique was used into the suprapatellar pouch with the knee in extension. Diagnostic arthroscopy showed multiple bands of thickened plica which would be excised at the end of the procedure. There were no loose bodies or abnormalities found in either the medial or lateral gutters. There were diffuse grades 2 and 3 degenerative changes of the undersurface of the patella as well as grades 1 and 2 degenerative changes of the trochlear groove. The patient's knee was flexed to 45 degrees and a valgus force was placed upon it. The medial compartment was entered. An anteromedial portal was made 1 cm proximal to the joint line and 1 cm medial to the patellar tendon. Probing of the medial meniscus showed a radial tear of the posterior horn. A partial medial meniscectomy was performed using the arthroscopic shaver. Following the partial meniscectomy the remainder of the meniscus tissue was stable. There were diffuse grades 2 and 3 degenerative changes of the medial femoral condyle as well as diffuse grades 2 and 3 degenerative changes of the medial tibial plateau. The articular surface of the medial femoral condyle was made smooth using the arthroscopic shaver. The articular surface of the medial tibial plateau was already smooth so no chondroplasty was indicated. The patient's knee was then placed into a neutral position. There was no injury to the anterior cruciate ligament. The patient's knee was then placed into the figure of 4 position and the lateral compartment was entered. There were minimal degenerative changes of the lateral femoral condyle and lateral tibial plateau. There was no evidence of lateral meniscus tearing. The patient's knee was once again brought into extension and the suprapatellar pouch was entered. The arthroscopic shaver and the ArthroCare Wand were used to excise the thickened bands of plica. The undersurface of the patella was then made smooth using the arthroscopic shaver. The articular surface of the trochlear groove was already smooth so no chondroplasty was indicated. The knee joint was irrigated and then drained. All arthroscopic instruments were removed. The 2 portals were closed with 3-0 nylon interrupted suture. The knee joint was injected with Marcaine. Dry sterile dressing and Robby bandages were placed over the patient's knee. The patient was awoken and extubated in the operating room. They were transferred to the recovery room in stable condition.
[2024-05-11] MEDS: cefTRIAXone sodium 1 GM VIAL IVPUSH (13:10)
== END 2024-05-11 14:15 | disposition home or self-care (01) ==
PROVIDERS: PCP Internal Medicine; Visit Provider Orthopaedic Surgery
PROC: (CPT 29870; principal; 2024-05-11 12:10)
DX: S83.241A Other tear of medial meniscus, current injury, right knee, initial encounter (principal); M17.11 Unilateral primary osteoarthritis, right knee; M25.561 Pain in right knee; M67.51 Plica syndrome, right knee; M23.51 Chronic instability of knee, right knee; X50.1XXA Overexertion from prolonged static or awkward postures, initial encounter; Y93.89 Activity, other specified; Y92.9 Unspecified place or not applicable; Y99.9 Unspecified external cause status; I10 Essential (primary) hypertension; E78.00 Pure hypercholesterolemia, unspecified; D11.9 Benign neoplasm of major salivary gland, unspecified; G47.33 Obstructive sleep apnea (adult) (pediatric); E11.9 Type 2 diabetes mellitus without complications; E66.01 Morbid (severe) obesity due to excess calories; Z68.41 Body mass index [BMI] 40.0-44.9, adult; Z79.82 Long term (current) use of aspirin; Z79.84 Long term (current) use of oral hypoglycemic drugs; Z79.899 Other long term (current) drug therapy; Z99.89 Dependence on other enabling machines and devices; Z88.8 Allergy status to other drugs, medicaments and biological substances; Z98.890 Other specified postprocedural states; Z87.891 Personal history of nicotine dependence
CPT/HCPCS: 29881; 82947; J0131; J0171; J0690; J0696; J1100; J1885; J2003; J2250; J2405; J2704; J2795; J3010

== ENCOUNTER → 2024-05-11 10:29 | Outpatient (BNV) | payer MEDICARE, OTHER, SELFPAY | PROVIDERS: PCP Internal Medicine; Visit Provider Orthopaedic Surgery | DX: S83.241A Other tear of medial meniscus, current injury, right knee, initial encounter (principal) | CPT/HCPCS: 29881 ==

== ENCOUNTER 2024-05-23 08:52 | Outpatient (AMB) | payer MEDICARE, OTHER, SELFPAY ==
[2024-05-23 08:54] VITALS: BP 126/82; PULSE 95; O2SAT 90; BMI 44.0
--- NOTE | 2024-05-23 08:54 | A.OFFPC_ITS ---
Vital Signs 05/23/24 08:54 Height 5 ft 5 in Weight 264 lb 6 oz BMI 44.0 BP 126/82 Blood Pressure Location Lt brachial Position Sitting Pulse 95 Pulse Source Pulse Oximeter Pulse Oximetry (%) 90 L Oxygen Delivery Method Room Air Intake Visit Reasons: DM, hyperlipidemia, HTN Tester Operator Required: No Accompanied by: Self / Same As Patient Allergies mold Allergy (Intermediate, Verified 05/23/24 08:55) HAYFEVER metformin Adverse Reaction (Severe, Verified 05/23/24 08:55) severe fatigue; exhaustion DUST Allergy (Intermediate, Uncoded 05/23/24 08:55) HAYFEVER Tobacco use date assessed: 05/23/24 Fall risk assessment: No Falls in past year Last assessed Fall Risk: 05/23/24 Dental Screening Dental Screen Date: 05/23/24 Did you have a dental visit in the last 12 months?: Yes Did you have a dental problem in the last 6 months where you did not have access to dental care?: No Was dental information given to patient?: Patient has dentist HPI DM, hyperlipidemia, HTN HPI Details Patient comes in today for his follow up visit States that he feels well and that he is happy that his knee is feeling much better after his right knee surgery (arthroscopy and medial meniscectomy of the right knee) with Dr. Francois a couple of weeks ago He was not able to get his follow up labs done before his appointment today but will try to go and get them done tomorrow morning He denies any headaches or dizziness Denies any chest pains, no SOB No nausea/vomiting, no abdominal pain No change in bowel habits noted States that he is planning to switch his pharmacy from [facility] over to the mail order pharmacy with [facility] but he has not yet set up an account with them and is planning to do that later today States that he will call back when that is done so we can start sending his Rx refills to [facility] instead [facility] Medical History Arthritis Warthin's tumor Vitamin D deficiency Localized swelling, mass and lump, right upper limb Morbid obesity with BMI of 40.0-44.9, adult Obstructive sleep apnea Renal calculi Pure hypercholesterolemia Benign essential hypertension Hx of renal calculi HTN (hypertension) Diabetes Adenomatous colon polyp Surgical History (Updated 05/23/24 @ 09:17 by Misha Lynne MD) Status post medial meniscectomy of right knee S/P right knee arthroscopy Hx of appendectomy Hx of cystoscopy Hx of cystoscopy H/O lithotripsy Hx of colonoscopy (~03/15/17) History of parotidectomy Family History Father CVD (cardiovascular disease) Mother Cancer Colon cancer Social History Household Members: Spouse Housing: House Are you a primary medical care manager to a significant other at home: No Do you presently have visiting nurse or other home services: No Alcohol intake: current Alcohol intake frequency: holidays/special occasions only Patient Tobacco Use Status: Former Tobacco user Tobacco use type: Cigarette Years Smoked: 30 e-Cigarette/Vaping Use: Never Used Second Hand Smoke Exposure: No service: No Current occupational status: employed Current occupation: [employer] Cognitive needs: No Hearing needs: No Vision needs: No Questionnaire PHQ-9 Over the last 2 weeks, how often have you been bothered by any of the following problems? 1. Little interest or pleasure in doing things: not at all 2. Feeling down, depressed, or hopeless: not at all 3. Trouble falling or staying asleep, or sleeping too much: not at all 4. Feeling tired or having little energy: not at all 5. Poor appetite or overeating: not at all 6. Feeling bad about yourself - or that you are a failure or have let yourself or your family down: not at all 7. Trouble concentrating on things, such as reading the newspaper or watching television: not at all 8. Moving or speaking so slowly that other people could have noticed. Or the opposite - being so fidgety or restless that you have been moving around a lot more than usual: not at all 9. Thoughts that you would be better off or of hurting yourself in some way: not at all Total score: 0 Depression Screening Interpretation: Negative Depression Screening Done: Yes 73611 - PHQ-9 Billing: Yes Source: Developed by Drs. Jarad Vee, Stephany Nino, Ebenezer Ramirez and colleagues, with an educational dinh from [employer]. Thrive Questionnaire Date Thrive assessed: 05/23/24 I am a: Patient What is your living situation today?: I have a steady place to live Within the past 12 months, did the food you bought not last and you didn't have the money to get more?: Never true Within the past 12 months, did you worry whether your food would run out before you got money to buy more?: Never true Do you have trouble paying for medicines?: No Do you have trouble getting transportation to medical appointments?: No Do you have trouble paying your heating and electricity bill?: No Do you have trouble taking care of your child, family member or friend?: No Do you have trouble with day-to-day activities such as bathing, preparing meals, shopping, managing finances, etc.?: No Are you currently unemployed and looking for a job?: Yes Are you interested in more education?: No Please select the resources that you would like help with: None Currently or been in a relationship where the following occur: No concerns reported THRIVE Score: 0 AUDIT C Alcohol Use Questionnaire (AUDIT-C) 1. How often do you have a drink containing alcohol?: Monthly or less 2. How many drinks containing alcohol do you have on a typical day when you are drinking?: 1 or 2 3. How often do you have six or more drinks on one occasion?: Never Total Score: 1 Score Reviewed/Action Taken: Yes JASPREET-7 AMB Questionnaire JASPREET-7 Date JASPREET - 7 assessed: 05/12/23 Source: Developed by Drs. Jarad Vee, Ebenezer Hoyt and colleagues, with an educational dinh from [employer]. Review of Systems Const Denies chills, Denies fatigue, Denies fever(s) and Denies headache(s) ENT Denies dysphagia, Denies dizziness, Denies otalgia, Denies headache(s), Denies neck pain, Denies odynophagia and Denies sore throat Card Denies chest pain, Denies palpitations and Denies dyspnea Resp Denies chest congestion, Denies cough and Denies dyspnea GI Denies abdominal pain, Denies constipation, Denies dysphagia, Denies diarrhea, Denies nausea, Denies odynophagia and Denies vomiting Denies dysuria, Denies nocturia and Denies urinary frequency Musc Denies back pain, Reports arthralgias (right knee - is feeling much better after his surgery about 2 weeks ago) and Denies neck pain Skin/Breast Denies rash Neuro Denies dizziness and Denies headache(s) Endo Denies fatigue and Denies palpitations Physical exam (Primary Care) Vital Signs: Last Vital Signs Pulse 95 05/23/24 08:54 BP 126/82 05/23/24 08:54 Pulse Ox 90 L 05/23/24 08:54 Oxygen Delivery Method Room Air 05/23/24 08:54 BMI result Body Mass Index 44.0 Tobacco/Smoking Status: Tobacco use Status Tobacco use date assessed 05/23/24 05/23/24 09:01 Patient Tobacco Use Status Former Tobacco user 05/23/24 09:01 Tobacco use type Cigarette 05/23/24 09:01 e-Cigarette/Vaping Use Never Used 05/23/24 09:01 Depression Screening Interpretation: Negative Thrive Assessment: Date of Thrive Assessment Date Thrive assessed 05/12/23 05/23/24 09:01 Currently or been in a relationship where the following occur: No concerns reported Const General: no acute distress and alert HENMT Ears: TM's normal bilaterally and EAC's normal Throat: Yes posterior oropharynx normal and Yes tonsils normal Neck Neck: Yes supple and No lymphadenopathy Thyroid: Thyroid normal Resp Auscultation: clear to auscultation bilaterally, no rales and no wheezes Cardio Rate: regular rate Rhythm: regular rhythm Heart sounds: no murmurs GI Palpation (GI): Soft to palpation and nontender Auscultation: normal bowel sounds General: Yes no CVA tenderness Back/Spine/Pelvis Back: no CVA tenderness Thoracic/Lumbar Spine: No lumbar spinal tenderness Skin Rashes: no rashes Extrem General: Yes no clubbing, cyanosis or edema Right lower extremity: knee Details: tenderness Location: of the medial joint line; no swelling Coding Level of Care Code Est Pt Level 4 (05316) Diagnoses Type 2 diabetes mellitus with hyperglycemia, without long-term current use of insulin E11.65 Diabetes mellitus type: type 2 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 mellitus 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 counterman insulin use: without long-term use Diabetes mellitus complication status: with hyperglycemia Benign essential hypertension I10 Pure hypercholesterolemia E78.00 Obstructive sleep apnea G47.33 Vitamin D deficiency E55.9 Renal calculi N20.0 Bilateral primary osteoarthritis of knee M17.0 Morbid obesity with BMI of 40.0-44.9, adult E66.01; Z68.41 Additional Codes PHQ-9 - 76036 - PHQ-9 Billing: Yes ([id number]) Assessment & Plan Assessment & Plan (1) Diabetes mellitus: Code(s): E11.9 - Type 2 diabetes mellitus without complications Category: Medical Qualifiers: Diabetes mellitus type: type 2 Diabetes mellitus long-term insulin use: without parts counterman use Diabetes mellitus complication status: with hyperglycemia Qualified Code(s): E11.65 - Type 2 diabetes mellitus with hyperglycemia Plan: Patient's HgbA1c improved slightly to 7.6% (from 7.8%) when he last had it checked a few months ago - goal is < 7.0% He was not able to get his follow up labs done yet Reinforced diabetic diet - he is still on his [place] diet, which he feels has helped him a lot Continue Glipizide ER 5 mg Q AM and Januvia 100 mg QD for now - will see how his current glycemic control is when he gets his follow up labs done tomorrow (2) Benign essential hypertension: Code(s): I10 - Essential (primary) hypertension Category: Medical Plan: Reinforced low sodium diet - goal is systolic BP of at least 130 to 140 mm or less Continue Lisinopril 40 mg QD, HCTZ 25 mg QD in AM and Amlodipine 5 mg QD (3) Pure hypercholesterolemia: Code(s): E78.00 - Pure hypercholesterolemia, unspecified Category: Medical Plan: Patient was not able to get his follow up labs done prior to his appointment today - states that he will try to get them done tomorrow morning Reinforced low cholesterol diet Continue Castella-3 capsules 340 mg QD and Atorvastatin 10 mg QD Will recheck his labs and fasting lipids again in 4 months for follow up (4) Obstructive sleep apnea: Comment: uses CPAP nightly Code(s): G47.33 - Obstructive sleep apnea (adult) (pediatric) Category: Medical Plan: Patient continues to use his CPAP device regularly/daily when sleeping at night - feels that it is still helping him a lot (5) Vitamin D deficiency: Code(s): E55.9 - Vitamin D deficiency, unspecified Category: Medical Plan: Corrected - continue Vitamin D3 2000 units QD (6) Renal calculi: Code(s): N20.0 - Calculus of kidney Category: Medical Plan: The composition of his kidney stones in the past were mostly calcium oxalate He has been asymptomatic lately and is again encouraged to continue to increase his oral fluid intake He had a repeat renal US done last year that revealed (+) bilateral non- obstructing renal stones measuring up to 7 mm on the right and 2 mm on the left with some new from prior. Left renal pelviectasis without rudi hydronephrosis Follow up with urology (Dr. Mckenzie) as scheduled (7) Bilateral primary osteoarthritis of knee: Code(s): M17.0 - Bilateral primary osteoarthritis of knee Category: Medical Plan: MRI of the right knee done last year (02/2023) revealed (+) complex tearing of the posterior medial meniscal body with a near-complete radial component as well as a superiorly displaced meniscal flap. Complex tearing extends along the inner margin and tibial articular surface of the posterior horn and root. There is also moderate medial as well as mild patellofemoral compartment osteoarthritis and moderate joint effusion and trace Stacy's cyst Patient underwent right knee arthroscopic surgery with Dr. Francois last year in March 2023 with (+) relief of symptoms but as his knee has been bothering him a lot again recently, he eventually underwent repeat arthroscopic surgery as well as successful partial right medial meniscectomy a couple of weeks ago on 05/11/2024 - patient states that his right knee currently is feeling a lot better Follow up with orthopedics as scheduled (8) Morbid obesity with BMI of 40.0-44.9, adult: Code(s): E66.01 - Morbid (severe) obesity due to excess calories; Z68.41 - Body mass index [BMI] 40.0-44.9, adult Category: Medical Plan: Reinforced diet/exercise as tolerated/lose weight Plan Follow up in 4 months Orders: Orders Complete Blood Count Auto Diff 4 Months D64.9 - Anemia, unspecified Lipid Panel 4 Months E78.00 - Pure hypercholesterolemia, unspecified Comprehensive [place]. Panel Fast 4 Months E78.00 - Pure hypercholesterolemia, unspecified Microalbumin, Random (w Creat) 4 Months E11.9 - Type 2 diabetes mellitus without complications UA CC w/rflx Micro + Cult 4 Months R30.0 - Dysuria Hemoglobin A1c 4 Months E11.9 - Type 2 diabetes mellitus without complications TSH reflex Free T4 4 Months E78.00 - Pure hypercholesterolemia, unspecified Vitamin D 25-OH Total 4 Months E55.9 - Vitamin D deficiency, unspecified
== END 2024-05-23 09:30 | disposition home or self-care (01) ==
PROVIDERS: PCP Internal Medicine; Visit Provider Internal Medicine
DX: E11.65 Type 2 diabetes mellitus with hyperglycemia (principal); E66.01 Morbid (severe) obesity due to excess calories; Z68.41 Body mass index [BMI] 40.0-44.9, adult; I10 Essential (primary) hypertension; E78.00 Pure hypercholesterolemia, unspecified; G47.33 Obstructive sleep apnea (adult) (pediatric); E55.9 Vitamin D deficiency, unspecified; N20.0 Calculus of kidney; M17.0 Bilateral primary osteoarthritis of knee

== ENCOUNTER → 2024-05-23 08:52 | Outpatient (BNVA) | payer MEDICARE, OTHER, SELFPAY | PROVIDERS: PCP Internal Medicine; Visit Provider Internal Medicine | DX: E11.65 Type 2 diabetes mellitus with hyperglycemia (principal); E78.00 Pure hypercholesterolemia, unspecified; E55.9 Vitamin D deficiency, unspecified; I10 Essential (primary) hypertension; G47.33 Obstructive sleep apnea (adult) (pediatric); N20.0 Calculus of kidney; M17.0 Bilateral primary osteoarthritis of knee; E66.01 Morbid (severe) obesity due to excess calories; Z68.41 Body mass index [BMI] 40.0-44.9, adult; Z71.3 Dietary counseling and surveillance | CPT/HCPCS: 96127; 99212 ==

== ENCOUNTER → 2024-05-24 12:54 | Outpatient (BNVA) | payer MEDICARE, OTHER, SELFPAY | PROVIDERS: PCP Internal Medicine; Visit Provider Physician Assistant | DX: S83.241D Other tear of medial meniscus, current injury, right knee, subsequent encounter (principal); X58.XXXD Exposure to other specified factors, subsequent encounter; Z98.890 Other specified postprocedural states | CPT/HCPCS: 99212 ==

== ENCOUNTER 2024-06-19 06:39 | Outpatient (REF) | payer MEDICARE, OTHER, SELFPAY ==
[2024-06-19 07:36] LABS: Basophils Absolute Auto 0.1 X10*3/uL (0.0-0.2); Basophils Percent Auto 1.1 % (0-2); Eosinophils Absolute Auto 0.3 X10*3/uL (0.0-0.4); Eosinophils Percent Auto 5.7 % (0-4); Hematocrit 45.9 % (42.0-52.0); Hemoglobin 15.6 g/dl (14.0-18.0); Imm Gran Abs Auto 0.03 X10*3/uL (0.00-0.03); Imm Gran Pct Auto 0.7 % (0.0-0.4); Lymphocytes Percent Auto 44.1 % (20-40); MANUAL DIFF FLAG SCAN; Mean Corpuscular Hemoglobin 29.7 pg (27.0-33.0); Mean Corpuscular Volume 87.4 fL (80.0-98.0); Mean Platelet Volume 9.9 fL (9.4-12.4); Monocytes Absolute Auto 0.9 X10*3/uL (0.1-1.2); Monocytes Percent Auto 20.6 % (2-11); Neutrophils Absolute Auto 1.3 x10*3/uL (2.0-8.3); Neutrophils Percent Auto 27.8 % (45-73); Platelet Count 268 X10*3/uL (160-400); Red Blood Count 5.25 X10*6/uL (4.60-5.80); Red Cell Distribution Width 13.3 % (11.0-16.0); SCAN SMEAR FLAG 1; White Blood Count 4.6 X10*3/uL (4.8-10.8)
[2024-06-19 07:44] LABS: Estimated Average Glucose 192 mg/dL; Hemoglobin A1C 270.1518 umol/L; Hemoglobin A1c % 8.3 % (<6.0); Total Hemoglobin (HGBA1C) 4006.1809 umol/L
[2024-06-19 07:48] LABS: Appearance Urine Clear; Color Urine Yellow; Glucose Urine UA >=1000 mg/dL (Negative); Leukocyte Esterase Urine Negative (Negative); Nitrite Urine Negative (Negative); Specific Gravity - Urine >= 1.030 (1.005-1.025); UMIC TRIGGER UACC YES; Urine Blood Negative (Negative); Urine Ketones Negative (Negative); Urine Protein Negative (Neg-Trace)
[2024-06-19 07:59] LABS: SLIDE REVIEW VERIFIED
[2024-06-19 08:02] LABS: Bacteria Urine None Seen (None Seen); Calcium Oxalate Crystals Urine Present; Hyaline Casts Urine 0-2 /LPF (0-2); RBC Urine 0-2 /HPF (0-2); Squamous Epithelial Cell Urine 0-2 /HPF (0-2); WBC Urine 0-5 /HPF (0-5)
[2024-06-19 08:18] LABS: Alanine Aminotransferase 49 U/L (0-40); Albumin Level 3.8 g/dL (3.5-5.0); Alkaline Phosphatase 77 U/L (39-117); Anion Gap 14 (12-20); Aspartate Amino Transferase 36 U/L (5-37); Bilirubin Total 0.4 mg/dL (0.0-1.0); Blood Urea Nitrogen 12 mg/dL (9-16); Calcium 8.7 mg/dL (8.4-10.2); Carbon Dioxide 24 mmol/L (22-29); Chloride 107 mmol/L (96-108); Cholesterol 160 mg/dL (<200); Estimated Glomerular Filt Rate > 60; Glucose Fasting 237 mg/dL (60-99); HDL Cholesterol 34 mg/dL (>40); LDL Cholesterol Calculated 59 mg/dL (<100); Potassium 3.7 mmol/L (3.3-5.1); Sodium 141 mmol/L (135-145); Total Protein 7.3 g/dL (6.5-8.0); Triglycerides 336 mg/dL (<150)
[2024-06-19 08:37] LABS: Vitamin D 25-OH Total 94.3 ng/mL (>30)
[2024-06-19 08:40] LABS: Folate 5.4 ng/mL (> or = 4.0); Vitamin B12 498 pg/mL (200-900)
== END 2024-06-19 06:40 | disposition home or self-care (01) ==
LOC: HO.LAB 06:39
PROVIDERS: PCP Internal Medicine; Visit Provider Internal Medicine
DX: D64.9 Anemia, unspecified (principal); E53.8 Deficiency of other specified B group vitamins; E11.9 Type 2 diabetes mellitus without complications; E78.00 Pure hypercholesterolemia, unspecified; E55.9 Vitamin D deficiency, unspecified
CPT/HCPCS: 36415; 80053; 80061; 81001; 82306; 82607; 82746; 83036; 85025

== ENCOUNTER → 2024-07-02 14:40 | Outpatient (BNVA) | payer SELFPAY | PROVIDERS: PCP Internal Medicine; Visit Provider Physician Assistant Medical | DX: Z02.79 Encounter for issue of other medical certificate (principal) ==

== ENCOUNTER 2024-07-10 09:36 | Outpatient (REF) | payer MEDICARE, SELFPAY ==
--- NOTE | ~2024-07-10 | XR_ITS ---
EXAMINATION: XR ABDOMEN 1 VIEW (KUB) HISTORY: N20.0 - Calculus of kidney COMPARISON: Comparison is made with the prior examination dated 12/31/2015. FINDINGS: Two supine views of the abdomen are submitted. The bowel gas pattern is unremarkable, without evidence of mechanical obstruction. There are multiple calcifications overlying the lower poles of both kidneys measuring up to 3 mm. There are multiple vascular calcifications in the pelvis. There are no abnormal soft tissue masses. The bones are intact. XR/XR KUB IMPRESSION: Multiple calcifications overlying the lower poles of both kidneys measuring up to 3 mm in size. Electronically signed by: Jarad Brown MD 07/10/2024 01:39 PM EDT
== END 2024-07-10 09:37 | disposition home or self-care (01) ==
LOC: HO.XRAY 09:36
PROVIDERS: PCP Internal Medicine; Visit Provider Urology
DX: N20.0 Calculus of kidney (principal)
CPT/HCPCS: 74018

== ENCOUNTER → 2024-07-10 09:52 | Outpatient (BNV) | payer MEDICARE, SELFPAY | PROVIDERS: PCP Internal Medicine; Visit Provider Radiology Diagnostic Radiology | DX: N20.0 Calculus of kidney (principal) | CPT/HCPCS: 74018 ==

== ENCOUNTER 2024-07-12 08:38 | Outpatient (AMB) | payer MEDICARE, OTHER, SELFPAY ==
--- NOTE | 2024-07-12 08:43 | MHC.OFFVIS ---
Vital Signs 07/12/24 08:45 Height 5 ft 5 in Weight 264 lb BMI 43.9 Intake Visit Reasons: PO RT knee 05/11/24 Intake Note: Vincent is a 69 year old male who presents today post-operatively after undergoing right knee arthroscopy on 05/11/24. He reports mild discomfort in his right knee. He continues with his activities as tolerated. He does not take any medicines for his discomfort. Allergies mold Allergy (Intermediate, Verified 07/12/24 08:45) HAYFEVER metformin Adverse Reaction (Severe, Verified 07/12/24 08:45) severe fatigue; exhaustion DUST Allergy (Intermediate, Uncoded 07/12/24 08:45) HAYFEVER Medication List - Last Reconciled 07/12/24 by Cas Francois MD amlodipine 5 mg PO DAILY 90 days aspirin 81 mg PO DAILY atorvastatin 10 mg PO BEDTIME 90 days clotrimazole-betamethasone 1-0.05 % 1 appl topical BID 2 weeks [CPAP DEVICE RESMED full face MASK MEDIUM As directed start 4-16 cm H2O humidified AIR] glipizide ER 5 mg PO QAM 90 days hydrochlorothiazide 25 mg PO DAILY 90 days Januvia (sitagliptin phosphate) 100 mg PO DAILY 90 days NS lisinopril 40 mg PO DAILY 90 days potassium chloride ER 20 mEq PO DAILY 90 days REPLACED BY [facility] Medical History Arthritis Warthin's tumor Vitamin D deficiency Localized swelling, mass and lump, right upper limb Morbid obesity with BMI of 40.0-44.9, adult Obstructive sleep apnea Renal calculi Pure hypercholesterolemia Benign essential hypertension Hx of renal calculi HTN (hypertension) Diabetes Adenomatous colon polyp Surgical History (Updated 05/23/24 @ 09:17 by Misha Lynne MD) Status post medial meniscectomy of right knee S/P right knee arthroscopy Hx of appendectomy Hx of cystoscopy Hx of cystoscopy H/O lithotripsy Hx of colonoscopy (~03/15/17) History of parotidectomy Family History Father CVD (cardiovascular disease) Mother Cancer Colon cancer Social History Household Members: Spouse Housing: House Are you a primary patient care nursing assistant to a significant other at home: No Do you presently have visiting nurse or other home services: No Alcohol intake: current Alcohol intake frequency: holidays/special occasions only Patient Tobacco Use Status: Former Tobacco user Tobacco use type: Cigarette Years Smoked: 30 e-Cigarette/Vaping Use: Never Used Second Hand Smoke Exposure: No service: No Current occupational status: employed 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 Palmer continues to do well after undergoing right knee arthroscopic surgery on 05/11/2024. He will continue to progress to activities as tolerated. He will follow up with me on an as-needed basis should his symptoms worsen in any way. Feel free to call me at any time should questions regarding his orthopedic management arise. Coding Level of Care Code Global (70864) Diagnoses Right knee pain, unspecified chronicity M25.561 Chronicity: unspecified
[2024-07-12 08:45] VITALS: BMI 43.9
== END 2024-07-12 08:51 | disposition home or self-care (01) ==
LOC: HO.HOS 08:39
PROVIDERS: PCP Internal Medicine; Visit Provider Orthopaedic Surgery
DX: M25.561 Pain in right knee (principal)
CPT/HCPCS: 99024

== ENCOUNTER → 2024-07-12 08:38 | Outpatient (BNVA) | payer MEDICARE, OTHER, SELFPAY | PROVIDERS: PCP Internal Medicine; Visit Provider Orthopaedic Surgery | DX: M25.561 Pain in right knee (principal); Z09 Encounter for follow-up examination after completed treatment for conditions other than malignant neoplasm; Z98.890 Other specified postprocedural states | CPT/HCPCS: 99212 ==

== ENCOUNTER 2024-08-15 11:10 | Outpatient (AMB) | payer MEDICARE, SELFPAY ==
--- NOTE | 2024-08-15 11:31 | MHC.OFFVIS ---
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 He is a patient of Dr Lynne. He is seen for the following urologic conditions. - nephrolithiasis KUB Small stones 3 mL Remains asymptomatic Continue potassium citrate Six-month follow-up with imaging Nephrolithiasis/Urolithiasis:? No imaging done recently Will plan on repeating in 6 months Should remain on potassium citrate Concomitant diagnosis includes diabetes ? They are here for?further evaluation of nephrolithiasis ?- stone staying stable ? Urolithiasis was diagnosed?10/2015.? The patient previously had kidney stones whose composition w?calcium oxalate - monohydrate, calcium phosphate - brushite ?06/07 CaOxMono 75%.? Laboratory investigations include?pending.? 24 Hour urine evaluation?01/31 - Low Urine volume < 2.0 liters, Hypercalciuria (> 200mg), High oxalate > 30mg ?09/01 , Good Volume > 2.00 L, High Sodium (> 100mEq), High oxalate > 30mg, Hypercalciuria (> 200mg) ?07/03 , Good Volume > 2.00 L, Hypercalciuria (> 200mg), High Sodium (> 100mEq), High oxalate > 30mg, High Citrate ?02/02 , Good Volume > 2.00 L, High Citrate, High oxalate > 30mg, High Sodium (> 100mEq), Hypercalciuria (> 200mg ?08/04 , Good Volume > 2.00 L, Hypercalciuria (> 200mg) 282 ?09/04 good volume, high oxalate high sodium ? Prior treatment(s) include?01/31 , right, ureteroscopy ?09/01 , medical management, with allopurinol, , with thiazides ?07/03 indapamide, sildenafil ?06/07 [facility] right side ? Prior imaging includes?a CT (computed tomography) scan of the abdomen/pelvis (stone protocol) multiple right renal stones. Largest is 9 x 21 mm. Smaller right lower pole renal stones largest is 4 x 5 mm. Mild right hydronephrosis. No stone seen in the ureter. Left kidney no stone seen. ?02/01 - , a renal ultrasound - residual 5mm fragments ?07/03 , a renal ultrasound, showing radiodense stone(s), bilaterally ?08/03 , a CT (computed tomography) scan of the abdomen/pelvis (stone protocol), showing radiodense stone(s) small bilateral ?02/02 , a renal ultrasound right 5mm x3, left punctate ?08/04 , a renal ultrasound right 5mm x 3, left small ?02/03 , a renal ultrasound right multiple stones ?08/05 , a renal ultrasound, 4 mm right, nothing left - 04/06 renal ultrasound no stones seen - 01/07 renal ultrasound 4 mm right, no stone on left - 07/09 renal ultrasound 7 mm stone side - 01/09 renal ultrasound multiple small stones right side, 2 small stones left side - 07/10 KUB 3 MM STONES BILATERAL ? UA today shows?specific gravity within normal range suggestive of adequate hydration today.? Current therapeutic plan will be?indapamide 2.5, keep up fluids.? Risk, benefits and alternatives to therapy were discussed regarding the use and timing of prescribed medications. Pertinent side effects and interactions for medications were highlighted and adherence emphasized. [facility] Medical History Arthritis Warthin's tumor Vitamin D deficiency Localized swelling, mass and lump, right upper limb Morbid obesity with BMI of 40.0-44.9, adult Obstructive sleep apnea Renal calculi Pure hypercholesterolemia Benign essential hypertension Hx of renal calculi HTN (hypertension) Diabetes Adenomatous colon polyp Surgical History (Updated 05/23/24 @ 09:17 by Misha Lynne MD) Status post medial meniscectomy of right knee S/P right knee arthroscopy Hx of appendectomy Hx of cystoscopy Hx of cystoscopy H/O lithotripsy Hx of colonoscopy (~03/15/17) History of parotidectomy Family History Father CVD (cardiovascular disease) Mother Cancer Colon cancer Social History Household Members: Spouse Housing: House Are you a primary career education teacher to a significant other at home: No Do you presently have visiting nurse or other home services: No Alcohol intake: current Alcohol intake frequency: holidays/special occasions only Patient Tobacco Use Status: Former Tobacco user Tobacco use type: Cigarette Years Smoked: 30 e-Cigarette/Vaping Use: Never Used Second Hand Smoke Exposure: No service: No Current occupational status: employed 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 Cognitive needs: No Hearing needs: No Vision needs: No Review of Systems Const Denies chills and Denies fever(s) Card Reports no additional complaints and Denies syncope Resp Denies cough GI Denies abdominal pain and Denies heartburn Reports as per HPI and Denies change in libido Neuro Denies syncope Psych Denies change in libido Endo Denies change in libido Physical Exam Const General: cooperative, healthy appearing, comfortable and no acute distress Orientation/consciousness: patient oriented x3 HEENT Face and sinus: Yes normal facial exam Mouth: moist mucous membranes Neck Neck: Yes normal visual inspection, Yes full ROM and Yes trachea midline Chest Chest palpation & inspection: normal inspection of the chest Resp Effort & Inspection: normal respiratory effort, able to speak in complete sentences and no respiratory distress GI Inspection: Yes normal to inspection Back/Spine/Pelvis Cervical Spine: normal cervical lordosis Thoracic/Lumbar Spine: thoracic and lumbar spine normal to inspection Skin General skin exam: no rashes or lesions noted Neuro General: patient oriented x3, gait normal, tone normal and moves all extremities Extrem General: Yes normal to inspection and Yes capillary refill normal Assessment & Plan Assessment & Plan (1) Renal calculi: Code(s): N20.0 - Calculus of kidney Category: Medical Plan Six-month follow-up imaging Testosterone since diabetic Orders: Orders XR KUB 6 Months N20.0 - Calculus of kidney Testosterone, Total 6 Months E11.9 - Type 2 diabetes mellitus without complications Patient Instructions: This note is constructed using voice recognition software. 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 Imaging studies, laboratory and physical exam results were discussed and reviewed in detail. No major barriers to patient understanding were identified. An opportunity to ask questions regarding the treatment plan was provided. All questions were answered. The patient expressed understanding and agreement with the above treatment plan. The patient is aware they should contact our office by phone for worsening of their current condition or the appearance of new urologic symptoms. Compliance is encouraged with any medications and followup testing that is ordered. It is a privilege to participate in the urologic care of your patient. If you have any questions or concerns regarding treatment for the above conditions, or other urologic issues, please do not hesitate to contact me. The office telephone contact is [phone]. Sincerely, Dr Magdi Mckenzie MD, [facility] - Urology Compassionate Specialist Care for the Genitourinary System Coding Level of Care Code Est Pt Level 3 (74804) Diagnoses Renal calculi N20.0
== END 2024-08-15 15:02 | disposition home or self-care (01) ==
PROVIDERS: PCP Internal Medicine; Visit Provider Urology
DX: N20.0 Calculus of kidney (principal)
CPT/HCPCS: 99213

== ENCOUNTER → 2024-08-15 11:10 | Outpatient (BNVA) | payer MEDICARE, OTHER, SELFPAY | PROVIDERS: PCP Internal Medicine; Visit Provider Urology | DX: N20.0 Calculus of kidney (principal) | CPT/HCPCS: 99212 ==

== ENCOUNTER 2024-10-18 14:25 | Outpatient (AMB) | payer MEDICARE, SELFPAY ==
--- NOTE | 2024-10-18 14:26 | MHC.PC.OV ---
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: No Accompanied by: Self / Same As Patient Allergies mold Allergy (Intermediate, Verified 10/18/24 14:48) HAYFEVER metformin Adverse Reaction (Severe, Verified 10/18/24 14:48) severe fatigue; exhaustion DUST Allergy (Intermediate, Uncoded 10/18/24 14:48) HAYFEVER Medication List - Last Reconciled 10/18/24 by Misha Lynne MD amlodipine 5 mg PO DAILY 90 days aspirin 81 mg PO DAILY atorvastatin 10 mg PO BEDTIME 90 days clotrimazole-betamethasone 1-0.05 % 1 appl topical BID 2 weeks [CPAP DEVICE RESMED full face MASK MEDIUM As directed start 4-16 cm H2O humidified AIR] glipizide ER 5 mg PO QAM 90 days hydrochlorothiazide 25 mg PO DAILY 90 days Januvia (sitagliptin phosphate) 100 mg PO DAILY 90 days NS lisinopril 40 mg PO DAILY 90 days potassium chloride ER 20 mEq PO DAILY 90 days Tobacco use date assessed: 10/18/24 Fall risk assessment: No Falls in past year Last assessed Fall Risk: 10/18/24 Dental Screening Dental Screen Date: 10/18/24 Did you have a dental visit in the last 12 months?: No Did you have a dental problem in the last 6 months where you did not have access to dental care?: No Was dental information given to patient?: No HPI 4 month f/u HPI Details Patient comes in today for his follow up visit States that he feels okay He denies any headaches or dizziness Denies any chest pains, no increased SOB No nausea/vomiting, no abdominal pain No change in bowel habits noted Needs his Januvia Rx refilled and would like to have this sent over to his mail order pharmacy ([facility]) He was not able to get his follow up labs done again prior ro his appointment today; he did get his labs done back in June 2024, a few weeks after his last [facility] Medical History Arthritis Warthin's tumor Vitamin D deficiency Localized swelling, mass and lump, right upper limb Morbid obesity with BMI of 40.0-44.9, adult Obstructive sleep apnea Renal calculi Pure hypercholesterolemia Benign essential hypertension Hx of renal calculi HTN (hypertension) Diabetes Adenomatous colon polyp Surgical History Status post medial meniscectomy of right knee S/P right knee arthroscopy Hx of appendectomy Hx of cystoscopy Hx of cystoscopy H/O lithotripsy Hx of colonoscopy (~03/15/17) History of parotidectomy Family History Father CVD (cardiovascular disease) Mother Cancer Colon cancer Social History Household Members: Spouse Housing: House Are you a primary infant childcare provider to a significant other at home: No Do you presently have visiting nurse or other home services: No Alcohol intake: current Alcohol intake frequency: holidays/special occasions only Patient Tobacco Use Status: Former Tobacco user Tobacco use type: Cigarette Years Smoked: 30 e-Cigarette/Vaping Use: Never Used Second Hand Smoke Exposure: No service: No Current occupational status: employed Current occupation: [employer] Cognitive needs: No Hearing needs: No Vision needs: No Questionnaire PHQ-9 Over the last 2 weeks, how often have you been bothered by any of the following problems? 1. Little interest or pleasure in doing things: not at all 2. Feeling down, depressed, or hopeless: not at all 3. Trouble falling or staying asleep, or sleeping too much: not at all 4. Feeling tired or having little energy: not at all 5. Poor appetite or overeating: not at all 6. Feeling bad about yourself - or that you are a failure or have let yourself or your family down: not at all 7. Trouble concentrating on things, such as reading the newspaper or watching television: not at all 8. Moving or speaking so slowly that other people could have noticed. Or the opposite - being so fidgety or restless that you have been moving around a lot more than usual: not at all 9. Thoughts that you would be better off or of hurting yourself in some way: not at all Total score: 0 Depression Screening Interpretation: Negative Depression Screening Done: Yes 18413 - PHQ-9 Billing: Yes Source: Developed by Drs. Jarad Vee, Stephany Nino, Ebenezer Ramirez and colleagues, with an educational dinh from [employer]. Thrive Questionnaire Date Thrive assessed: 10/18/24 I am a: Patient What is your living situation today?: I have a steady place to live Within the past 12 months, did the food you bought not last and you didn't have the money to get more?: Never true Within the past 12 months, did you worry whether your food would run out before you got money to buy more?: Never true Do you have trouble paying for medicines?: No Do you have trouble getting transportation to medical appointments?: No Do you have trouble paying your heating and electricity bill?: No Do you have trouble taking care of your child, family member or friend?: No Do you have trouble with day-to-day activities such as bathing, preparing meals, shopping, managing finances, etc.?: No Are you currently unemployed and looking for a job?: Yes Are you interested in more education?: No Please select the resources that you would like help with: None Currently or been in a relationship where the following occur: No concerns reported THRIVE Score: 0 AUDIT C Alcohol Use Questionnaire (AUDIT-C) 1. How often do you have a drink containing alcohol?: 2-4 times a month 2. How many drinks containing alcohol do you have on a typical day when you are drinking?: 1 or 2 3. How often do you have six or more drinks on one occasion?: Never Total Score: 2 Score Reviewed/Action Taken: Yes JASPREET-7 AMB Questionnaire JASPREET-7 Date JASPREET - 7 assessed: 10/18/24 Feeling nervous, anxious, or on edge: 0 = Not at all Not being able to stop or control worryin = Not at all Worrying too much about different things: 0 = Not at all Trouble relaxin = Not at all Being so restless that it is hard to sit still: 0 = Not at all Becoming easily annoyed or irritable: 0 = Not at all Feeling afraid as if something awful might happen: 0 = Not at all Total JASPREET-7 score (0-4 normal; 5-9 mild; 10-14 moderate; 15-21 severe): 0 Source: Developed by Drs. Jarad Vee, Stephany Nino, Ebenezer Ramirez and colleagues, with an educational dinh from [employer]. Review of Systems Const Denies chills, Denies fatigue, Denies fever(s) and Denies headache(s) ENT Denies dysphagia, Denies dizziness, Denies otalgia, Denies headache(s), Denies neck pain, Denies odynophagia and Denies sore throat Card Denies chest pain, Denies palpitations and Denies dyspnea Resp Denies chest congestion, Denies cough and Denies dyspnea GI Denies abdominal pain, Denies constipation, Denies dysphagia, Denies diarrhea, Denies nausea, Denies odynophagia and Denies vomiting Denies dysuria, Denies nocturia and Denies urinary frequency Musc Denies back pain, Reports arthralgias (right knee - feeling much better after his surgery a few months ago) and Denies neck pain Skin/Breast Denies rash Neuro Denies dizziness and Denies headache(s) Endo Denies fatigue and Denies palpitations Physical exam (Primary Care) Vital Signs: Last Vital Signs Pulse 97 10/18/24 14:27 BP 112/72 10/18/24 14:27 Pulse Ox 97 10/18/24 14:27 Oxygen Delivery Method Room Air 10/18/24 14:27 BMI result Body Mass Index 44.4 Tobacco/Smoking Status: Tobacco use Status Tobacco use date assessed 10/18/24 10/18/24 14:30 Patient Tobacco Use Status Former Tobacco user 10/18/24 14:30 Tobacco use type Cigarette 10/18/24 14:30 e-Cigarette/Vaping Use Never Used 10/18/24 14:30 PHQ-9: PHQ-9 Score PHQ-9: Total score 0 10/18/24 14:47 Depression Screening Interpretation: Negative Thrive Assessment: Date of Thrive Assessment Date Thrive assessed 10/18/24 10/18/24 14:30 Currently or been in a relationship where the following occur: No concerns reported Const General: no acute distress and alert HENMT Ears: TM's normal bilaterally and EAC's normal Throat: Yes posterior oropharynx normal and Yes tonsils normal Neck Neck: Yes supple and No lymphadenopathy Thyroid: Thyroid normal Resp Auscultation: clear to auscultation bilaterally, no rales and no wheezes Cardio Rate: regular rate Rhythm: regular rhythm Heart sounds: no murmurs GI Palpation (GI): Soft to palpation and nontender Auscultation: normal bowel sounds General: Yes no CVA tenderness Back/Spine/Pelvis Back: no CVA tenderness Thoracic/Lumbar Spine: No lumbar spinal tenderness Skin Rashes: no rashes Extrem General: Yes no clubbing, cyanosis or edema Results AMB Hemoglobin A1c AMB Hemoglobin A1c 9.2 % Last Edit by CHASE Sauceda on 10/18/24 14:48 Results Reviewed Results Reviewed: Laboratory Tests 06/19/24 06/19/24 06:54 06:56 WBC 4.6 L Hgb 15.6 Hct 45.9 Plt Count 268 Sodium 141 Potassium 3.7 Creatinine 0.80 Estimated GFR > 60 Fasting Glucose 237 H Hemoglobin A1c % 8.3 H Calcium 8.7 D AST 36 ALT 49 H Triglycerides 336 H Cholesterol 160 LDL Cholesterol, Calc 59 HDL Cholesterol 34 L Vitamin B12 498 25-OH Vitamin D Total 94.3 Ur Specific [place] >= 1.030 H Urine Protein Negative Urine Glucose (UA) >=1000 H Urine Blood Negative Urine Nitrite Negative Ur Leukocyte Esterase Negative Coding Level of Care Code Est Pt Level 4 (50884) Complex EM visit Add On G2211 Diagnoses Type 2 diabetes mellitus with hyperglycemia, without long-term current use of insulin E11.65 Diabetes mellitus type: type 2 Diabetes mellitus [facility] insulin use: without [facility] use Diabetes mellitus complication status: with hyperglycemia Benign essential hypertension I10 Pure hypercholesterolemia E78.00 Obstructive sleep apnea G47.33 Vitamin D deficiency E55.9 Renal calculi N20.0 Bilateral primary osteoarthritis of knee M17.0 Morbid obesity with BMI of 40.0-44.9, adult E66.01; Z68.41 Additional Codes PHQ-9 - 87480 - PHQ-9 Billing: Yes ([id number]) Assessment & Plan Assessment & Plan (1) Diabetes mellitus: Code(s): E11.9 - Type 2 diabetes mellitus without complications Category: Medical Qualifiers: Diabetes mellitus type: type 2 Diabetes mellitus [facility] insulin use: 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 Diabetes mellitus complication status: with hyperglycemia Qualified Code(s): E11.65 - Type 2 diabetes mellitus with hyperglycemia Plan: Patient's HgbA1c has increased from previous - he was at 7.6% in December 2023 but this has gone up to 8.3% when he had his follow up labs done in June 2024 His in-office Hgb1c today is even higher, now at 9.2% - goal is at least < 7.0% Reinforced diabetic diet - he admits that he has been struggling with his diet and would now like some help with this Continue Glipizide ER 5 mg Q AM and Januvia 100 mg QD Will now refer him to endocrinology for further evaluation and management (2) Benign essential hypertension: Code(s): I10 - Essential (primary) hypertension Category: Medical Plan: Reinforced low sodium diet - goal is systolic BP of at least 130 to 140 mm or less Continue Lisinopril 40 mg QD, HCTZ 25 mg QD in AM and Amlodipine 5 mg QD (3) Pure hypercholesterolemia: Code(s): E78.00 - Pure hypercholesterolemia, unspecified Category: Medical Plan: Patient was not able to get his follow up labs done prior to his appointment today - states that he went and did his labs back in June 2024, the results of which we reviewed with him today but have again emphasized that we are going over labs results from a few months ago and these are not as current as we would like them to be Reinforced low cholesterol diet Continue O'Brien-3 capsules 340 mg QD and Atorvastatin 10 mg QD Will recheck his labs and fasting lipids again in 4 months for follow up - lab orders are printed out and handed to patient to help remind him to get these done just before his next follow up appt (4) Obstructive sleep apnea: Comment: uses CPAP nightly Code(s): G47.33 - Obstructive sleep apnea (adult) (pediatric) Category: Medical Plan: Patient continues to use his CPAP device regularly/daily when sleeping at night - feels that it is still helping him a lot (5) Vitamin D deficiency: Code(s): E55.9 - Vitamin D deficiency, unspecified Category: Medical Plan: Corrected - continue Vitamin D3 2000 units QD (6) Renal calculi: Code(s): N20.0 - Calculus of kidney Category: Medical Plan: The composition of his kidney stones in the past were mostly calcium oxalate He has been asymptomatic lately and is again encouraged to continue to increase his oral fluid intake He had a repeat renal US done last year that revealed (+) bilateral non-obstructing renal stones measuring up to 7 mm on the right and 2 mm on the left with some new from prior. Left renal pelviectasis without rudi hydronephrosis Follow up with urology (Dr. Mckenzie) as scheduled (7) Bilateral primary osteoarthritis of knee: Code(s): M17.0 - Bilateral primary osteoarthritis of knee Category: Medical Plan: MRI of the right knee done in 02/2023 revealed (+) complex tearing of the posterior medial meniscal body with a near-complete radial component as well as a superiorly displaced meniscal flap. Complex tearing extends along the inner margin and tibial articular surface of the posterior horn and root. There is also moderate medial as well as mild patellofemoral compartment osteoarthritis and moderate joint effusion and trace Stacy's cyst Patient underwent right knee arthroscopic surgery with Dr. Francois last year in March 2023 with (+) relief of symptoms but as his knee has been bothering him a lot again recently, he eventually underwent repeat arthroscopic surgery as well as successful partial right medial meniscectomy a couple of weeks ago on 05/11/2024 - patient states that his right knee currently is feeling a lot better Follow up with orthopedics as scheduled (8) Morbid obesity with BMI of 40.0-44.9, adult: Code(s): E66.01 - Morbid (severe) obesity due to excess calories; Z68.41 - Body mass index [BMI] 40.0-44.9, adult Category: Medical Plan: Reinforced diet/exercise as tolerated/lose weight Plan Follow up in 4 months Orders: Orders Complete Blood Count Auto Diff 4 Months D64.9 - Anemia, unspecified Microalbumin, Random (w Creat) 4 Months E11.9 - Type 2 diabetes mellitus without complications Hemoglobin A1c 4 Months E11.9 - Type 2 diabetes mellitus without complications TSH reflex Free T4 4 Months E78.00 - Pure hypercholesterolemia, unspecified Vitamin B12 and Folate 4 Months E53.8 - Deficiency of other specified B group vitamins AMB Hemoglobin A1c Today Z13.9 - Encounter for screening, unspecified Comprehensive [place]. Panel Fast 4 Months E78.00 - Pure hypercholesterolemia, unspecified Lipid Panel 4 Months E78.00 - Pure hypercholesterolemia, unspecified UA CC w/rflx Micro + Cult 4 Months R30.0 - Dysuria Vitamin D 25-OH Total 4 Months E55.9 - Vitamin D deficiency, unspecified Referrals Endocrinology Referral E11.65 - Type 2 diabetes mellitus with hyperglycemia Medications: Refilled Januvia (sitagliptin phosphate) 100 mg PO DAILY 90 tabs 3RF 90 days NS
[2024-10-18 14:27] VITALS: BP 112/72; PULSE 97; O2SAT 97; BMI 44.4
== END 2024-10-18 15:11 | disposition home or self-care (01) ==
LOC: HO.HMCH 14:26
PROVIDERS: PCP Internal Medicine; Visit Provider Internal Medicine
DX: E11.65 Type 2 diabetes mellitus with hyperglycemia (principal); E66.01 Morbid (severe) obesity due to excess calories; Z68.41 Body mass index [BMI] 40.0-44.9, adult; I10 Essential (primary) hypertension; E78.00 Pure hypercholesterolemia, unspecified; G47.33 Obstructive sleep apnea (adult) (pediatric); E55.9 Vitamin D deficiency, unspecified; N20.0 Calculus of kidney; M17.0 Bilateral primary osteoarthritis of knee

== ENCOUNTER → 2024-10-18 14:25 | Outpatient (BNVA) | payer MEDICARE, SELFPAY | PROVIDERS: PCP Internal Medicine; Visit Provider Internal Medicine | DX: E11.65 Type 2 diabetes mellitus with hyperglycemia (principal); E78.00 Pure hypercholesterolemia, unspecified; I10 Essential (primary) hypertension; E55.9 Vitamin D deficiency, unspecified; G47.33 Obstructive sleep apnea (adult) (pediatric); N20.0 Calculus of kidney; M17.0 Bilateral primary osteoarthritis of knee; E66.01 Morbid (severe) obesity due to excess calories; Z68.41 Body mass index [BMI] 40.0-44.9, adult; Z71.3 Dietary counseling and surveillance | CPT/HCPCS: 83036; 96127; 99212 ==

== ENCOUNTER 2024-10-25 14:06 | Outpatient (AMB) | payer MEDICARE, SELFPAY ==
[2024-10-25 14:08] VITALS: BP 140/88; PULSE 110; O2SAT 97; BMI 44.7
--- NOTE | 2024-10-25 14:08 | A.OFFVIS_ITS ---
Vital Signs 10/25/24 14:08 Height 5 ft 5 in Weight 268 lb 11.896 oz BMI 44.7 BP 140/88 H Blood Pressure Location Lt brachial Position Sitting Pulse 110 H Pulse Source Pulse Oximeter Pulse Oximetry (%) 97 Oxygen Delivery Method Room Air Intake Visit Reasons: Type 2 diabetes mellitus with hyperglycemia Intake Note: Patient present today for Type 2 Diabetes Mellitus Last Diabetic eye exam: 06/2024 Last Podiatry Visit: Doesn't have one Random Glucose: 257 mg/dl HgA1C: 9.2% 10/18/24 Sheep Rancher Required: No Accompanied by: Self / Same As Patient Allergies mold Allergy (Intermediate, Verified 10/25/24 14:15) HAYFEVER metformin Adverse Reaction (Severe, Verified 10/25/24 14:15) severe fatigue; exhaustion DUST Allergy (Intermediate, Uncoded 10/25/24 14:15) HAYFEVER Medication List - Last Reconciled 10/25/24 by Donna Dodson MD amlodipine 5 mg PO DAILY 90 days aspirin 81 mg PO DAILY atorvastatin 10 mg PO BEDTIME 90 days [C Pap nasal pillow resmed airfit P30 I As directed] clotrimazole-betamethasone 1-0.05 % 1 appl topical BID 2 weeks [CPAP DEVICE RESMED full face MASK MEDIUM As directed start 4-16 cm H2O humidified AIR] glipizide ER 5 mg PO QAM 90 days hydrochlorothiazide 25 mg PO DAILY 90 days Januvia (sitagliptin phosphate) 100 mg PO DAILY 90 days NS lisinopril 40 mg PO DAILY 90 days potassium chloride ER 20 mEq PO DAILY 90 days HPI Comments Details: 69-year-old male here today for initial evaluation of type 2 diabetes mellitus. History of diabetes Diagnosed with DM type 2 4 years ago, so some time around 2020. Gained a lot of weight around 2018 never been on insulin Prior therapy: metformin at some time in the past , apparently listed as an allergy but just says severe exhaustion? Current regimen: Januvia 100 mg daily Glipizide ER 5 mg daily Random Glucose: 257 mg/dl HgA1C: 9.2% 10/18/24 Does reports symptoms of hyperglycemia isuch as polyuria polydipsia. Denies any hypoglycemic symptoms. SMBG's doesnt check sugars doesnt have a meter Vaccines: opts out of flu vaccine for the past 5 years. Got the initial moderna x2 but no boosters . Alcohol : 2-3 drink s a week just on Complications Eye exam: Last eye exam was 07/10. no history of retinopathy Neuropathy: no symptoms , no roading engineer Kidney disease: no history Macrovascular complications: No history of macrovascular complications. Statin:atorvastatin 10 mg daily NICA/ARB: lisinopril 40 mg daily Exercise: doesnt exercise at all Diet control: 7 30 AM BF sandwich, one glass of orange juice noon : sandwich , burger 5 to 60 30 : dinner meat loaf , spaghetti , steak Normally eats in Sometimes eats a piece of cake He has never had any hospitalizations for hyperglycemia/hypoglycemia. Physical exam General: sitting comfortably in no acute distress HEENT: normocephalic/atraumatic, Neck: Symmetrical Cardiac: Tachycardic today but was rushing in Pulm: Normal pulmonary effort Abd: not distended Extremities: no edema Neuro: AAO x3, Speech: normal, no facial droop, moving all 4 extremities Skin: no rash Foot exam: Deferred today Laboratory Tests 11/10/19 12/29/23 06/19/24 07:42 06:53 06:56 WBC 4.6 L Hgb 15.6 Hct 45.9 Plt Count 268 Sodium 141 Potassium 3.7 Creatinine 0.80 Estimated GFR > 60 Fasting Glucose 237 H Estimat Average Glucose 192 Hgb A1c (Clinic) Hemoglobin A1c % 8.3 H Calcium 8.7 D AST 36 ALT 49 H Triglycerides 336 H Cholesterol 160 LDL Cholesterol, Calc 59 HDL Cholesterol 34 L Vitamin B12 498 Urine Creatinine 264.06 Urine Microalbumin 17.0 Microalb/Creat Ratio 6.4 JASPREET Antibody <5 10/18/24 14:36 WBC Hgb Hct Plt Count Sodium Potassium Creatinine Estimated GFR Fasting Glucose Estimat Average Glucose Hgb A1c (Clinic) 9.2 H Hemoglobin A1c % Calcium AST ALT Triglycerides Cholesterol LDL Cholesterol, Calc HDL Cholesterol Vitamin B12 Urine Creatinine Urine Microalbumin Microalb/Creat Ratio JASPREET Antibody [facility] Medical History (Updated 10/25/24 @ 15:17 by Donna Dodson MD) HLD (hyperlipidemia) Obesity Arthritis Warthin's tumor Vitamin D deficiency Localized swelling, mass and lump, right upper limb Morbid obesity with BMI of 40.0-44.9, adult Obstructive sleep apnea Renal calculi Pure hypercholesterolemia Benign essential hypertension Hx of renal calculi HTN (hypertension) Diabetes Adenomatous colon polyp Surgical History Status post medial meniscectomy of right knee S/P right knee arthroscopy Hx of appendectomy Hx of cystoscopy Hx of cystoscopy H/O lithotripsy Hx of colonoscopy (~03/15/17) History of parotidectomy Family History Father CVD (cardiovascular disease) Mother Cancer Colon cancer Social History Household Members: Spouse Housing: House Are you a primary account executive healthcare to a significant other at home: No Do you presently have visiting nurse or other home services: No Alcohol intake: current Alcohol intake frequency: holidays/special occasions only Patient Tobacco Use Status: Former Tobacco user Tobacco use type: Cigarette Years Smoked: 30 e-Cigarette/Vaping Use: Never Used Second Hand Smoke Exposure: No service: No Current occupational status: employed Current occupation: [employer] Cognitive needs: No Hearing needs: No Vision needs: No Assessment & Plan Assessment & Plan (1) Diabetes: Comment: NIDDM-dx within the last year-does not check glucose at home Code(s): E11.9 - Type 2 diabetes mellitus without complications Category: Medical Qualifiers: Diabetes mellitus type: type 2 Diabetes mellitus superintendent marine oil terminal insulin use: without mcc use Diabetes mellitus complication status: with hyperglycemia Qualified Code(s): E11.65 - Type 2 diabetes mellitus with hyperglycemia Plan: 69-year-old male coming in today for initial evaluation of type 2 diabetes mellitus without long-term insulin use with hyperglycemia. A1c at 9.2% from October 2024. His control has worsened recently as he used to be 8.3 % in June 2024 Blood sugar elevated today at 257 mg/dL. He does not have a meter and does not check his blood sugars. He has had type 2 diabetes mellitus at least since 2020. He is only on glipizide and Januvia. Apparently metformin had some adverse reaction in the past, he has not really sure what happened. It is listed as an allergy. He would be an excellent candidate for GLP 1 agonist especially given BMI of 44.7 kg per m2. Weight loss would also help with better control of his diabetes. He has never had pancreatitis, 2-3 drinks a week of alcohol weekly, no history of gallstones. I discussed with the him side effects of GI intolerance, as well as rare side effects of pancreatitis, association of medullary thyroid cancer in mice. He does not have any family history of medullary thyroid cancer. We spent time today discussing importance of diabetic control and complications of hyperglycemia. Plan: -start Trulicity 0.75 mg weekly injection -once you start Trulicity, stopped Januvia -continue glipizide 5 mg extended release daily -discussed importance of monitoring blood sugars and prescribed him meter, lancets, test strips. Nursing did education at the end of the visit regarding checking blood sugar readings -discussed importance of 30 minutes of walk 5 days a week -up-to-date on eye visit, no known history of retinopathy but he is not sure if he has had retinopathy exam, discussed with the him importance of annual diabetic eye exams -does not have roading engineer, foot exam deferred today due to length of the visit being extended with the initial education for diabetes. -shaker washer referral placed, patient does not know how to check blood sugars, he needs reiterate option of a lot of basic diabetes education -electric shipyard operator referral placed, advised him regarding cutting out simple carbs and juices from his diet -follow up in 7 weeks (2) Obesity: Code(s): E66.9 - Obesity, unspecified Category: Medical Qualifiers: Obesity type: due to excess calories Obesity classification: adult class 3 (BMI >= 40) Serious obesity comorbidity presence: with serious comorbidity Body mass index: BMI 40.0-44.9 Qualified Code(s): E66.813 - Obesity, class 3; Z68.41 - Body mass index [BMI] 40.0-44.9, adult Plan: Current BMI 44.7 kg per m2 Current weight 268 lb Lifestyle modification as discussed above -starting him on Trulicity for his diabetes, this will also help with weight management. -start Trulicity 0.75 mg weekly injection (3) HLD (hyperlipidemia): Code(s): E78.5 - Hyperlipidemia, unspecified Category: Medical Qualifiers: Hyperlipidemia type: mixed hyperlipidemia Qualified Code(s): E78.2 - Mixed hyperlipidemia Plan: Triglyceride levels elevated from August 2024. LDL is within goal of 70 mg/dL. Triglycerides level we will improve with better control of diabetes. Plan: -continue atorvastatin 10 mg daily Plan I spent 60 minutes in reviewing the record, seeing the patient and documenting in the medical record. Orders: Referrals Diabetes Education Referral E11.9 - Type 2 diabetes mellitus without complications Radio Frequency Engineer Nutrition Referral E11.9 - Type 2 diabetes mellitus without complications Medications: New blood-glucose meter (FreeStyle Lite Meter kit) As directed to check blood sugars once a day 1 ea 0RF semaglutide (Ozempic) for 4 weeks 0.25 mg (0.368 mL) subcut QWEEK 3 mL 0RF dulaglutide (Trulicity) 0.75 mg (0.5 mL) subcut QWEEK 2 mL 5RF blood sugar diagnostic (FreeStyle Lite Strips) As directed to check blood sugars once a day 50 ea 6RF lancets (FreeStyle Lancets) As directed to check blood sugars once a day 100 ea 5RF Patient Instructions: Start Trulicity 0.75 mg weekly injection Once you start this , stop Januvia Continue Glipizide Monitor blood sugars at least 2-3 times a week first things in the morning on an empty stomach , ideally target 90 to 110 mg /dl Sometimes also check your blood sugars 2 hours after a meal , ideally it should be < 140 mg /dl See eye doctor annually Walk ideally 30 mins 5 days a week , build your own regimen See the electric shipyard operator See the educator Coding Level of Care Code New Pt Level 5 (37307) Complex EM visit Add On G2211 Diagnoses Type 2 diabetes mellitus with hyperglycemia, without long-term current use of insulin E11.65 Diabetes mellitus type: type 2 Diabetes mellitus mcc insulin use: without superintendent marine oil terminal use Diabetes mellitus complication status: with hyperglycemia Class 3 severe obesity due to excess calories with serious comorbidity and body mass index (BMI) of 40.0 to 44.9 in adult E66.813; Z68.41 Obesity type: due to excess calories Obesity classification: adult class 3 (BMI >= 40) Serious obesity comorbidity presence: with serious comorbidity Body mass index: BMI 40.0-44.9 Mixed hyperlipidemia E78.2 Hyperlipidemia type: mixed hyperlipidemia Time Spent (min) 60
[2024-10-25 14:22] LABS: Glucose, Whole Blood 257 mg/dL (60-115)
== END 2024-10-25 15:31 | disposition home or self-care (01) ==
LOC: HO.ENCR 14:07
PROVIDERS: PCP Internal Medicine; Visit Provider Student in an Organized Health Care Education/Training Program
DX: E11.65 Type 2 diabetes mellitus with hyperglycemia (principal); E66.813 Obesity, class 3; Z68.41 Body mass index [BMI] 40.0-44.9, adult; E78.2 Mixed hyperlipidemia
CPT/HCPCS: 99205; G2211

== ENCOUNTER → 2024-10-25 14:06 | Outpatient (BNVA) | payer MEDICARE, SELFPAY | PROVIDERS: PCP Internal Medicine; Visit Provider Student in an Organized Health Care Education/Training Program | DX: E11.65 Type 2 diabetes mellitus with hyperglycemia (principal); E66.813 Obesity, class 3; Z68.41 Body mass index [BMI] 40.0-44.9, adult; Z79.4 Long term (current) use of insulin; Z79.82 Long term (current) use of aspirin; Z79.899 Other long term (current) drug therapy | CPT/HCPCS: 82947; 99202 ==

== ENCOUNTER 2024-11-19 08:50 | Outpatient (AMB) | payer MEDICARE, SELFPAY ==
--- NOTE | 2024-11-19 09:33 | MHC.AMDMED ---
Intake Intake Visit Reasons: Type 2 diabetes mellitus with hyperglycemia Power Generation Plant Operator Required: No Accompanied by: Self / Same As Patient Allergies mold Allergy (Intermediate, Verified 10/25/24 14:15) HAYFEVER metformin Adverse Reaction (Severe, Verified 10/25/24 14:15) severe fatigue; exhaustion DUST Allergy (Intermediate, Uncoded 10/25/24 14:15) HAYFEVER PFSH Medical History (Updated 10/25/24 @ 15:17 by Donna Dodson MD) HLD (hyperlipidemia) Obesity Arthritis Warthin's tumor Vitamin D deficiency Localized swelling, mass and lump, right upper limb Morbid obesity with BMI of 40.0-44.9, adult Obstructive sleep apnea Renal calculi Pure hypercholesterolemia Benign essential hypertension Hx of renal calculi HTN (hypertension) Diabetes Adenomatous colon polyp Surgical History Status post medial meniscectomy of right knee S/P right knee arthroscopy Hx of appendectomy Hx of cystoscopy Hx of cystoscopy H/O lithotripsy Hx of colonoscopy (~03/15/17) History of parotidectomy Family History Father CVD (cardiovascular disease) Mother Cancer Colon cancer Social History Household Members: Spouse Housing: House Are you a primary care director to a significant other at home: No Do you presently have visiting nurse or other home services: No Alcohol intake: current Alcohol intake frequency: holidays/special occasions only Patient Tobacco Use Status: Former Tobacco user Tobacco use type: Cigarette Years Smoked: 30 e-Cigarette/Vaping Use: Never Used Second Hand Smoke Exposure: No service: No Current occupational status: employed 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 2= needs review? 3= comprehend keep point? 4= demonstrates understanding/ competent? NC= Not Covered Topics Learning Objective: Initial visit Initial or post srvc Initial or post srvc Initial or post srvc Initial or post srvc Initial or post srvc Post srvc Comments Pre Edu-assessment/plan Outcome or reassess Outcome or reassess Outcome or reassess Outcome or reassess Outcome or reassess Outcome or reassess Diabetes pathophysiology 1 Healthy eating 1 Being active 1 Taking medication 1 Monitoring glucose 1 Acute complication 1 Chronic complicated 2 Lifestyle and healthy coping 1 Diabetes distress in support 1 ?Diabetes pathophysiology: ?Defined diabetes med identify own type of diabetes; list 3 options for treating diabetes Healthy eating: ?Described effect of type, amount and ?timing of food on blood glucose; list 3 methods for planning meal Being active: ?State effect of exercise on blood glucose level Taking medication: ?State effect of diabetes medications on diabetes; name diabetes medications taking, action and side effects Monitoring glucose: ?Identify recommended blood glucose targets and personal target Acute complication: ?List symptoms and treatment of hyper and hypoglycemia, DKA, sick day guidelines and guidelines for severe weather or situations of crisis and diabetes supply manage Chronic complication: ?To find the relationship of blood glucose levels to long-term complications of diabetes in screening and preventative measures Lifestyle and healthy coping: ?Described lifestyle and healthy coping strategies to rule out diabetes self-management Diabetes to stress and support: ?Recognize Diabetes to stress and be able to identified support options Learning objectives: The patient was provided with verbal and written education on the following topics as outlined below. The patient met all learning objectives and was able to verbalize understanding and provide teach back of education topics discussed . The patient was provided with the opportunity to ask questions and all questions were answered. Patient Assessment Assess patient education level/literacy/barriers, patient's last A1c on 10/18/2024 9.2%. Patient at today's visit expressed frustration in unable to obtain glucometer supplies and Trulicity 0.75 mg weekly. Message sent to PA work group to find out status of medication and glucometer supplies Patient questions/concerns, patient stated at today's visit he is concerned about kidney damage. Diabetes medications: Glipizide ER 5 mg daily Januvia 100 mg daily What is Diabetes? Pathophysiology How the body produces and uses insulin Identify type of DM Risk factors Signs of Diabetes Brief overview of Diabetes Management Monitoring blood sugar Following a meal plan Regular exercise Maintaining a healthy weight Taking medication as needed Members of the care team (PCP, RN, MA, RD, CDE, take up supervisor) Blood glucose monitoring When/how often to test Target blood sugar ranges Patient does not currently test blood glucose, has been unable to get glucose testing supplies due to insurance issue Introduction to Nutrition Importance of healthy diet in managing DM Diet is personalized to individual preference Review patient?s regular diet/food preferences Who prepares meals/does food shopping/ Dining out?/ Barriers? How diet effects glucose Eating 3 balanced meals a day with small, healthy snacks between meals Review food groups Carbohydrates: What is a carbohydrate/Which food/food groups are considered carbohydrates Effect of carbohydrates on blood glucose Portion sizes Reading food labels Basic carb counting (if applicable per nursing assessment) Plate method Meal planning Recommendations: Follow plate method, consistent carbs and read nutritional labels. Smart Goal: Will identify foods in current meal plan that contain carbohydrates between now and next visit Educational Materials: The patient was provided with the following written educational materials: Planning Healthy Meals, Target goals Handout Patient Response to instructions: Comprehension of Instructions: Fair Readiness to make changes: Contemplation How confident they feel about making changes: fair Portions of this note were created using voice recognition software, please excuse any words or phrases that may have been misinterpreted. Patient Instructions: Include regular daily activity. ADA recommends 30 minutes of exercise 5 days a week. Weight loss talk to PCP or Small Wind Energy Installer before starting new plan. Test blood sugar as directed; Fasting and 2hpp largest meal. Watch trends in results. Utilize results and to assess how food, physical activity and medications affect blood sugar results. Bring glucometer or CGM to next visit. Be knowledgeable about diabetes medication, its action, side effects, efficacy, toxicity, prescribed dosage, appropriate timing and frequency of administration, effect of missed and delayed doses and instructions for storage, travel and safety. Problem solving techniques to monitor hypo/hyperglycemia episodes and treatments. Reduce risk reduction behaviors, smoking cessation, regular eye, foot and dental examinations. Coding Level of Care Code Est Pt Level 1 (18054) Diagnoses Type 2 diabetes mellitus with hyperglycemia, without long-term current use of insulin E11.65 Diabetes mellitus type: type 2 Diabetes mellitus residential insulin use: without long wall mining machine tender use Diabetes mellitus complication status: with hyperglycemia
== END 2024-11-19 09:36 | disposition home or self-care (01) ==
LOC: HO.ENCR 08:51
PROVIDERS: PCP Internal Medicine; Visit Provider Registered Nurse Diabetes Educator
DX: E11.65 Type 2 diabetes mellitus with hyperglycemia (principal)

== ENCOUNTER → 2024-11-19 08:50 | Outpatient (BNVA) | payer MEDICARE, SELFPAY | PROVIDERS: PCP Internal Medicine; Visit Provider Registered Nurse Diabetes Educator | DX: E11.65 Type 2 diabetes mellitus with hyperglycemia (principal); Z79.84 Long term (current) use of oral hypoglycemic drugs | CPT/HCPCS: 99211 ==

== ENCOUNTER 2024-12-19 08:53 | Outpatient (AMB) | payer MEDICARE, SELFPAY ==
--- NOTE | 2024-12-19 09:04 | A.OFFVIS_ITS ---
VS Expanded 12/19/24 09:05 Height 5 ft 5 in Weight 259 lb 14.8 oz BMI 43.2 Intake Visit Reasons: Type 2 diabetes mellitus with hyperglycemia Allergies mold Allergy (Intermediate, Verified 10/25/24 14:15) HAYFEVER metformin Adverse Reaction (Severe, Verified 10/25/24 14:15) severe fatigue; exhaustion DUST Allergy (Intermediate, Uncoded 10/25/24 14:15) HAYFEVER Nutrition Presentation Details: Pt presents for MNT for T2DM Pt reports he has not started monitoring blood glucose level yet, has glucometer at home at reports knowing how to use the glucometer. He reports understanding relationship of food to blood glucose and working on reducing on high sugar foods. food frequency fruits: 0-1/d dairy: 3/d fish: 0-1/wk vex/wk pastries and similar:daily beverages: seltzer water majority of the time , reg soda 0-1/day CSD-Snjqami-Sr.Jeor Equation Height: 5 ft 5 in Weight: 160 lb Resting Metabolic Rate: 1417.50 Calculated Activity Level: Sedentary Calories Needed to Maintain Weight: 1701.00 Diagnosis Nutrition problem #1: excessive energy intake As related to (etiology) #1: diagnosis As evidenced by (sign/symptom) #1: knowledge deficit of diet [facility] Medical History (Updated 10/25/24 @ 15:17 by Donna Dodson MD) HLD (hyperlipidemia) Obesity Arthritis Warthin's tumor Vitamin D deficiency Localized swelling, mass and lump, right upper limb Morbid obesity with BMI of 40.0-44.9, adult Obstructive sleep apnea Renal calculi Pure hypercholesterolemia Benign essential hypertension Hx of renal calculi HTN (hypertension) Diabetes Adenomatous colon polyp Surgical History Status post medial meniscectomy of right knee S/P right knee arthroscopy Hx of appendectomy Hx of cystoscopy Hx of cystoscopy H/O lithotripsy Hx of colonoscopy (~03/15/17) History of parotidectomy Family History Father CVD (cardiovascular disease) Mother Cancer Colon cancer Social History Household Members: Spouse Housing: House Are you a primary patient care assistant to a significant other at home: No Do you presently have visiting nurse or other home services: No Alcohol intake: current Alcohol intake frequency: holidays/special occasions only Patient Tobacco Use Status: Former Tobacco user Tobacco use type: Cigarette Years Smoked: 30 e-Cigarette/Vaping Use: Never Used Second Hand Smoke Exposure: No service: No Current occupational status: employed 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 [employer] Cognitive needs: No Hearing needs: No Vision needs: No Assessment & Plan Assessment & Plan (1) Diabetes mellitus: Code(s): E11.9 - Type 2 diabetes mellitus without complications Category: Medical Qualifiers: Diabetes mellitus type: type 2 Diabetes mellitus technician terminal and repeater insulin use: without technician terminal and repeater use Diabetes mellitus complication status: with hyperglycemia Qualified Code(s): E11.65 - Type 2 diabetes mellitus with hyperglycemia Plan: Wt: 118 Kg (01/10 ) Est kcal needs as per MSJ: 1700 (40% carb, 30% protein/fat) Est fluid needs as per 25-30 ml/d: 3500 Est prot per day as per 1 g/kg bw: 120 Recommend fiber intake : 8-10 g per day and gradually increase to 25-28 g per day for women and 35-38 g for men or as tolerated Recommend sodium intake per day : less than 2000 mg Educated patient on: ( R = reviewed V = verbalizes understanding N/R = needs review N/A = not applicable * Food sources of carbohydrate, adequate serving sizes and its role in various health conditions: R ,V * Differences between complex carbohydrates a simple carbohydrates, role of fiber in diet: R * Lean protein sources of foods: R * Differences between types of fats and role in diet (mono on saturated fat fatty acids, saturated fatty acids, trans fats): R V N/R * Food sources of sodium in salt and healthy modifications for heart health in kidney health: R V R/V * Vitamins and minerals: R V N/R * Healthy plate method concept: R * Physical activity: Benefits a precaution: R V N/R * Hypoglycemia protocol (rule of 15): R V N/R * Dietary prevention of Hyperglycemia: R Patient Instructions: Monitor your blood sugar fasting and 2 hours after your largest meal Combine protein with small amount of carbohydrate rich foods, working on balancing meals and reducing totl carbs use red/yellow/green chart as a guide for carbohydrate per serving size Coding Level of Care Code Nutr Indiv Intake (82128) Diagnoses Type 2 diabetes mellitus with hyperglycemia, without long-term current use of insulin E11.65 Diabetes mellitus type: type 2 Diabetes mellitus alf insulin use: without technician terminal and repeater use Diabetes mellitus complication status: with hyperglycemia Time Spent (min) 30
[2024-12-19 09:05] VITALS: BMI 43.2
[2024-12-19 13:29] VITALS: BMI 26.6
== END 2024-12-19 09:26 | disposition home or self-care (01) ==
LOC: HO.ENCR 08:54
PROVIDERS: PCP Internal Medicine; Visit Provider Dietitian, Registered
DX: E11.65 Type 2 diabetes mellitus with hyperglycemia (principal)

== ENCOUNTER → 2024-12-19 08:53 | Outpatient (BNVA) | payer MEDICARE, SELFPAY | PROVIDERS: PCP Internal Medicine; Visit Provider Dietitian, Registered | DX: E11.65 Type 2 diabetes mellitus with hyperglycemia (principal); Z71.3 Dietary counseling and surveillance | CPT/HCPCS: 97802 ==

== ENCOUNTER 2024-12-20 09:40 | Outpatient (AMB) | payer MEDICARE, SELFPAY ==
[2024-12-20 09:42] VITALS: BP 124/78; PULSE 91; O2SAT 97; BMI 44.6
--- NOTE | 2024-12-20 09:42 | A.OFFVIS_ITS ---
Vital Signs 12/20/24 09:42 Height 5 ft 5 in Weight 268 lb 1.314 oz BMI 44.6 BP 124/78 Blood Pressure Location Lt brachial Position Sitting Pulse 91 Pulse Source Pulse Oximeter Pulse Oximetry (%) 97 Oxygen Delivery Method Room Air Intake Visit Reasons: Type 2 diabetes mellitus with hyperglycemia Intake Note: Patient present today for Type 2 Diabetes Mellitus Last Diabetic eye exam: June 2024 Last Podiatry Visit: Doesn't have one Random Glucose: 292 mg/dl HgA1C: 9.2% 10/18/24 Exceptional Children Teacher Required: No Accompanied by: Self / Same As Patient Allergies mold Allergy (Intermediate, Verified 12/20/24 09:47) HAYFEVER metformin Adverse Reaction (Severe, Verified 12/20/24 09:47) severe fatigue; exhaustion DUST Allergy (Intermediate, Uncoded 12/20/24 09:47) HAYFEVER Medication List - Last Reconciled 12/20/24 by Donna Dodson MD amlodipine 5 mg PO DAILY 90 days aspirin 81 mg PO DAILY atorvastatin 10 mg PO BEDTIME 90 days blood sugar diagnostic (FreeStyle Lite Strips) As directed to check blood sugars once a day blood-glucose meter (FreeStyle Lite Meter kit) As directed to check blood sugars once a day [C Pap nasal pillow resmed airfit P30 I As directed] clotrimazole-betamethasone 1-0.05 % 1 appl topical BID 2 weeks [CPAP DEVICE RESMED full face MASK MEDIUM As directed start 4-16 cm H2O humidified AIR] glipizide ER 5 mg PO QAM 90 days hydrochlorothiazide 25 mg PO DAILY 90 days Januvia (sitagliptin phosphate) 100 mg PO DAILY 90 days NS lancets (FreeStyle Lancets) As directed to check blood sugars once a day lisinopril 40 mg PO DAILY 90 days potassium chloride ER 20 mEq PO DAILY 90 days tirzepatide (Mounjaro) 2.5 mg (0.5 mL) subcut QWEEK HPI Comments Details: 69-year-old male here today for follow up of type 2 diabetes mellitus. History of diabetes Diagnosed with DM type 2 some time around 2020. Gained a lot of weight around 2018 never been on insulin Prior therapy: metformin at some time in the past , apparently listed as an allergy but just says severe exhaustion? Current regimen: Januvia 100 mg daily Glipizide ER 5 mg daily Last visit September 2024 I had prescribed him Trulicity initially and then we discovered his insurance prefers Solitario, Solitario prescribed but patient reports a lot of frustration with the obtaining the medication for the past 6 weeks. Finally he has a his medications. But then he got confused about which medication he was supposed to stop once he started the GLP 1 agonist, so at this time he has not been taking any medications. Random Glucose: 292 mg/dl HgA1C: 9.2% 10/18/24 Does reports symptoms of hyperglycemia isuch as polyuria polydipsia. Denies any hypoglycemic symptoms. SMBG's He finally picked up his meter, and testing supplies but has not started checking blood sugars yet. Vaccines: opts out of flu vaccine for the past 5 years. Got the initial moderna x2 but no boosters . Alcohol : 2-3 drink s a week just on Complications Eye exam: Last eye exam was 07/10. no history of retinopathy Neuropathy: no symptoms , no supervisor throwing department Kidney disease: no history Macrovascular complications: No history of macrovascular complications. Statin:atorvastatin 10 mg daily NICA/ARB: lisinopril 40 mg daily Exercise: doesnt exercise at all Diet control: 7 30 AM BF sandwich, one glass of orange juice noon : sandwich , burger 5 to 60 30 : dinner meat loaf , spaghetti , steak Normally eats in Sometimes eats a piece of cake He saw the sausage canner and mailhouse operator. He has never had any hospitalizations for hyperglycemia/hypoglycemia. Physical exam General: sitting comfortably in no acute distress HEENT: normocephalic/atraumatic, Neck: Symmetrical Cardiac: Tachycardic today but was rushing in Pulm: Normal pulmonary effort Abd: not distended Extremities: no edema Neuro: AAO x3, Speech: normal, no facial droop, moving all 4 extremities Skin: no rash Foot exam: Intact sensation to monofilament, warm and well-perfused, intact pulses Laboratory Tests 11/10/19 12/29/23 06/19/24 07:42 06:53 06:56 WBC 4.6 L Hgb 15.6 Hct 45.9 Plt Count 268 Sodium 141 Potassium 3.7 Creatinine 0.80 Estimated GFR > 60 Fasting Glucose 237 H Estimat Average Glucose 192 Hgb A1c (Clinic) Hemoglobin A1c % 8.3 H Calcium 8.7 D AST 36 ALT 49 H Triglycerides 336 H Cholesterol 160 LDL Cholesterol, Calc 59 HDL Cholesterol 34 L Vitamin B12 498 Urine Creatinine 264.06 Urine Microalbumin 17.0 Microalb/Creat Ratio 6.4 JASPREET Antibody <5 10/18/24 14:36 WBC Hgb Hct Plt Count Sodium Potassium Creatinine Estimated GFR Fasting Glucose Estimat Average Glucose Hgb A1c (Clinic) 9.2 H Hemoglobin A1c % Calcium AST ALT Triglycerides Cholesterol LDL Cholesterol, Calc HDL Cholesterol Vitamin B12 Urine Creatinine Urine Microalbumin Microalb/Creat Ratio JASPREET Antibody [facility] Medical History (Updated 10/25/24 @ 15:17 by Donna Dodson MD) HLD (hyperlipidemia) Obesity Arthritis Warthin's tumor Vitamin D deficiency Localized swelling, mass and lump, right upper limb Morbid obesity with BMI of 40.0-44.9, adult Obstructive sleep apnea Renal calculi Pure hypercholesterolemia Benign essential hypertension Hx of renal calculi HTN (hypertension) Diabetes Adenomatous colon polyp Surgical History Status post medial meniscectomy of right knee S/P right knee arthroscopy Hx of appendectomy Hx of cystoscopy Hx of cystoscopy H/O lithotripsy Hx of colonoscopy (~03/15/17) History of parotidectomy Family History Father CVD (cardiovascular disease) Mother Cancer Colon cancer Social History Household Members: Spouse Housing: House Are you a primary career placement specialist to a significant other at home: No Do you presently have visiting nurse or other home services: No Alcohol intake: current Alcohol intake frequency: holidays/special occasions only Patient Tobacco Use Status: Former Tobacco user Tobacco use type: Cigarette Years Smoked: 30 e-Cigarette/Vaping Use: Never Used Second Hand Smoke Exposure: No service: No Current occupational status: employed 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[employer] Cognitive needs: No Hearing needs: No Vision needs: No Physical Exam Vital Signs: Last Vital Signs Pulse 91 12/20/24 09:42 BP 124/78 12/20/24 09:42 Pulse Ox 97 12/20/24 09:42 Oxygen Delivery Method Room Air 12/20/24 09:42 BMI result Body Mass Index 44.6 Assessment & Plan Assessment & Plan (1) Diabetes: Comment: NIDDM-dx within the last year-does not check glucose at home Code(s): E11.9 - Type 2 diabetes mellitus without complications Category: Medical Qualifiers: Diabetes mellitus complication status: with hyperglycemia Diabetes mellitus continuous churn buttermaker insulin use: without group home use Diabetes mellitus type: type 2 Qualified Code(s): E11.65 - Type 2 diabetes mellitus with hyperglycemia Plan: 69-year-old male coming in today for follow up of type 2 diabetes mellitus without long-term insulin use with hyperglycemia. A1c at 9.2% from October 2024. His control has worsened recently as he used to be 8.3 % in June 2024 Blood sugar elevated today at 292 mg/dL. He established care with me in October 2024, at this time he has not been testing his blood sugars. He was only recently able to obtain his testing supplies, said it was much cheaper off some other brand he got off [employer]. I have asked him to bring all of his testing supplies to next appointment. He was only on glipizide and Januvia. For the past few days he has not taken any medications because he was having confusion regarding what he is supposed to be on. Apparently metformin had some adverse reaction in the past, he has not really sure what happened. It is listed as an allergy. He was only able to obtain Mounjaro last week, but still has not started taking it. We spent time today discussing importance of diabetic control and complications of hyperglycemia. Plan: -start Mounjaro 2.5 mg weekly injection, patient informed to call back in about 5-6 weeks to consider titrating up the dose. -stopped Januvia -continue glipizide 5 mg extended release daily -discussed importance of monitoring blood sugars and and bring meter to all appointments -discussed importance of 30 minutes of walk 5 days a week -up-to-date on eye visit, no known history of retinopathy but he is not sure if he has had retinopathy exam, discussed with the him importance of annual diabetic eye exams -does not have supervisor throwing department, foot exam unremarkable today -follow up with the educator and mailhouse operator -follow up in 8 weeks (2) Obesity: Code(s): E66.9 - Obesity, unspecified Category: Medical Qualifiers: Body mass index: BMI 40.0-44.9 Obesity classification: adult class 3 (BMI >= 40) Obesity type: due to excess calories Serious obesity comorbidity presence: with serious comorbidity Qualified Code(s): E66.813 - Obesity, class 3; Z68.41 - Body mass index [BMI] 40.0-44.9, adult Plan: Current BMI 44.7 kg per m2 Current weight 268 lb Lifestyle modification as discussed above -start Mounjaro 2.5 mg weekly, with plan for up titration in the coming weeks (3) HLD (hyperlipidemia): Code(s): E78.5 - Hyperlipidemia, unspecified Category: Medical Qualifiers: Hyperlipidemia type: mixed hyperlipidemia Qualified Code(s): E78.2 - Mixed hyperlipidemia Plan: Triglyceride levels elevated from August 2024. LDL is within goal of 70 mg/dL. Triglycerides level we will improve with better control of diabetes. Plan: -continue atorvastatin 10 mg daily Plan I spent 30 minutes in reviewing the record, seeing the patient and documenting in the medical record. Patient Instructions: Start Mounjaro 2.5 mg weekly , once you have taken this for 5 to 6 weeks , please call the office to consider increasing the dose Once you start this , stop Januvia Continue Glipizide Monitor blood sugars at least 3-4 times a week first things in the morning on an empty stomach , ideally target 90 to 110 mg /dl Sometimes also check your blood sugars 2 hours after a meal , ideally it should be < 140 mg /dl See eye doctor annually Walk ideally 30 mins 5 days a week , build your own regimen Follow up with the mailhouse operator Follow up with the educator Coding Level of Care Code Est Pt Level 4 (77714) Complex EM visit Add On G2211 Diagnoses Type 2 diabetes mellitus with hyperglycemia, without long-term current use of insulin E11.65 Diabetes mellitus complication status: with hyperglycemia Diabetes mellitus continuous churn buttermaker insulin use: without continuous churn buttermaker use Diabetes mellitus type: type 2 Class 3 severe obesity due to excess calories with serious comorbidity and body mass index (BMI) of 40.0 to 44.9 in adult E66.813; Z68.41 Body mass index: BMI 40.0-44.9 Obesity classification: adult class 3 (BMI >= 40) Obesity type: due to excess calories Serious obesity comorbidity presence: with serious comorbidity Mixed hyperlipidemia E78.2 Hyperlipidemia type: mixed hyperlipidemia Time Spent (min) 30
[2024-12-20 09:52] LABS: Glucose, Whole Blood 292 mg/dL (60-115)
== END 2024-12-20 10:10 | disposition home or self-care (01) ==
LOC: HO.ENCR 09:41
PROVIDERS: PCP Internal Medicine; Visit Provider Student in an Organized Health Care Education/Training Program
DX: E11.65 Type 2 diabetes mellitus with hyperglycemia (principal); E66.813 Obesity, class 3; Z68.41 Body mass index [BMI] 40.0-44.9, adult; E78.2 Mixed hyperlipidemia
CPT/HCPCS: 99214; G2211

== ENCOUNTER → 2024-12-20 09:40 | Outpatient (BNVA) | payer MEDICARE, SELFPAY | PROVIDERS: PCP Internal Medicine; Visit Provider Student in an Organized Health Care Education/Training Program | DX: E11.65 Type 2 diabetes mellitus with hyperglycemia (principal); E66.813 Obesity, class 3; Z68.41 Body mass index [BMI] 40.0-44.9, adult; E78.2 Mixed hyperlipidemia | CPT/HCPCS: 82947; 99212 ==

== ENCOUNTER 2025-01-24 06:43 | Outpatient (REF) | payer MEDICARE, SELFPAY ==
--- NOTE | ~2025-01-24 | XR_ITS ---
EXAMINATION: XR ABDOMEN KUB CLINICAL INDICATION: N20.0 - Calculus of kidney COMPARISON: None available. TECHNIQUE: AP view of the abdomen. FINDINGS: The bowel gas pattern is unremarkable with no evidence of mechanical obstruction.. There are multiple calcification overlying the lower poles of bilateral kidneys, measuring up to 4 mm. Overlying bowel gas and stool limits evaluation. Redemonstrated multiple vascular calcifications in the pelvis. No abnormal soft tissue masses. No gross free air is seen.. XR/XR KUB IMPRESSION: Multiple calcifications overlying the lower pole of bilateral kidneys, measuring up to 4 mm. Electronically signed by: Ricky Osborne MD 01/24/2025 07:38 AM EDT
== END 2025-01-24 06:44 | disposition home or self-care (01) ==
LOC: HO.XRAY 06:43
PROVIDERS: PCP Internal Medicine; Visit Provider Urology
DX: N20.0 Calculus of kidney (principal); E11.9 Type 2 diabetes mellitus without complications
CPT/HCPCS: 36415; 74018; 84403

== ENCOUNTER → 2025-01-24 07:09 | Outpatient (BNV) | payer MEDICARE, SELFPAY | PROVIDERS: PCP Internal Medicine; Visit Provider Radiology Diagnostic Ultrasound | DX: N20.0 Calculus of kidney (principal); R93.421 Abnormal radiologic findings on diagnostic imaging of right kidney; R93.422 Abnormal radiologic findings on diagnostic imaging of left kidney | CPT/HCPCS: 74018 ==

== ENCOUNTER 2025-02-06 08:31 | Outpatient (AMB) | payer MEDICARE, SELFPAY ==
--- NOTE | 2025-02-06 08:31 | MHC.OFFVIS ---
Intake Visit Reasons: 6m/ KUB Intake Note: Patient is present for: telehealth 6M/KUB Urology Medication:POTASSIUM CHLORIDE Blood Thinner:ASPIRIN labs done 01/24/25: TT 174 xray done: 01/24/25 Director Trial Required: No Accompanied by: Self / Same As Patient Allergies mold Allergy (Intermediate, Verified 02/06/25 08:32) HAYFEVER metformin Adverse Reaction (Severe, Verified 02/06/25 08:32) severe fatigue; exhaustion DUST Allergy (Intermediate, Uncoded 02/06/25 08:32) HAYFEVER HPI Comments Details: Mr Palmer is a very pleasant male. He is a patient of Dr Lynne. He is seen for the following urologic conditions. - nephrolithiasis - hypogonadism Telemedicine Evaluation 15 min Consultation DoximVitrinepix Lissy Video KUB Bilateral small stones 4 mm Remains asymptomatic Continue potassium citrate - switch from potassium chloride Diabetic with low total testosterone Initiate replacement Testosterone gel Hypogonadism Diabetic On tirzepatide plus glipizide and metformin Lab - 02/09 T 174 Nephrolithiasis/Urolithiasis:? No imaging done recently Will plan on repeating in 6 months Should remain on potassium citrate Concomitant diagnosis includes diabetes ? They are here for?further evaluation of nephrolithiasis ?- stone staying stable ? Urolithiasis was diagnosed?10/2015.? The patient previously had kidney stones whose composition w?calcium oxalate - monohydrate, calcium phosphate - brushite ?06/07 CaOxMono 75%.? Laboratory investigations include?pending.? 24 Hour urine evaluation?01/31 - Low Urine volume < 2.0 liters, Hypercalciuria (> 200mg), High oxalate > 30mg ?09/01 , Good Volume > 2.00 L, High Sodium (> 100mEq), High oxalate > 30mg, Hypercalciuria (> 200mg) ?07/03 , Good Volume > 2.00 L, Hypercalciuria (> 200mg), High Sodium (> 100mEq), High oxalate > 30mg, High Citrate ?02/02 , Good Volume > 2.00 L, High Citrate, High oxalate > 30mg, High Sodium (> 100mEq), Hypercalciuria (> 200mg ?08/04 , Good Volume > 2.00 L, Hypercalciuria (> 200mg) 282 ?09/04 good volume, high oxalate high sodium ? Prior treatment(s) include?01/31 , right, ureteroscopy ?09/01 , medical management, with allopurinol, , with thiazides ?07/03 indapamide, sildenafil ?06/07 [facility]R right side ? Prior imaging includes?a CT (computed tomography) scan of the abdomen/pelvis (stone protocol) multiple right renal stones. Largest is 9 x 21 mm. Smaller right lower pole renal stones largest is 4 x 5 mm. Mild right hydronephrosis. No stone seen in the ureter. Left kidney no stone seen. ?02/01 - , a renal ultrasound - residual 5mm fragments ?07/03 , a renal ultrasound, showing radiodense stone(s), bilaterally ?08/03 , a CT (computed tomography) scan of the abdomen/pelvis (stone protocol), showing radiodense stone(s) small bilateral ?02/02 , a renal ultrasound right 5mm x3, left punctate ?08/04 , a renal ultrasound right 5mm x 3, left small ?02/03 , a renal ultrasound right multiple stones ?08/05 , a renal ultrasound, 4 mm right, nothing left - 04/06 renal ultrasound no stones seen - 01/07 renal ultrasound 4 mm right, no stone on left - 07/09 renal ultrasound 7 mm stone side - 01/09 renal ultrasound multiple small stones right side, 2 small stones left side - 07/10 KUB 3 MM STONES BILATERAL ? UA today shows?specific gravity within normal range suggestive of adequate hydration today.? Current therapeutic plan will be?indapamide 2.5, keep up fluids.? Risk, benefits and alternatives to therapy were discussed regarding the use and timing of prescribed medications. Pertinent side effects and interactions for medications were highlighted and adherence emphasized. [facility] Medical History (Updated 02/06/25 @ 09:10 by Magdi Mckenzie MD) HLD (hyperlipidemia) Obesity Arthritis Warthin's tumor Vitamin D deficiency Localized swelling, mass and lump, right upper limb Morbid obesity with BMI of 40.0-44.9, adult Obstructive sleep apnea Renal calculi Pure hypercholesterolemia Benign essential hypertension Hx of renal calculi HTN (hypertension) Diabetes Adenomatous colon polyp Surgical History Status post medial meniscectomy of right knee S/P right knee arthroscopy Hx of appendectomy Hx of cystoscopy Hx of cystoscopy H/O lithotripsy Hx of colonoscopy (~03/15/17) History of parotidectomy Family History Father CVD (cardiovascular disease) Mother Cancer Colon cancer Social History Household Members: Spouse Housing: House Are you a primary healthcare analyst to a significant other at home: No Do you presently have visiting nurse or other home services: No Alcohol intake: current Alcohol intake frequency: holidays/special occasions only Patient Tobacco Use Status: Former Tobacco user Tobacco use type: Cigarette Years Smoked: 30 e-Cigarette/Vaping Use: Never Used Second Hand Smoke Exposure: No service: No Current occupational status: employed 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 [employer] Cognitive needs: No Hearing needs: No Vision needs: No Review of Systems Const All systems reviewed & are unremarkable except as noted in HPI and below Reports no additional complaints Resp Reports no additional complaints GI Reports no additional complaints Reports as per HPI Musc Reports no additional complaints Physical Exam Telemedicine evaluation Appropriate responses Regular breathing rate and rhythm HEENT Head: Yes normal to inspection Ears: hearing grossly normal bilaterally Eyes General: appearance normal, both eyes and all related structures Neck Neck: Yes normal visual inspection Chest Chest palpation & inspection: normal inspection of the chest Resp Effort & Inspection: normal respiratory effort and able to speak in complete sentences Telehealth Telehealth Telehealth Platform: [facility] Location of provider rendering services: practice address Location of patient: address on file Patient Identification confirmed using: Name, : Yes Telehealth method: video Patient verbally consented to treatment: Yes Patient verbally consented to billing insurance company: Yes Patient informed of any privacy concerns related to visit: Yes Minutes spent on Phone/Video with Pt.: 15 Assessment & Plan Assessment & Plan (1) Hypogonadism in male: Code(s): E29.1 - Testicular hypofunction Category: Medical Plan Initiate testosterone replacement Switch from potassium chloride to potassium citrate Three-month follow-up lab Orders: Orders Testosterone, Free/Total 10 Weeks E29.1 - Testicular hypofunction Medications: New potassium citrate ER 20 mEq (2 x 10 mEq (1,080 mg)) PO BID 360 tabs 1RF 90 days testosterone Apply to shoulder and rub in until dry 1 packet transdermal DAILY 150 grams 2RF 30 days E29.1 - Testicular hypofunction Discontinued potassium chloride ER Discontinued Reason: Doctor's Order 20 mEq PO DAILY 90 days 90 tabs 3RF Patient Instructions: This note is constructed using voice recognition software. While every effort has been made to ensure accuracy client account representative errors may have been included. Imaging studies, laboratory and physical exam results were discussed and reviewed in detail. No major barriers to patient understanding were identified. An opportunity to ask questions regarding the treatment plan was provided. All questions were answered. The patient expressed understanding and agreement with the above treatment plan. The patient is aware they should contact our office by phone for worsening of their current condition or the appearance of new urologic symptoms. Compliance is encouraged with any medications and followup testing that is ordered. It is a privilege to participate in the urologic care of your patient. If you have any questions or concerns regarding treatment for the above conditions, or other urologic issues, please do not hesitate to contact me. The office telephone contact is [phone]. Sincerely, Dr Magdi Mckenzie MD, [facility] - Urology Compassionate Specialist Care for the Genitourinary System Coding Level of Care Code Tele Est Pt Level 4 (79190) Complex EM visit Add On G2211 Diagnoses Hypogonadism in male E29.1
== END 2025-02-06 09:21 | disposition home or self-care (01) ==
LOC: HO.HUSH 08:31
PROVIDERS: PCP Internal Medicine; Visit Provider Urology
DX: E29.1 Testicular hypofunction (principal)
CPT/HCPCS: 99214; G2211

== ENCOUNTER 2025-02-12 08:11 | Outpatient (AMB) | payer MEDICARE, SELFPAY ==
[2025-02-12 08:38] VITALS: BMI 43.4
--- NOTE | 2025-02-12 08:38 | A.OFFVIS_ITS ---
VS Expanded 02/12/25 08:38 Height 5 ft 5 in Weight 260 lb 12.909 oz BMI 43.4 Intake Visit Reasons: Type 2 diabetes mellitus with hyperglycemia Allergies mold Allergy (Intermediate, Verified 02/06/25 08:32) HAYFEVER metformin Adverse Reaction (Severe, Verified 02/06/25 08:32) severe fatigue; exhaustion DUST Allergy (Intermediate, Uncoded 02/06/25 08:32) HAYFEVER Nutrition Presentation Details: Pt presents for MNT f/u for T2DM Pt reports he has started monitoring blood sugars 3 times a week , using one touch reveal glucometer, FBG ranging from 143-172 mg/dl Pt states he is working on diet changes , soda 0-1/wk , juice a cup with water breakfast: breakfast sand and juice Lunch: yogurt fruit or burger, sparkling water Dinner:pasta/beef/mushroom pastries EOTH: once/wk physical activity: adl PFSH Medical History (Updated 02/06/25 @ 09:10 by Magdi Mckenzie MD) HLD (hyperlipidemia) Obesity Arthritis Warthin's tumor Vitamin D deficiency Localized swelling, mass and lump, right upper limb Morbid obesity with BMI of 40.0-44.9, adult Obstructive sleep apnea Renal calculi Pure hypercholesterolemia Benign essential hypertension Hx of renal calculi HTN (hypertension) Diabetes Adenomatous colon polyp Surgical History Status post medial meniscectomy of right knee S/P right knee arthroscopy Hx of appendectomy Hx of cystoscopy Hx of cystoscopy H/O lithotripsy Hx of colonoscopy (~03/15/17) History of parotidectomy Family History Father CVD (cardiovascular disease) Mother Cancer Colon cancer Social History Household Members: Spouse Housing: House Are you a primary career based intervention coordinator to a significant other at home: No Do you presently have visiting nurse or other home services: No Alcohol intake: current Alcohol intake frequency: holidays/special occasions only Patient Tobacco Use Status: Former Tobacco user Tobacco use type: Cigarette Years Smoked: 30 e-Cigarette/Vaping Use: Never Used Second Hand Smoke Exposure: No service: No Current occupational status: employed 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 [employer] Cognitive needs: No Hearing needs: No Vision needs: No Assessment & Plan Assessment & Plan (1) Diabetes mellitus: Code(s): E11.9 - Type 2 diabetes mellitus without complications Category: Medical Qualifiers: Diabetes mellitus type: type 2 Diabetes mellitus custodial insulin use: without custodial use Diabetes mellitus complication status: with hyperglycemia Qualified Code(s): E11.65 - Type 2 diabetes mellitus with hyperglycemia Plan: Wt: 118 Kg (01/10 ),02/09 Est kcal needs as per MSJ: 1700 (40% carb, 30% protein/fat) Est fluid needs as per 25-30 ml/d: 3500 Est prot per day as per 1 g/kg bw: 120 Recommend fiber intake : 8-10 g per day and gradually increase to 25-28 g per day for women and 35-38 g for men or as tolerated Recommend sodium intake per day : less than 2000 mg Educated patient on: ( R = reviewed V = verbalizes understanding N/R = needs review N/A = not applicable * Food sources of carbohydrate, adequate serving sizes and its role in various health conditions: R ,V * Differences between complex carbohydrates a simple carbohydrates, role of fiber in diet: R * Lean protein sources of foods: R * Differences between types of fats and role in diet (mono on saturated fat fatty acids, saturated fatty acids, trans fats): R * Food sources of sodium in salt and healthy modifications for heart health in kidney health: R V R/V * Vitamins and minerals: R V N/R * Healthy plate method concept: R * Physical activity: Benefits a precaution: R * Hypoglycemia protocol (rule of 15): R V N/R * Dietary prevention of Hyperglycemia: R Patient Instructions: Work on reducing fat intake : choose a fruit in place of pastries, reduce fried foods /deep fried foods choose baked potato vs fried Coding Level of Care Code Nutr Indiv Subseq (96554) Diagnoses Type 2 diabetes mellitus with hyperglycemia, without long-term current use of insulin E11.65 Diabetes mellitus type: type 2 Diabetes mellitus custodial insulin use: without custodial use Diabetes mellitus complication status: with hyperglycemia Time Spent (min) 30
== END 2025-02-12 08:55 | disposition home or self-care (01) ==
LOC: HO.ENCR 08:12
PROVIDERS: PCP Internal Medicine; Visit Provider Dietitian, Registered
DX: E11.65 Type 2 diabetes mellitus with hyperglycemia (principal)

== ENCOUNTER → 2025-02-12 08:11 | Outpatient (BNVA) | payer MEDICARE, SELFPAY | PROVIDERS: PCP Internal Medicine; Visit Provider Dietitian, Registered | DX: E11.65 Type 2 diabetes mellitus with hyperglycemia (principal); Z71.3 Dietary counseling and surveillance | CPT/HCPCS: 97803 ==

== ENCOUNTER 2025-02-19 09:11 | Outpatient (AMB) | payer MEDICARE, SELFPAY ==
[2025-02-19 09:16] VITALS: BP 100/62; PULSE 91; TEMP 36.3; O2SAT 96; BMI 42.9
--- NOTE | 2025-02-19 09:16 | MHC.PC.OV ---
Vital Signs 02/19/25 09:16 Height 5 ft 5 in Weight 258 lb BMI 42.9 BP 100/62 Blood Pressure Location Lt brachial Position Sitting Pulse 91 Pulse Source Pulse Oximeter Temp 97.3 F Temp Source Temporal Artery Scan Pulse Oximetry (%) 96 Oxygen Delivery Method Room Air Intake Visit Reasons: uncontrolled DM, hyperlipidemia, HTN Prover Required: No Accompanied by: Self / Same As Patient Allergies mold Allergy (Intermediate, Verified 02/19/25 09:57) HAYFEVER metformin Adverse Reaction (Severe, Verified 02/19/25 09:57) severe fatigue; exhaustion DUST Allergy (Intermediate, Uncoded 02/19/25 09:57) HAYFEVER Medication List - Last Reconciled 02/19/25 by Misha Lynne MD amlodipine 5 mg PO DAILY 90 days aspirin 81 mg PO DAILY atorvastatin 10 mg PO BEDTIME 90 days blood sugar diagnostic (FreeStyle Lite Strips) As directed to check blood sugars once a day blood-glucose meter (FreeStyle Lite Meter kit) As directed to check blood sugars once a day [C Pap nasal pillow resmed airfit P30 I As directed] clotrimazole-betamethasone 1-0.05 % 1 appl topical BID 2 weeks [CPAP DEVICE RESMED full face MASK MEDIUM As directed start 4-16 cm H2O humidified AIR] glipizide ER 5 mg PO QAM 90 days hydrochlorothiazide 25 mg PO DAILY 90 days lancets (FreeStyle Lancets) As directed to check blood sugars once a day lisinopril 40 mg PO DAILY 90 days potassium citrate ER 20 mEq (2 x 10 mEq (1,080 mg)) PO BID 90 days testosterone 1 packet transdermal DAILY 30 days tirzepatide (Mounjaro) 5 mg (0.5 mL) subcut QWEEK Tobacco use date assessed: 02/19/25 Fall risk assessment: No Falls in past year Last assessed Fall Risk: 10/18/24 Dental Screening Dental Screen Date: 10/18/24 Did you have a dental visit in the last 12 months?: No Did you have a dental problem in the last 6 months where you did not have access to dental care?: No Was dental information given to patient?: No HPI uncontrolled DM, hyperlipidemia, HTN HPI Details Patient comes in today for his follow up visit States that he currently feels okay and that his diabetes seems to be doing a lot better lately, with his FBS earlier this morning at around 92 mg/dl as shown on his smartphone based on his glucometer readings today Patient is now following up with endocrinology for his diabetes and is currently on Mounjaro and Glipizide ER He denies any headaches or dizziness Denies any chest pains, no increased SOB No nausea/vomiting, no abdominal pain No change in bowel habits noted He was not able to get his follow up labs done prior to his appointment today [facility] Medical History HLD (hyperlipidemia) Obesity Arthritis Warthin's tumor Vitamin D deficiency Localized swelling, mass and lump, right upper limb Morbid obesity with BMI of 40.0-44.9, adult Obstructive sleep apnea Renal calculi Pure hypercholesterolemia Benign essential hypertension Hx of renal calculi HTN (hypertension) Diabetes Adenomatous colon polyp Surgical History Status post medial meniscectomy of right knee S/P right knee arthroscopy Hx of appendectomy Hx of cystoscopy Hx of cystoscopy H/O lithotripsy Hx of colonoscopy (~03/15/17) History of parotidectomy Family History Father CVD (cardiovascular disease) Mother Cancer Colon cancer Social History Household Members: Spouse Housing: House Are you a primary career orientation teacher to a significant other at home: No Do you presently have visiting nurse or other home services: No Alcohol intake: current Alcohol intake frequency: holidays/special occasions only Patient Tobacco Use Status: Former Tobacco user Tobacco use type: Cigarette Years Smoked: 30 e-Cigarette/Vaping Use: Never Used Second Hand Smoke Exposure: No service: No Current occupational status: employed 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 1. Little interest or pleasure in doing things: not at all 2. Feeling down, depressed, or hopeless: not at all 3. Trouble falling or staying asleep, or sleeping too much: not at all 4. Feeling tired or having little energy: not at all 5. Poor appetite or overeating: not at all 6. Feeling bad about yourself - or that you are a failure or have let yourself or your family down: not at all 7. Trouble concentrating on things, such as reading the newspaper or watching television: not at all 8. Moving or speaking so slowly that other people could have noticed. Or the opposite - being so fidgety or restless that you have been moving around a lot more than usual: not at all 9. Thoughts that you would be better off or of hurting yourself in some way: not at all Total score: 0 Depression Screening Interpretation: Negative Depression Screening Done: Yes 72078 - PHQ-9 Billing: Yes Source: Developed by Drs. Jarad Vee, Stephany Nino, Ebenezer Ramirez and colleagues, with an educational dinh from [employer]. Thrive Questionnaire Date Thrive assessed: 02/19/25 I am a: Patient What is your living situation today?: I have a steady place to live Within the past 12 months, did the food you bought not last and you didn't have the money to get more?: Never true Within the past 12 months, did you worry whether your food would run out before you got money to buy more?: Never true Do you have trouble paying for medicines?: No Do you have trouble getting transportation to medical appointments?: No Do you have trouble paying your heating and electricity bill?: No Do you have trouble taking care of your child, family member or friend?: No Do you have trouble with day-to-day activities such as bathing, preparing meals, shopping, managing finances, etc.?: No Are you currently unemployed and looking for a job?: Yes Are you interested in more education?: No Please select the resources that you would like help with: None Currently or been in a relationship where the following occur: No concerns reported THRIVE Score: 0 AUDIT C Alcohol Use Questionnaire (AUDIT-C) 1. How often do you have a drink containing alcohol?: 2-4 times a month 2. How many drinks containing alcohol do you have on a typical day when you are drinking?: 1 or 2 3. How often do you have six or more drinks on one occasion?: Never Total Score: 2 Score Reviewed/Action Taken: Yes JASPREET-7 AMB Questionnaire JASPREET-7 Date JASPREET - 7 assessed: 02/19/25 Feeling nervous, anxious, or on edge: 0 = Not at all Not being able to stop or control worryin = Not at all Worrying too much about different things: 0 = Not at all Trouble relaxin = Not at all Being so restless that it is hard to sit still: 0 = Not at all Becoming easily annoyed or irritable: 0 = Not at all Feeling afraid as if something awful might happen: 0 = Not at all Total JASPREET-7 score (0-4 normal; 5-9 mild; 10-14 moderate; 15-21 severe): 0 Source: Developed by Drs. Jarad Vee, Stepahny Nino, Ebenezer Ramirez and colleagues, with an educational dinh from [employer]. Review of Systems Const Denies chills, Denies fatigue, Denies fever(s) and Denies headache(s) ENT Denies dysphagia, Denies dizziness, Denies otalgia, Denies headache(s), Denies neck pain, Denies odynophagia and Denies sore throat Card Denies chest pain, Denies palpitations and Denies dyspnea Resp Denies chest congestion, Denies cough and Denies dyspnea GI Denies abdominal pain, Denies constipation, Denies dysphagia, Denies diarrhea, Denies nausea, Denies odynophagia and Denies vomiting Denies difficulty urinating, Denies dysuria, Denies nocturia and Denies urinary frequency Musc Denies back pain, Reports arthralgias (right knee - feeling much better after his surgery a few months ago) and Denies neck pain Skin/Breast Denies rash Neuro Denies dizziness and Denies headache(s) Endo Denies fatigue and Denies palpitations Physical exam (Primary Care) Vital Signs: Last Vital Signs Temp 97.3 F 02/19/25 09:16 Pulse 91 02/19/25 09:16 BP 100/62 02/19/25 09:16 Pulse Ox 96 02/19/25 09:16 Oxygen Delivery Method Room Air 02/19/25 09:16 BMI result Body Mass Index 42.9 Tobacco/Smoking Status: Tobacco use Status Tobacco use date assessed 02/19/25 02/19/25 09:21 Patient Tobacco Use Status Former Tobacco user 02/19/25 09:21 Tobacco use type Cigarette 02/19/25 09:21 e-Cigarette/Vaping Use Never Used 02/19/25 09:21 PHQ-9: PHQ-9 Score PHQ-9: Total score 0 02/19/25 10:05 Depression Screening Interpretation: Negative Thrive Assessment: Date of Thrive Assessment Date Thrive assessed 02/19/25 02/19/25 09:21 Currently or been in a relationship where the following occur: No concerns reported Const General: no acute distress and alert HENMT Ears: TM's normal bilaterally and EAC's normal Throat: Yes posterior oropharynx normal and Yes tonsils normal Neck Neck: Yes supple and No lymphadenopathy Thyroid: Thyroid normal Resp Auscultation: clear to auscultation bilaterally, no rales and no wheezes Cardio Rate: regular rate Rhythm: regular rhythm Heart sounds: no murmurs GI Palpation (GI): Soft to palpation and nontender Auscultation: normal bowel sounds General: Yes no CVA tenderness Back/Spine/Pelvis Back: no CVA tenderness Thoracic/Lumbar Spine: No lumbar spinal tenderness Skin Rashes: no rashes Extrem General: Yes no clubbing, cyanosis or edema Right lower extremity: knee Details: tenderness; no swelling Results AMB Hemoglobin A1c AMB Hemoglobin A1c 7.8 % Last Edit by CHASE Sauceda on 02/19/25 11:02 Coding Level of Care Code Est Pt Level 4 (94407) Diagnoses Type 2 diabetes mellitus with hyperglycemia, without long-term current use of insulin E11.65 Diabetes mellitus type: type 2 Diabetes mellitus halfway insulin use: without combatant diver qualified use Diabetes mellitus complication status: with hyperglycemia Benign essential hypertension I10 Pure hypercholesterolemia E78.00 Obstructive sleep apnea G47.33 Vitamin D deficiency E55.9 Renal calculi N20.0 Bilateral primary osteoarthritis of knee M17.0 Morbid obesity with BMI of 40.0-44.9, adult E66.01; Z68.41 Additional Codes PHQ-9 - 55130 - PHQ-9 Billing: Yes ([id number]) Assessment & Plan Assessment & Plan (1) Diabetes mellitus: Code(s): E11.9 - Type 2 diabetes mellitus without complications Category: Medical Qualifiers: Diabetes mellitus type: type 2 Diabetes mellitus combatant diver qualified insulin use: without combatant diver qualified use Diabetes mellitus complication status: with hyperglycemia Qualified Code(s): E11.65 - Type 2 diabetes mellitus with hyperglycemia Plan: Patient's in-office HgbA1c today is at 7.8% (it was previously at 9.2% a few months ago) - goal is at least < 7.0% Reinforced diabetic diet Continue Glipizide ER 5 mg Q AM and Mounjaro 5 mg SQ once a week Follow up with endocrinology as scheduled (2) Benign essential hypertension: Code(s): I10 - Essential (primary) hypertension Category: Medical Plan: Reinforced low sodium diet - goal is systolic BP of at least 130 to 140 mm or less Continue Lisinopril 40 mg QD, HCTZ 25 mg QD in AM and Amlodipine 5 mg QD (3) Pure hypercholesterolemia: Code(s): E78.00 - Pure hypercholesterolemia, unspecified Category: Medical Plan: Patient was again not able to get his follow up labs done prior to his appointment today Reinforced low cholesterol diet Continue Theodosia-3 capsules 340 mg QD and Atorvastatin 10 mg QD Will recheck his labs and fasting lipids again in 4 months for follow up - will just have patient use his previous lab orders (updated) for his next lab draw in June 2025 (4) Obstructive sleep apnea: Comment: uses CPAP nightly Code(s): G47.33 - Obstructive sleep apnea (adult) (pediatric) Category: Medical Plan: Patient continues to use his CPAP device regularly/daily when sleeping at night - feels that it is still helping him a lot (5) Vitamin D deficiency: Code(s): E55.9 - Vitamin D deficiency, unspecified Category: Medical Plan: Continue Vitamin D3 2000 units QD (6) Renal calculi: Code(s): N20.0 - Calculus of kidney Category: Medical Plan: The composition of his kidney stones in the past were mostly calcium oxalate He has been asymptomatic lately and is again encouraged to continue to increase his oral fluid intake He had a repeat renal US done last year that revealed (+) bilateral non-obstructing renal stones measuring up to 7 mm on the right and 2 mm on the left with some new from prior. Left renal pelviectasis without rudi hydronephrosis Follow up with urology (Dr. Mckenzie) as scheduled (7) Bilateral primary osteoarthritis of knee: Code(s): M17.0 - Bilateral primary osteoarthritis of knee Category: Medical Plan: MRI of the right knee done in 02/2023 revealed (+) complex tearing of the posterior medial meniscal body with a near-complete radial component as well as a superiorly displaced meniscal flap. Complex tearing extends along the inner margin and tibial articular surface of the posterior horn and root. There is also moderate medial as well as mild patellofemoral compartment osteoarthritis and moderate joint effusion and trace Stacy's cyst Patient underwent right knee arthroscopic surgery with Dr. Francois back in March 2023 with some relief of symptoms but as his knee continued to bother him a lot, he eventually underwent repeat arthroscopic surgery as well as successful partial right medial meniscectomy on 05/11/2024 - patient states that his right knee has been feeling a lot better since Follow up with orthopedics as scheduled (8) Morbid obesity with BMI of 40.0-44.9, adult: Code(s): E66.01 - Morbid (severe) obesity due to excess calories; Z68.41 - Body mass index [BMI] 40.0-44.9, adult Category: Medical Plan: Reinforced diet/exercise as tolerated/lose weight Plan Follow up in 4 months Orders: Orders AMB Hemoglobin A1c Today Z13.9 - Encounter for screening, unspecified
== END 2025-02-19 10:07 | disposition home or self-care (01) ==
LOC: HO.HMCH 09:11
PROVIDERS: PCP Internal Medicine; Visit Provider Internal Medicine
DX: E11.65 Type 2 diabetes mellitus with hyperglycemia (principal); Z68.41 Body mass index [BMI] 40.0-44.9, adult; E66.01 Morbid (severe) obesity due to excess calories; I10 Essential (primary) hypertension; E78.00 Pure hypercholesterolemia, unspecified; G47.33 Obstructive sleep apnea (adult) (pediatric); E55.9 Vitamin D deficiency, unspecified; N20.0 Calculus of kidney; M17.0 Bilateral primary osteoarthritis of knee

== ENCOUNTER → 2025-02-19 09:11 | Outpatient (BNVA) | payer MEDICARE, SELFPAY | PROVIDERS: PCP Internal Medicine; Visit Provider Internal Medicine | DX: E11.65 Type 2 diabetes mellitus with hyperglycemia (principal); I10 Essential (primary) hypertension; E78.00 Pure hypercholesterolemia, unspecified; G47.33 Obstructive sleep apnea (adult) (pediatric); E55.9 Vitamin D deficiency, unspecified; N20.0 Calculus of kidney; M17.0 Bilateral primary osteoarthritis of knee; E66.01 Morbid (severe) obesity due to excess calories; Z68.41 Body mass index [BMI] 40.0-44.9, adult; Z13.31 Encounter for screening for depression; Z13.39 Encounter for screening examination for other mental health and behavioral disorders | CPT/HCPCS: 83036; 96127; 99212 ==

== ENCOUNTER 2025-03-19 07:40 | Outpatient (AMB) | payer MEDICARE, SELFPAY ==
--- NOTE | 2025-03-19 08:00 | MHC.OFFVIS ---
Vital Signs 03/19/25 08:03 Height 5 ft 5 in Weight 255 lb 15.307 oz BMI 42.6 BP 100/68 Blood Pressure Location Lt brachial Position Sitting Pulse 96 Pulse Source Pulse Oximeter Pulse Oximetry (%) 94 Oxygen Delivery Method Room Air Intake Visit Reasons: Diabetes Intake Note: Patient presents today for a follow-up on Type 2 Diabetes Mellitus: Patient would like to discuss increasing Mounjaro dose. Last Diabetic eye exam was on: 06/2024 Last Podiatry exam was on: Patient does not see a Electric Motor Repairer Most recent HbA1c: 7.8%, 02/19/2025 Random Glucose: 178 mg/dL Software Lead Required: No Accompanied by: Self / Same As Patient Allergies mold Allergy (Intermediate, Verified 03/19/25 08:03) HAYFEVER metformin Adverse Reaction (Severe, Verified 03/19/25 08:03) severe fatigue; exhaustion DUST Allergy (Intermediate, Uncoded 03/19/25 08:03) HAYFEVER Medication List - Last Reconciled 03/19/25 by Yeimiet Lucy Kauffman MD amlodipine 5 mg PO DAILY 90 days aspirin 81 mg PO DAILY atorvastatin 10 mg PO BEDTIME 90 days blood sugar diagnostic (FreeStyle Lite Strips) As directed to check blood sugars once a day blood-glucose meter (FreeStyle Lite Meter kit) As directed to check blood sugars once a day [C Pap nasal pillow resmed airfit P30 I As directed] clotrimazole-betamethasone 1-0.05 % 1 appl topical BID 2 weeks [CPAP DEVICE RESMED full face MASK MEDIUM As directed start 4-16 cm H2O humidified AIR] glipizide ER 5 mg PO QAM 90 days hydrochlorothiazide 25 mg PO DAILY 90 days lancets (FreeStyle Lancets) As directed to check blood sugars once a day lisinopril 40 mg PO DAILY 90 days potassium citrate ER 20 mEq (2 x 10 mEq (1,080 mg)) PO BID 90 days testosterone 1 packet transdermal DAILY 30 days tirzepatide (Mounjaro) 7.5 mg (0.5 mL) subcut QWEEK HPI Comments Details: 69-year-old male here today for follow up of type 2 diabetes mellitus. History of diabetes Diagnosed with DM type 2 some time around 2020. Gained a lot of weight around 2018 never been on insulin Prior therapy: metformin at some time in the past , apparently listed as an allergy but just says severe exhaustion? Current regimen: Glipizide ER 5 mg daily Last visit September 2024 I had prescribed him Trulicity initially and then we discovered his insurance prefers Mounjaro, Solitario prescribed but patient reports a lot of frustration with the obtaining the medication for the past 6 weeks. Finally he has a his medications. But then he got confused about which medication he was supposed to stop once he started the GLP 1 agonist, so at this time he has not been taking any medications. Does reports symptoms of hyperglycemia isuch as polyuria polydipsia. Denies any hypoglycemic symptoms. SMBG's Patient is measuring BG once daily in the AM, average BG 142 average Vaccines: opts out of flu vaccine for the past 5 years. Got the initial moderna x2 but no boosters . Alcohol : 2-3 drink s a week just on Complications Eye exam: Last eye exam was 07/10. no history of retinopathy Neuropathy: no symptoms , no boilermaker apprentice Kidney disease: no history Macrovascular complications: No history of macrovascular complications. Statin:atorvastatin 10 mg daily NICA/ARB: lisinopril 40 mg daily Exercise: doesnt exercise at all Diet control: 7 30 AM BF sandwich, one glass of orange juice noon : sandwich , burger 5 to 60 30 : dinner meat loaf , spaghetti , steak Normally eats in Sometimes eats a piece of cake He saw the environmental educator and quality assurance advisor. He has never had any hospitalizations for hyperglycemia/hypoglycemia. Interval history: Currently taking Mounjaro 5mg for the last 8 wks No side effects Has lost about 18 lbs since started on Mounjaro Denies lows Still taking Glipizide 5mg daily Reports eating only 1 meal a day UNable to exercise much due to knee injury Physical exam: General: Well appearing. NAD. Not Cushingoid or Acromegalic Neck/Thyroid: Thyroid not palpable, no nodules. Eyes: No conjunctival injection, not lid lag or proptosis CV: RRR, no murmur. No edema. Resp:Lungs clear to auscultation bilaterally Abdomen: Soft, nontender. nondistended Extremities/Neuro: No weakness or tremor of outstretched hands Laboratory Tests 11/10/19 12/29/23 06/19/24 07:42 06:53 06:56 WBC 4.6 L Hgb 15.6 Hct 45.9 Plt Count 268 Sodium 141 Potassium 3.7 Creatinine 0.80 Estimated GFR > 60 Fasting Glucose 237 H Estimat Average Glucose 192 Hgb A1c (Clinic) Hemoglobin A1c % 8.3 H Calcium 8.7 D AST 36 ALT 49 H Triglycerides 336 H Cholesterol 160 LDL Cholesterol, Calc 59 HDL Cholesterol 34 L Vitamin B12 498 Urine Creatinine 264.06 Urine Microalbumin 17.0 Microalb/Creat Ratio 6.4 JASPREET Antibody <5 10/18/24 14:36 WBC Hgb Hct Plt Count Sodium Potassium Creatinine Estimated GFR Fasting Glucose Estimat Average Glucose Hgb A1c (Clinic) 9.2 H Hemoglobin A1c % Calcium AST ALT Triglycerides Cholesterol LDL Cholesterol, Calc HDL Cholesterol Vitamin B12 Urine Creatinine Urine Microalbumin Microalb/Creat Ratio JASPREET Antibody PFSH Medical History HLD (hyperlipidemia) Obesity Arthritis Warthin's tumor Vitamin D deficiency Localized swelling, mass and lump, right upper limb Morbid obesity with BMI of 40.0-44.9, adult Obstructive sleep apnea Renal calculi Pure hypercholesterolemia Benign essential hypertension Hx of renal calculi HTN (hypertension) Diabetes Adenomatous colon polyp Surgical History Status post medial meniscectomy of right knee S/P right knee arthroscopy Hx of appendectomy Hx of cystoscopy Hx of cystoscopy H/O lithotripsy Hx of colonoscopy (~03/15/17) History of parotidectomy Family History Father CVD (cardiovascular disease) Mother Cancer Colon cancer Social History Household Members: Spouse Housing: House Are you a primary caretaker to a significant other at home: No Do you presently have visiting nurse or other home services: No Alcohol intake: current Alcohol intake frequency: holidays/special occasions only Patient Tobacco Use Status: Former Tobacco user Tobacco use type: Cigarette Years Smoked: 30 e-Cigarette/Vaping Use: Never Used Second Hand Smoke Exposure: No service: No Current occupational status: employed 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 [employer] Cognitive needs: No Hearing needs: No Vision needs: No Physical Exam Vital Signs: BMI result Body Mass Index 42.6 Telemedicine evaluation Appropriate responses Regular breathing rate and rhythm HEENT Head: Yes normal to inspection Ears: hearing grossly normal bilaterally Eyes General: appearance normal, both eyes and all related structures Neck Neck: Yes normal visual inspection Chest Chest palpation & inspection: normal inspection of the chest Resp Effort & Inspection: normal respiratory effort and able to speak in complete sentences Assessment & Plan Assessment & Plan (1) Diabetes: Code(s): E11.9 - Type 2 diabetes mellitus without complications Category: Medical Qualifiers: Diabetes mellitus type: type 2 Diabetes mellitus terminologist insulin use: without long-term use Diabetes mellitus complication status: with hyperglycemia Qualified Code(s): E11.65 - Type 2 diabetes mellitus with hyperglycemia Plan: 69-year-old male coming in today for follow up of type 2 diabetes mellitus without long-term insulin use with hyperglycemia. A1c at 9.2% from October 2024. His control has worsened recently as he used to be 8.3 % in June 2024 Blood sugar elevated today at 292 mg/dL. He established care with me in October 2024, at this time he has not been testing his blood sugars. He was only recently able to obtain his testing supplies, said it was much cheaper off some other brand he got off [employer]. I have asked him to bring all of his testing supplies to next appointment. He was only on glipizide and Januvia. For the past few days he has not taken any medications because he was having confusion regarding what he is supposed to be on. Apparently metformin had some adverse reaction in the past, he has not really sure what happened. It is listed as an allergy. He has been using mounjaro 5mg for the last 6 weeks, reports no side effects. He also uses Glipize 5mg daily but no hypoglycemia. Discussed that with increased Mounjaro doses, is possible to develop hypoglycemia and explain how to treat it. Plan: -Increase Mounjaro 7.5 mg weekly injection, after 4 week we can consider titrating up the dose. -continue glipizide 5 mg extended release daily -discussed importance of monitoring blood sugars and and bring meter to all appointments -discussed importance of 30 minutes of walk 5 days a week -does not have boilermaker apprentice, foot exam unremarkable today -follow up with the educator and quality assurance advisor -follow up in 3 months (2) Obesity: Code(s): E66.9 - Obesity, unspecified Category: Medical Qualifiers: Obesity type: due to excess calories Obesity classification: adult class 3 (BMI >= 40) Serious obesity comorbidity presence: with serious comorbidity Body mass index: BMI 40.0-44.9 Qualified Code(s): E66.813 - Obesity, class 3; Z68.41 - Body mass index [BMI] 40.0-44.9, adult Plan: Current BMI 42.6 kg per m2 Current weight 255 lb Lifestyle modification as discussed above -Increase Mounjaro 7.5 mg weekly, with plan for up titration in the coming weeks (3) HLD (hyperlipidemia): Code(s): E78.5 - Hyperlipidemia, unspecified Category: Medical Qualifiers: Hyperlipidemia type: mixed hyperlipidemia Qualified Code(s): E78.2 - Mixed hyperlipidemia Plan: Triglyceride levels elevated from August 2024. LDL is within goal of 70 mg/dL. Triglycerides level we will improve with better control of diabetes. Plan: -continue atorvastatin 10 mg daily Plan I spent 30 minutes in reviewing the record, seeing the patient and documenting in the medical record. Medications: New tirzepatide (Mounjaro) 7.5 mg (0.5 mL) subcut QWEEK 2 mL 1RF Discontinued tirzepatide (Mounjaro) Discontinued Reason: Doctor's Order 5 mg (0.5 mL) subcut QWEEK 2 mL 6RF Coding Level of Care Code Est Pt Level 4 (84669) Diagnoses Type 2 diabetes mellitus with hyperglycemia, without long-term current use of insulin E11.65 Diabetes mellitus type: type 2 Diabetes mellitus long-term insulin use: without long-term use Diabetes mellitus complication status: with hyperglycemia Class 3 severe obesity due to excess calories with serious comorbidity and body mass index (BMI) of 40.0 to 44.9 in adult E66.813; Z68.41 Obesity type: due to excess calories Obesity classification: adult class 3 (BMI >= 40) Serious obesity comorbidity presence: with serious comorbidity Body mass index: BMI 40.0-44.9 Mixed hyperlipidemia E78.2 Hyperlipidemia type: mixed hyperlipidemia
[2025-03-19 08:03] VITALS: BP 100/68; PULSE 96; O2SAT 94; BMI 42.6
[2025-03-19 08:20] LABS: Glucose, Whole Blood 178 mg/dL (60-115)
== END 2025-03-19 08:31 | disposition home or self-care (01) ==
LOC: HO.ENCR 07:40
PROVIDERS: PCP Internal Medicine; Visit Provider Student in an Organized Health Care Education/Training Program
DX: E11.65 Type 2 diabetes mellitus with hyperglycemia (principal); E66.813 Obesity, class 3; Z68.41 Body mass index [BMI] 40.0-44.9, adult; E78.2 Mixed hyperlipidemia
CPT/HCPCS: 99214

== ENCOUNTER → 2025-03-19 07:40 | Outpatient (BNVA) | payer MEDICARE, SELFPAY | PROVIDERS: PCP Internal Medicine; Visit Provider Student in an Organized Health Care Education/Training Program | DX: E11.65 Type 2 diabetes mellitus with hyperglycemia (principal); E66.813 Obesity, class 3; E78.2 Mixed hyperlipidemia; Z68.41 Body mass index [BMI] 40.0-44.9, adult | CPT/HCPCS: 82947; 99212 ==

== ENCOUNTER 2025-03-25 07:43 | Outpatient (AMB) | payer MEDICARE, SELFPAY ==
--- NOTE | 2025-03-25 08:34 | A.OFFVIS_ITS ---
Intake Intake Visit Reasons: 60 min Contour Grinder Required: No Accompanied by: Self / Same As Patient Allergies mold Allergy (Intermediate, Verified 03/19/25 08:03) HAYFEVER metformin Adverse Reaction (Severe, Verified 03/19/25 08:03) severe fatigue; exhaustion DUST Allergy (Intermediate, Uncoded 03/19/25 08:03) HAYFEVER HPI Comprehensive Diabetes Asmnt Most Recent Diabetes Results: 2 Microalb/Creat Ratio, (<30) 6.4 ug/mg cr 12/29/23 Cholesterol, (<200) 160 mg/dL 06/19/24 HDL Cholesterol, (>40) 34 mg/dL L 06/19/24 Triglycerides, (<150) 336 mg/dL H 06/19/24 Creatinine, (0.5-1.4) 0.80 mg/dL 06/19/24 BUN, (9-16) 12 mg/dL 06/19/24 Sodium, (135-145) 141 mmol/L 06/19/24 Potassium, (3.3-5.1) 3.7 mmol/L 06/19/24 Chloride, (96-108) 107 mmol/L 06/19/24 Carbon Dioxide, (22-29) 24 mmol/L 06/19/24 Calcium, (8.4-10.2) 8.7 mg/dL Δ 06/19/24 AST, (5-37) 36 U/L 06/19/24 ALT, (0-40) 49 U/L H 06/19/24 Total Protein, (6.5-8.0) 7.3 g/dL 06/19/24 Albumin, (3.5-5.0) 3.8 g/dL 06/19/24 [facility] Medical History HLD (hyperlipidemia) Obesity Arthritis Warthin's tumor Vitamin D deficiency Localized swelling, mass and lump, right upper limb Morbid obesity with BMI of 40.0-44.9, adult Obstructive sleep apnea Renal calculi Pure hypercholesterolemia Benign essential hypertension Hx of renal calculi HTN (hypertension) Diabetes Adenomatous colon polyp Surgical History Status post medial meniscectomy of right knee S/P right knee arthroscopy Hx of appendectomy Hx of cystoscopy Hx of cystoscopy H/O lithotripsy Hx of colonoscopy (~03/15/17) History of parotidectomy Family History Father CVD (cardiovascular disease) Mother Cancer Colon cancer Social History Household Members: Spouse Housing: House Are you a primary home care attendant to a significant other at home: No Do you presently have visiting nurse or other home services: No Alcohol intake: current Alcohol intake frequency: holidays/special occasions only Patient Tobacco Use Status: Former Tobacco user Tobacco use type: Cigarette Years Smoked: 30 e-Cigarette/Vaping Use: Never Used Second Hand Smoke Exposure: No service: No Current occupational status: employed Current occupation: [employer] Cognitive needs: No Hearing needs: No Vision needs: No Assessment & Plan Assessment & Plan (1) Diabetes: Code(s): E11.9 - Type 2 diabetes mellitus without complications Qualifiers: Diabetes mellitus type: type 2 Diabetes mellitus terminal make up operator insulin use: without terminal make up operator use Diabetes mellitus complication status: with hyperglycemia Qualified Code(s): E11.65 - Type 2 diabetes mellitus with hyperglycemia Plan: (2) Diabetes mellitus: Code(s): E11.9 - Type 2 diabetes mellitus without complications Qualifiers: Diabetes mellitus type: type 2 Diabetes mellitus terminal make up operator insulin use: without care home use Diabetes mellitus complication status: with hyperglycemia Qualified Code(s): E11.65 - Type 2 diabetes mellitus with hyperglycemia Plan: Diabetes self-management education and support participation record Assessment/scale: 1= needs instructed? 2= needs review? 3= comprehend keep point? 4= demonstrates understanding/ competent? NC= Not Covered Topics Learning Objective: Initial visit Initial or post srvc Initial or post srvc Initial or post srvc Initial or post srvc Initial or post srvc Post srvc Comments Pre Edu-assessment/plan Outcome or reassess O utcome or reassess Outcome or reassess Outcome or reassess Outcome or reassess Outcome or reassess Diabetes pathophysiology 1 3 Healthy eating 1 3 Being active 1 2 Taking medication 1 4 Monitoring glucose 1 4 Acute complication 1 3 Chronic complicated 2 Lifestyle and healthy coping 1 Diabetes distress in support 1 ?Diabetes pathophysiology: ?Defined diabetes med identify own type of diabetes; list 3 options for treating diabetes Healthy eating: ?Described effect of type, amount and ?timing of food on blood glucose; list 3 methods for planning meal Being active: ?State effect of exercise on blood glucose level Taking medication: ?State effect of diabetes medications on diabetes; name diabetes medications taking, action and side effects Monitoring glucose: ?Identify recommended blood glucose targets and personal target Acute complication: ?List symptoms and treatment of hyper and hypoglycemia, DKA, sick day guidelines and guidelines for severe weather or situations of crisis and diabetes supply manage Chronic complication: ?To find the relationship of blood glucose levels to long- term complications of diabetes in screening and preventative measures Lifestyle and healthy coping: ?Described lifestyle and healthy coping strategies to rule out diabetes self-management Diabetes to stress and support: ?Recognize Diabetes to stress and be able to identified support options Learning objectives: The patient was provided with verbal and written education on the following topics as outlined below. Assess patient education level/literacy/barriers patient's last A1c on 02/19/2025 7.8% down from 9.3% in October 2024 Patient has titrated Mounjaro up to 5 mg, in 3 weeks he will titrate up to 7.5 mg Reports having diminished appetite on Mounjaro Created [employer] account and connected to patient's meter to clinic account The patient met all learning objectives and was able to verbalize understanding and provide teach back of education topics discussed . The patient was provided with the opportunity to ask questions and all questions were answered. Topics covered in today?s session included: Medications (If applicable) * Name of medication? * Dosing/administration instructions? * Mechanism of action? * Potential side effects? * Potential adverse reaction and appropriate treatment? * Review onset, peak, duration Assess for concerns re: insurance coverage, cost, barriers to compliance Insulin/Injectables (If applicable) * Storage/care of insulin?? * Injection sites? * Site rotation? * Onset, peak, duration * Drawing up insulin? * Injecting insulin/other injectables? * Sharps disposal Continuous blood glucose monitoring (if applicable) Hypoglycemia and Hyperglycemia * Signs and symptoms? * Causes?? * Treatment? * Preventing hypoglycemia? * When to seek medical attention Target Goals: * Blood glucose targets and how you feel when your blood glucose is in and out of your target ranges. * Monitoring and knowing your A1C. * What can make blood glucose go up and down and preventing high and low blood glucose. * Review of blood sugar targets in expected goal range and outside of expected goal range. * Problem solving and preventing hyper/hypoglycemia. * Sick day management of diabetes. * Using blood sugar results in decision making process in managing diabetes. ?Patient was receptive to information provided and participated in the discussion. Asked?appropriate questions and demonstrated good understanding of the topics discussed.? ? Educational Materials: The patient was provided with the following written educational materials: Target Goal handout Smart Goal Assessment:? Will identify foods in current meal plan that contain carbohydrates between now and next visit Pt met goal 75% New Smart Goal: Will test glucose prior to meal, 2 hours post meal Patient Response to instructions: Comprehension of Instructions: Good Readiness to make changes:? Action How confident they feel about making changes: Positive Portions of this note were created using voice recognition software, please excuse any words or phrases that may have been misinterpreted. Coding Level of Care Code Est Pt Level 1 (81021) Diagnoses Type 2 diabetes mellitus with hyperglycemia, without long-term current use of insulin E11.65 Diabetes mellitus type: type 2 Diabetes mellitus care home insulin use: without terminal make up operator use Diabetes mellitus complication status: with hyperglycemia
== END 2025-03-25 08:39 | disposition home or self-care (01) ==
LOC: HO.ENCR 07:44
PROVIDERS: PCP Internal Medicine; Visit Provider Registered Nurse Diabetes Educator
DX: E11.65 Type 2 diabetes mellitus with hyperglycemia (principal)

== ENCOUNTER → 2025-03-25 07:43 | Outpatient (BNVA) | payer MEDICARE, SELFPAY | PROVIDERS: PCP Internal Medicine; Visit Provider Registered Nurse Diabetes Educator | DX: E11.65 Type 2 diabetes mellitus with hyperglycemia (principal) | CPT/HCPCS: 99211 ==